=== PATIENT | female | born 1965 | race Caucasian/White ===

== ENCOUNTER → 2017-09-20 | Outpatient (CLI) | payer SELFPAY ==
--- NOTE | 2017-09-21 09:31 | ECHOF ---
Referral Reason:R07.9 Intermittent Chest Pain MEASUREMENTS -------- HEIGHT: 170.2 cm WEIGHT: 76.2 kg BP: 128/75 RVIDd: 2.8 cm (< 3.3) IVSd: 1.0 cm (0.6 - 1.1) LVIDd: 3.7 cm (3.9 - 5.3) LVPWd: 1.2 cm (0.6 - 1.1) IVSs: 1.4 cm LVIDs: 3.3 cm LVPWs: 1.4 cm LAESV Index (A-L): 11.20 ml/m Ao Diam: 2.3 cm (2.0 - 3.7) LA Diam: 3.3 cm (2.7 - 3.8) MV EXCURSION: 13.666 mm (> 18.000) MV EF SLOPE: 87 mm/s (70 - 150) EPSS: 0.6 cm MV E Kumar: 0.78 m/s MV DecT: 232 ms MV A Kumar: 0.78 m/s MV E/A Ratio: 1.01 RAP: 5.00 mmHg RVSP: 11.33 mmHg FINDINGS -------- Sinus rhythm. This was a technically adequate study. The left ventricular size is normal. There is borderline concentric left ventricular hypertrophy. Overall left ventricular systolic function is normal with, an EF between 55 - 60 %. The right ventricle is normal in size and function. Normal LA size by volume 22+/-6 ml/m2. The right atrium is normal in size. The aortic valve is trileaflet, and appears structurally normal. No aortic stenosis or regurgitation. The mitral valve leaflets are mildly thickened. There is trace mitral regurgitation. Trace tricuspid regurgitation present. Right ventricular systolic pressure is normal at < 35 mmHg. There is no evidence of pulmonary hypertension. The pulmonic valve was not well visualized. The aortic root size is normal. Normal inferior vena cava with normal inspiratory collapse consistent with estimated right atrial pre ssure of 5 mmHg. The pericardium is normal. Echo free space indicative of a pericardial fat pad. There is a trivia l pericardial effusion present. CONCLUSIONS -------- 1. Sinus rhythm. 2. This was a technically adequate study. 3. The left ventricular size is normal. 4. There is borderline concentric left ventricular hypertrophy. 5. Overall left ventricular systolic function is normal with, an EF between 55 - 60 %. 6. Normal LA size by volume 22+/-6 ml/m2. 7. The aortic valve is trileaflet, and appears structurally normal. No aortic stenosis or regurgitati on. 8. The mitral valve leaflets are mildly thickened. 9. There is trace mitral regurgitation. 10. Trace tricuspid regurgitation present. 11. Right ventricular systolic pressure is normal at < 35 mmHg. 12. There is no evidence of pulmonary hypertension. 13. The pulmonic valve was not well visualized. 14. The aortic root size is normal. 15. There is a trivial pericardial effusion present. RECEIVING INSPECTOR: Nelson Jones RDCS
== END | disposition home or self-care (01) ==
LOC: RADECHMAIN 14:55
PROVIDERS: ATTEND Family Medicine
DX: I51.7 Cardiomegaly (principal)
CPT/HCPCS: 93306

== ENCOUNTER 2017-09-27 10:37 | Observation (INO) | payer OTHER ==
[2017-09-27] MEDS ORDERED: NITROGLYCERIN OINT 1 INCH/GM PACKET TOPICAL STA (10:54)
--- NOTE | 2017-09-27 11:00 | ED ---
General Adult HPI - General Chief complaint: Chest Pain Stated complaint: Chest Pain Time Seen by Provider: 09/27/17 10:40 Source: patient, RN notes reviewed Mode of arrival: EMS Limitations: no limitations - History of Present Illness Initial comments: This is a 52-year-old female who presents emergency Department complaining that she started having chest pain yesterday she denies any radiation of the pain but she does states she is more short of breath than normal. Patient states she does have high cholesterol and continues to smoke. Patient also states she she has a strong family history. Patient states the pain does come and go and lasts about a half hour to an hour at a time and currently she is chest pain- free. Patient states she did take an aspirin prior to arrival. Patient denies any recent fever chills or cough. Patient denies any abdominal pain patient denies any nausea or vomiting or diarrhea today. Patient denies headache patient denies numbness weakness. Patient denies lightheadedness dizziness or near syncopal episode. Patient went to see her primary medical care doctor today and they directed her to the emergency department. - Related Data Home Medications Medication Instructions Recorded Confirmed Albuterol Inhaler [Ventolin Hfa 1 - 2 puff INHALATION RT-Q6H PRN 09/27/17 Inhaler] Albuterol Nebulized [Ventolin 2.5 mg INHALATION RT-BID 09/27/17 09/27/17 Nebulized] Ergocalciferol [Vitamin D2] 50,000 unit PO MOFR 09/27/17 09/27/17 OLANZapine [ZyPREXA] 5 mg PO DAILY 09/27/17 09/27/17 Simvastatin [Zocor] 10 mg PO DAILY 09/27/17 09/27/17 Allergies Allergy/AdvReac Type Severity Reaction Status Date / Time codeine AdvReac Nausea & Verified 09/27/17 11:42 Vomiting Review of Systems ROS Statement: Those systems with pertinent positive or pertinent negative responses have been documented in the HPI. ROS Other: All systems not noted in ROS Statement are negative. Past Medical History Past Medical History: Hyperlipidemia History of Any Multi-Drug Resistant Organisms: None Reported Past Psychological History: Depression Smoking Status: Current every day smoker Past Alcohol Use History: None Reported Past Drug Use History: None Reported General Exam - General Exam Comments Initial Comments: GENERAL: Patient is well-developed and well-nourished. Patient is nontoxic and well- hydrated and is in mild distress. ENT: Neck is soft and supple. No significant lymphadenopathy is noted. Oropharynx is clear. Moist mucous membranes. Neck has full range of motion without eliciting any pain. EYES: The sclera were anicteric and conjunctiva were pink and moist. Extraocular movements were intact and pupils were equal round and reactive to light. Eyelids were unremarkable. PULMONARY: Unlabored respirations. Good breath sounds bilaterally. No audible rales rhonchi or wheezing was noted. CARDIOVASCULAR: There is a regular rate and rhythm without any murmurs gallops or rubs. ABDOMEN: Soft and nontender with normal bowel sounds. No palpable organomegaly was noted. There is no palpable pulsatile mass. SKIN: Skin is clear with no lesions or rashes and otherwise unremarkable. NEUROLOGIC: Patient is alert and oriented x3. Cranial nerves II through XII are grossly intact. Motor and sensory are also intact. Normal speech, volume and content. Symmetrical smile. MUSCULOSKELETAL: Normal extremities with adequate strength and full range of motion. No lower extremity swelling or edema. No calf tenderness. LYMPHATICS: No significant lymphadenopathy is noted PSYCHIATRIC: Normal psychiatric evaluation. Normal interpersonal interactions appears functionally intact in deals appropriately with others. No signs of depression. No signs of anxiety. Limitations: no limitations Course Vital Signs 09/27/17 10:42 Temperature 99.2 F Pulse Rate 90 Respiratory 18 Rate Blood Pressure 127/70 O2 Sat by Pulse 99 Oximetry Medical Decision Making - Medical Decision Making EKG shows a normal sinus rhythm at 90 bpm [place] interval is 162 QRS is 72 QT interval 380 QTC is 464 patient's EKG shows no ST segment elevation or depression or T wave abnormalities are noted. Chest x-ray shows no acute abnormality Patient has significant risk factors and pain was consistent with unstable angina. I started the patient on heparin. I spoke with Dr. Pisano he agreed to admit the patient admitted the patient I consult cardiology. I continue the aspirin and Nitropaste and heparin on the floor. - Lab Data Result diagrams: 09/27/17 11:10 09/27/17 11:10 Lab Results 09/27/17 09/27/17 09/27/17 Range/Units 11:10 11:10 11:10 WBC 7.1 (3.8-10.6) k/uL RBC 4.12 (3.80-5.40) m/uL Hgb 13.3 (11.4-16.0) gm/dL Hct 41.0 (34.0-46.0) % MCV 99.5 (80.0-100.0) fL MCH 32.3 (25.0-35.0) pg MCHC 32.4 (31.0-37.0) g/dL RDW 12.8 (11.5-15.5) % Plt Count 260 (150-450) k/uL Neutrophils % 60 % Lymphocytes % 33 % Monocytes % 5 % Eosinophils % 1 % Basophils % 1 % Neutrophils # 4.2 (1.3-7.7) k/uL Lymphocytes # 2.3 (1.0-4.8) k/uL Monocytes # 0.3 (0-1.0) k/uL Eosinophils # 0.1 (0-0.7) k/uL Basophils # 0.0 (0-0.2) k/uL PT (9.0-12.0) sec INR (<1.2) APTT (22.0-30.0) sec Sodium 145 (137-145) mmol/L Potassium 4.1 (3.5-5.1) mmol/L Chloride 104 (98-107) mmol/L Carbon Dioxide 31 H (22-30) mmol/L Anion Gap 10 mmol/L BUN 21 H (7-17) mg/dL Creatinine 0.80 (0.52-1.04) mg/dL Est GFR (MDRD) Af Amer >60 (>60 ml/min/1.73 sqM) Est GFR (MDRD) Non-Af >60 (>60 ml/min/1.73 sqM) Glucose 80 (74-99) mg/dL Calcium 9.8 (8.4-10.2) mg/dL Magnesium 2.1 (1.6-2.3) mg/dL Total Bilirubin <0.1 L (0.2-1.3) mg/dL AST 24 (14-36) U/L ALT 18 (9-52) U/L Alkaline Phosphatase 68 (38-126) U/L Total Creatine Kinase 147 H (30-135) U/L CK-MB (CK-2) 1.4 (0.0-2.4) ng/mL CK-MB (CK-2) Rel Index 1.0 Troponin I <0.012 (0.000-0.034) ng/mL Total Protein 6.8 (6.3-8.2) g/dL Albumin 4.1 (3.5-5.0) g/dL 09/27/17 Range/Units 11:10 WBC (3.8-10.6) k/uL RBC (3.80-5.40) m/uL Hgb (11.4-16.0) gm/dL Hct (34.0-46.0) % MCV (80.0-100.0) fL MCH (25.0-35.0) pg MCHC (31.0-37.0) g/dL RDW (11.5-15.5) % Plt Count (150-450) k/uL Neutrophils % % Lymphocytes % % Monocytes % % Eosinophils % % Basophils % % Neutrophils # (1.3-7.7) k/uL Lymphocytes # (1.0-4.8) k/uL Monocytes # (0-1.0) k/uL Eosinophils # (0-0.7) k/uL Basophils # (0-0.2) k/uL PT 9.4 (9.0-12.0) sec INR 0.9 (<1.2) APTT 22.1 (22.0-30.0) sec Sodium (137-145) mmol/L Potassium (3.5-5.1) mmol/L Chloride (98-107) mmol/L Carbon Dioxide (22-30) mmol/L Anion Gap mmol/L BUN (7-17) mg/dL Creatinine (0.52-1.04) mg/dL Est GFR (MDRD) Af Amer (>60 ml/min/1.73 sqM) Est GFR (MDRD) Non-Af (>60 ml/min/1.73 sqM) Glucose (74-99) mg/dL Calcium (8.4-10.2) mg/dL Magnesium (1.6-2.3) mg/dL Total Bilirubin (0.2-1.3) mg/dL AST (14-36) U/L ALT (9-52) U/L Alkaline Phosphatase (38-126) U/L Total Creatine Kinase (30-135) U/L CK-MB (CK-2) (0.0-2.4) ng/mL CK-MB (CK-2) Rel Index Troponin I (0.000-0.034) ng/mL Total Protein (6.3-8.2) g/dL Albumin (3.5-5.0) g/dL Critical Care Time Critical Care Time: Yes Total Critical Care Time: 35 Disposition Clinical Impression: Unstable angina pectoris Disposition: ADMITTED IP TO THIS HOSP Referrals: Agustina Padron MD [Primary Care Provider] - 1-2 days Time of Disposition: 12:11
[2017-09-27 11:26] LABS: Basophils % (A) 1 %; Eosinophils # (A) 0.1 k/uL (0-0.7); Eosinophils % (A) 1 %; HGB 13.3 gm/dL (11.4-16.0); Lymphocytes # (A) 2.3 k/uL (1.0-4.8); Lymphocytes % (A) 33 %; MCH 32.3 pg (25.0-35.0); MCHC 32.4 g/dL (31.0-37.0); MCV 99.5 fL (80.0-100.0); Mean Platelet Volume 7.9; Monocytes # (A) 0.3 k/uL (0-1.0); Monocytes % (A) 5 %; Neutrophils # (A) 4.2 k/uL (1.3-7.7); Neutrophils % (A) 60 %; Platelet Count 260 k/uL (150-450); RBC 4.12 m/uL (3.80-5.40); RDW 12.8 % (11.5-15.5); WBC 7.1 k/uL (3.8-10.6)
[2017-09-27 11:33] LABS: ALT 18 U/L (9-52); AST 24 U/L (14-36); Albumin 4.1 g/dL (3.5-5.0); Alkaline Phosphatase 68 U/L (38-126); Anion Gap 10 mmol/L; Blood Urea Nitrogen 21 mg/dL (7-17); Calcium 9.8 mg/dL (8.4-10.2); Carbon Dioxide 31 mmol/L (22-30); Chloride 104 mmol/L (98-107); Glucose 80 mg/dL (74-99); Magnesium 2.1 mg/dL (1.6-2.3); Sodium 145 mmol/L (137-145); Total Bilirubin <0.1 mg/dL (0.2-1.3); Total Protein 6.8 g/dL (6.3-8.2)
[2017-09-27 11:34] LABS: Potassium 4.1 mmol/L (3.5-5.1)
[2017-09-27 11:41] LABS: Creatine Kinase 147 U/L (30-135)
--- NOTE | 2017-09-27 11:42 | XR ---
EXAMINATION TYPE: XR chest 2V DATE OF EXAM: 09/27/2017 COMPARISON: NONE INDICATION: Chest pain x2 days TECHNIQUE: Frontal and lateral views of the chest are obtained. FINDINGS: The heart size is normal. The pulmonary vasculature is normal. The lungs are clear. IMPRESSION: 1. No acute pulmonary process.
[2017-09-27 11:55] LABS: Creatine Kinase MB 1.4 ng/mL (0.0-2.4); Troponin I <0.012 ng/mL (0.000-0.034)
[2017-09-27 12:09] LABS: INR 0.9 (<1.2); Partial Thromboplastin Time 22.1 sec (22.0-30.0); Prothrombin Time 9.4 sec (9.0-12.0)
[2017-09-27] MEDS ORDERED: HEPARIN SODIUM,PORCINE 5,000 UNIT/ML 1 ML VIAL IV ONE (12:09)
[2017-09-27] MEDS ORDERED: NITROGLYCERIN SL TABS 0.4 MG TAB SUBLINGUAL PRN (12:11)
[2017-09-27] MEDS ORDERED: HEPARIN SOD,PORK IN 0.45% NACL 25,000 UNIT in 0.45% NACL 1 500ML.BAG IV SCH (12:15)
[2017-09-27] MEDS ORDERED: ALBUTEROL NEBULIZED 2.5 MG/3 ML INHALATION PRN (14:44)
[2017-09-27] MEDS ORDERED: TEMAZEPAM 15 MG CAP PO PRN (14:45)
[2017-09-27] MEDS ORDERED: ALPRAZolam 0.25 MG TAB PO PRN (14:45)
--- NOTE | 2017-09-27 15:27 | HP ---
HISTORY AND PHYSICAL DATE OF SERVICE: 09/27/2017 CHIEF COMPLAINT: Chest pain. HISTORY OF PRESENT ILLNESS: This 52-year-old woman with a past history of COPD, hypertension, hyperlipidemia , history of pneumonia, history bronchitis, history of depression, PTSD being followed by Dr. Agustina Padron in the outpatient setting was admitted with chest pain. The patient has had chest pains also the last night which was pressure type of pain which lasted for a few minutes. Pain also associated with shortness of breath and yesterday the patient had sweating. Two days ago the patient had sweating but last night, the patient not did not have sweating. Patient came to [facility] and was admitted for further evaluation and treatment. There is no history of fever, rigors. No history of headache, loss consciousness or seizures at this time. PAST MEDICAL HISTORY: History of COPD, hyperlipidemia, history of pneumonia, history of bronchitis, cancer surgery, history of depression and PTSD. MEDICATIONS: Prior to admission include: 1. Zyprexa 5 mg p.o. daily. 2. Vitamin D2 3000 daily. 3. Ventolin 2.5 b.i.d. 4. Ventolin 1-2 puffs q.6h p.r.n. inhaler. 5. Zocor 10 mg p.o. daily. ALLERGIES: CODEINE. FAMILY HISTORY: History of hypertension in the family. SOCIAL HISTORY: History of smoking. No history of alcohol intake. The patient apparently homeless at this time. REVIEW OF SYSTEMS: HEENT: No diminished vision. No diminished hearing. Cardiovascular as mentioned earlier. Respirations: As mentioned earlier. GI no nausea or vomiting. : No dysuria. Nervous system: No numbness, weakness. Allergy/Immunology: No asthma or hayfever. Musculoskeletal: As mentioned earlier. Allergy/immunology: No asthma or hay fever. Hematology/Oncology: No history of anemia. Endocrine: No history of diabetes, hypothyroidism. Constitutional: As mentioned earlier. Dermatology: Negative. Rheumatology: Negative. Psychiatry: As mentioned earlier. PHYSICAL EXAM: Patient is alert, oriented x3. Pulse is 77, blood pressure 135/72, respirations 16, temperature 98.7, pulse ox 97% on room air. HEENT: Conjunctivae normal. Neck : No jugular venous distention. Cardiovascular: S1, S2. Respiratory: Breath sounds diminished in the bases. A few rhonchi. No crackles. ABDOMEN: Soft, nontender. No mass palpable. Legs no edema. No swelling. Central nervous system: Higher functions as mentioned earlier. Moves all four extremities. No focal deficits. Lymphatics: No lymph nodes palpable in the neck, axillae or groin. Skin no ulcer, rash or bleeding. LABS: CBC within normal limits. INR 0.9, sodium 140, potassium 4.1. ASSESSMENT: 1. Chest pain possible unstable angina. 2. History of nicotine dependence. 3. History of chronic obstructive pulmonary disease. 4. Hyperlipidemia. 5. History pneumonia. 6. History of bronchitis. 7. History of cervical cancer surgeries. 8. History of depression. 9. PTSD. RECOMMENDATIONS AND DISCUSSION: In this 52-year-old woman who presented with multiple complex medical issues, at this time recommend to continue current medications, symptomatic treatment, management and smoking cessation. Unstable angina protocol. Antiplatelet agents. Cardiology consultation. Possible stress test. Closely follow. Guarded prognosis. Copy of dictation being forwarded to Dr. Agustina Padron. MMLIANA / TEOFILON: [id number] / MTDMorteza
[2017-09-27] MEDS: NITROGLYCERIN OINT 1 INCH/GM PACKET TOPICAL SCH (18:33)
[2017-09-27] MEDS: NICOTINE 14MG/24HR PATCH TRANSDERM SCH (18:33)
[2017-09-27 18:39] LABS: Appearance,Urine Clear (Clear); Bilirubin,Urine Negative (Negative); Blood,Urine Negative (Negative); Color,Urine Light Yellow; Glucose,Urine (UA) Negative (Negative); Ketones,Urine Negative (Negative); Leukocyte Esterase,Urine Negative (Negative); Nitrite,Urine Negative (Negative); PH, Urine 5.5 (5.0-8.0); Protein,Urine Negative (Negative); Specific Gravity,Urine 1.005 (1.001-1.035); Urobilinogen,Urine <2.0 mg/dL (<2.0)
[2017-09-27 19:27] LABS: Creatine Kinase 124 U/L (30-135)
[2017-09-27 19:41] LABS: Creatine Kinase MB 0.9 ng/mL (0.0-2.4); Troponin I <0.012 ng/mL (0.000-0.034)
[2017-09-27] MEDS: ALBUTEROL NEBULIZED 2.5 MG/3 ML INHALATION SCH (20:28)
[2017-09-27 23:26] LABS: Creatine Kinase 110 U/L (30-135)
[2017-09-27 23:39] LABS: Creatine Kinase MB 0.9 ng/mL (0.0-2.4); Troponin I <0.012 ng/mL (0.000-0.034)
[2017-09-28] MEDS: NITROGLYCERIN OINT 1 INCH/GM PACKET TOPICAL SCH ×2 (01:15→06:01)
[2017-09-28 03:20] LABS: HCT 38.3 % (34.0-46.0); HGB 11.9 gm/dL (11.4-16.0); MCH 31.7 pg (25.0-35.0); MCHC 31.2 g/dL (31.0-37.0); MCV 101.6 fL (80.0-100.0); Platelet Count 216 k/uL (150-450); RBC 3.77 m/uL (3.80-5.40); RDW 12.9 % (11.5-15.5); WBC 5.4 k/uL (3.8-10.6)
[2017-09-28 03:30] LABS: Anion Gap 7 mmol/L; Blood Urea Nitrogen 18 mg/dL (7-17); Calcium 9.2 mg/dL (8.4-10.2); Carbon Dioxide 28 mmol/L (22-30); Chloride 107 mmol/L (98-107); Cholesterol 161 mg/dL (<200); Glucose 94 mg/dL (74-99); HDL Cholesterol 58 mg/dL (40-60); LDL Cholesterol,Calculated 87 mg/dL (0-99); Potassium 4.2 mmol/L (3.5-5.1); Sodium 142 mmol/L (137-145); Triglycerides 79 mg/dL (<150)
[2017-09-28 05:15] LABS: Band Neutrophils % 2 %; Eosinophils # (M) 0.05 k/uL (0-0.7); Monocytes # (M) 0.22 k/uL (0-1.0); Neutrophils % (M) 30 %; Nucleated Red Blood Cells 0 /100 WBC (0-0); Total Cells Counted 100
[2017-09-28 05:20] LABS: Anisocytosis (M) Present
[2017-09-28 05:23] LABS: Polychromasia Present
[2017-09-28] MEDS ORDERED: ACETAMINOPHEN TAB 325 MG TAB PO PRN (07:15)
[2017-09-28] MEDS ORDERED: PANTOPRAZOLE 40 MG TABLET PO SCH (07:30)
[2017-09-28 07:40] VITALS: BP 92/49; RESP 16; TEMP 98.2
[2017-09-28] MEDS: ALBUTEROL NEBULIZED 2.5 MG/3 ML INHALATION SCH (07:46)
[2017-09-28] MEDS ORDERED: ASPIRIN 325 MG TAB PO SCH (09:00)
[2017-09-28] MEDS ORDERED: OLANZapine 5 MG TAB PO SCH (09:00)
[2017-09-28] MEDS ORDERED: ATORVASTATIN 10 MG TAB PO SCH (09:00)
[2017-09-28] MEDS: NICOTINE 14MG/24HR PATCH TRANSDERM SCH (09:56)
[2017-09-28 11:46] VITALS: PULSE 80
--- NOTE | 2017-09-28 11:56 | P.CRDCN ---
History of Present Illness Consult date: 09/28/17 Consult reason: chest pain History of present illness: Mrs. Jones is a pleasant 52-year-old past medical history significant for COPD, depression and chronic tobacco abuse. She denies history of coronary artery disease and has never seen a court recording monitor for any reason. We have been asked to see her in consultation for complaints of chest pain. She states she has had 2 episodes over the past 2 days, 1 each day, where she was walking and she developed mid-sternal sharp chest pain associated with shortness of breath, palpitations, wheezing, dizziness and nausea. The pain does not radiate to her arms, back, neck or jaw. She sat down once the symptoms started and the discomfort went away eventually, not immediately. At the time of my exam she is chest pain free but complains of pain to the left mid back that she states is chronic. The pain in the back is reproducible with palpation. EKG on arrival reveals sinus mechanism with no acute ST or T-wave abnormalities. Chest xray is negative for an acute cardiopulmonary process. Laboratory data reviewed, hemoglobin 11.9, platelets 216, potassium 4.2, magnesium 2.1, cardiac enzymes negative 3, LDL 87, HDL 58 total cholesterol 161. Current cardiac medications include simvastatin 10 mg daily. She had an echocardiogram done last week as an outpatient per her PCP which revealed preserved LV function with EF 55-60%, trace MR and TR. She denies ever having had a stress test or cardiac catheterization. Review of Systems At the time of my exam: CONSTITUTIONAL: Denies fever. Denies chills. EYES: Denies blurred vision. Denies vision changes. Denies eye pain. EARS, NOSE, MOUTH & THROAT: Denies headache. Denies sore throat. Denies ear pain. CARDIOVASCULAR: Denies chest pain. Denies shortness of breath. Denies orthopnea. Denies PND. Denies palpitations. RESPIRATORY: Denies cough. GASTROINTESTINAL: Denies abdominal pain. Denies diarrhea. Denies constipation. Denies nausea. Denies vomiting. MUSCULOSKELETAL: Complains of chronic left mid back ache, reproducible. INTEGUMENTARY: Denies pruitis. Denies rash. NEUROLOGIC: Denies numbness. Denies tingling. Denies weakness. PSYCHIATRIC: Denies anxiety. Denies depression. ENDOCRINE: Denies fatigue. Denies weight change. Denies polydipsia. Denies polyurina. GENITOURINARY: Denies burning, hematuria or urgency with micturation. HEMATOLOGIC: Denies history of anemia. Denies bleeding. Past Medical History Past Medical History: Cancer, COPD, Hyperlipidemia, Pneumonia Additional Past Medical History / Comment(s): Bronchitis, cervical cancer with surgeries. History of Any Multi-Drug Resistant Organisms: None Reported Additional Past Surgical History / Comment(s): Cervix cancer pt had frozen then 2 resections of lesion then hysterectomy. Past Anesthesia/Blood Transfusion Reactions: No Reported Reaction Smoking Status: Current every day smoker - Past Family History Mother Family Medical History: Hypertension Additional Family Medical History / Comment(s): Mother is 79yrs old. Father Additional Family Medical History / Comment(s): Father is 84 yrs old and pt has not had much contact with him for years. Medications and Allergies Home Medications Medication Instructions Recorded Confirmed Type Albuterol Inhaler [Ventolin Hfa 1 - 2 puff INHALATION RT-Q6H PRN 09/27/17 History Inhaler] Albuterol Nebulized [Ventolin 2.5 mg INHALATION RT-BID 09/27/17 09/27/17 History Nebulized] Ergocalciferol [Vitamin D2] 50,000 unit PO MOFR 09/27/17 09/27/17 History OLANZapine [ZyPREXA] 5 mg PO DAILY 09/27/17 09/27/17 History Simvastatin [Zocor] 10 mg PO DAILY 09/27/17 09/27/17 History Allergies Allergy/AdvReac Type Severity Reaction Status Date / Time codeine AdvReac Nausea & Verified 09/27/17 11:42 Vomiting Physical Exam Vitals: Vital Signs Temp Pulse Pulse Pulse Resp BP BP 09/28/17 07:46 80 09/28/17 07:36 98.2 F 81 16 92/49 09/28/17 04:00 87 18 09/28/17 03:10 98 F 82 18 99/50 09/28/17 00:00 85 18 09/27/17 22:18 89 18 109/50 09/27/17 20:29 92 09/27/17 20:00 90 18 09/27/17 19:16 97.9 F 91 18 98/57 09/27/17 15:48 98.0 F 96 17 112/56 09/27/17 14:24 98.7 F 77 16 125/72 09/27/17 13:04 97.4 F L 79 18 105/56 09/27/17 10:42 99.2 F 90 18 127/70 Pulse Ox 09/28/17 07:46 09/28/17 07:36 94 L 09/28/17 04:00 09/28/17 03:10 93 L 09/28/17 00:00 09/27/17 22:18 91 L 09/27/17 20:29 94 L 09/27/17 20:00 09/27/17 19:16 94 L 09/27/17 15:48 95 09/27/17 14:24 96 09/27/17 13:04 98 09/27/17 10:42 99 Intake and Output 09/27/17 09/28/17 09/28/17 22:59 06:59 14:59 Intake Total 134.053 Balance 134.053 Intake: Intake, IV Titration 134.053 Amount Heparin Sod,Pork in 0.45% 134.053 NaCl 25,000 unit In 0.45 % NaCl 1 500ml.bag @ 12 UNITS/KG/HR 18.28 mls/hr IV .Q24H [facility] Rx#: [id number] Other: Voiding Method Toilet Toilet Weight 72.8 kg Blood pressure 92/49 heart rate 81 afebrile GENERAL: This is a 52-year-old female in no apparent distress at the time of my examination. HEENT: Head is atraumatic, normocephalic. Pupils are equal, round. Sclerae anicteric. Conjunctivae are clear. Mucous membranes of the mouth are moist. Neck is supple. There is no jugular venous distention. No carotid bruit is heard. LUNGS: Clear to auscultation no wheezes, rales or rhonchi. No chest wall tenderness is noted on palpation or with deep breathing. HEART: Regular rate and rhythm without murmurs, rubs or gallops. S1 and S2 heard. ABDOMEN: Soft, nontender. Bowel sounds are heard. No organomegaly noted. EXTREMITIES: No evidence of peripheral edema and no calf tenderness noted. VASCULAR: Radial and dorsalis pedis pulses palpated, no evidence of clubbing. NEUROLOGIC: Patient is awake, alert and oriented x3. Results 09/28/17 02:15 09/28/17 02:15 Cardiac Enzymes 09/27/17 09/27/17 09/27/17 Range/Units 11:10 11:10 18:43 AST 24 (14-36) U/L CK-MB (CK-2) 1.4 0.9 (0.0-2.4) ng/mL Troponin I <0.012 <0.012 (0.000-0.034) ng/mL 09/27/17 Range/Units 22:54 AST (14-36) U/L CK-MB (CK-2) 0.9 (0.0-2.4) ng/mL Troponin I <0.012 (0.000-0.034) ng/mL Coagulation 09/27/17 09/27/17 09/28/17 Range/Units 11:10 18:43 02:15 PT 9.4 (9.0-12.0) sec APTT 22.1 40.7 H 51.8 H (22.0-30.0) sec Lipids 09/28/17 Range/Units 02:15 Triglycerides 79 (<150) mg/dL Cholesterol 161 (<200) mg/dL HDL Cholesterol 58 (40-60) mg/dL CBC 09/27/17 09/28/17 Range/Units 11:10 02:15 WBC 7.1 5.4 (3.8-10.6) k/uL RBC 4.12 3.77 L (3.80-5.40) m/uL Hgb 13.3 11.9 (11.4-16.0) gm/dL Hct 41.0 38.3 (34.0-46.0) % Plt Count 260 216 (150-450) k/uL Comprehensive Metabolic Panel 09/27/17 09/28/17 Range/Units 11:10 02:15 Sodium 145 142 (137-145) mmol/L Potassium 4.1 4.2 (3.5-5.1) mmol/L Chloride 104 107 (98-107) mmol/L Carbon Dioxide 31 H 28 (22-30) mmol/L BUN 21 H 18 H (7-17) mg/dL Creatinine 0.80 0.90 (0.52-1.04) mg/dL Glucose 80 94 (74-99) mg/dL Calcium 9.8 9.2 (8.4-10.2) mg/dL AST 24 (14-36) U/L ALT 18 (9-52) U/L Alkaline Phosphatase 68 (38-126) U/L Total Protein 6.8 (6.3-8.2) g/dL Albumin 4.1 (3.5-5.0) g/dL Current Medications Generic Name Dose Route Start Last Admin Trade Name Freq PRN Reason Stop Dose Admin Acetaminophen 650 mg 09/28/17 07:15 09/28/17 07:31 Tylenol Tab PO 650 mg Q6HR PRN Administration Fever and/ or Mild Pain Albuterol Sulfate 2.5 mg 09/27/17 20:00 09/28/17 07:46 Ventolin Nebulized INHALATION 2.5 mg RT-BID HORTENCIA Administration Albuterol Sulfate 2.5 mg 09/27/17 14:44 Ventolin Nebulized INHALATION RT-Q6H PRN Shortness Of Breath Alprazolam 0.25 mg 09/27/17 14:45 Xanax PO TID PRN Anxiety Aspirin 325 mg 09/28/17 09:00 Aspirin PO DAILY [facility] Atorvastatin Calcium 10 mg 09/28/17 09:00 Lipitor PO DAILY [facility] Heparin Sodium/Sodium Chloride 500 mls @ 18.28 mls/hr 09/27/17 12:15 20:22 25,000 unit/ Sodium Chloride IV 14.76 units/kg/hr .Q24H HORTENCIA 22.5 mls/hr Protocol Titration 12 UNITS/KG/HR Nicotine 1 patch 09/27/17 14:45 09/27/17 18:33 Habitrol 14mg/24hr Patch TRANSDERM 1 patch DAILY [facility] Administration Nitroglycerin 1 inch 09/27/17 18:00 09/28/17 06:01 Nitro-Bid Oint TOPICAL Not Given Q6HR [facility] Nitroglycerin 0.4 mg 09/27/17 12:11 Nitrostat SUBLINGUAL Q5M PRN Chest Pain Olanzapine 5 mg 09/28/17 09:00 Zyprexa PO DAILY [facility] Pantoprazole Sodium 40 mg 09/28/17 07:30 Protonix PO AC-BRKFST [facility] Temazepam 15 mg 09/27/17 14:45 Restoril PO HS PRN Insomnia Intake and Output 09/27/17 09/28/1718 22:59 06:59 14:59 Intake Total 134.053 Balance 134.053 Intake: Intake, IV Titration 134.053 Amount Heparin Sod,Pork in 0.45% 134.053 NaCl 25,000 unit In 0.45 % NaCl 1 500ml.bag @ 12 UNITS/KG/HR 18.28 mls/hr IV .Q24H [facility] Rx#: [id number] Other: Voiding Method Toilet Toilet Weight 72.8 kg 09/28/17 02:15 09/28/17 02:15 Assessment and Plan Assessment: ASSESSMENT 1. Chest pain, atypical. EKG shows no signs daily ischemia. Enzymes are negative 3 2. Dyslipidemia 3. COPD 4. Chronic tobacco abuse PLAN Discontinue heparin infusion and nitroglycerin paste. Perform stress echocardiogram to assess for exercise-induced cardiac ischemia. Further recommendations will be based upon findings of above diagnostic testing. If this is negative she is stable from a cardiac perspective. Smoking cessation discussed and recommended. Thank you kindly for this consultation. Nurse Practitioner note has been reviewed, I agree with a documented findings and plan of care. Patient was seen and examined.
--- NOTE | 2017-09-28 14:25 | ECHOS ---
STRESS ECHOCARDIOGRAM INDICATIONS: Chest pain. MEDICATIONS: Cholesterol pill. BASELINE HEART RATE: 100 BASELINE BLOOD PRESSURE: 154/61 MAXIMUM HEART RATE: 162 MAXIMUM BLOOD PRESSURE: 136/69 85% MPHR: 143 100% MPHR: 168 METS: 5.8 MAXIMUM STAGE REACHED: I TOTAL EXERCISE TIME: 5:00 CLINICAL INFORMATION: Baseline rhythm is sinus mechanism, rate of 100, normal axis, intervals. No echocardiogram. Baseline blood pressure 154/61 mmHg. Patient exercised on Arnaldo protocol for 5 minute reaching peak heart rate of 162 beats per minute, which is equal to 96% maximum predicted heart rate. Peak blood pressure 136/69 mmHg. Test was terminated due to fatigue. There was no chest pain. Electrocardiographic monitoring revealed no evidence of diagnostic ischemic ST deviation. FINDINGS: Baseline echocardiogram revealed normal wall motion . At peak exercise, there was normal wall motion and augmentation with no hypokinesis or dyskinesis. CONCLUSION: 1. Average exercise tolerance with normal cardiac response to exercise. 2. Normal stress echocardiogram with no evidence of stress-induced ischemia. MMODL / IJN: [id number] / [facility]
--- NOTE | 2017-09-28 19:37 | DS ---
DISCHARGE SUMMARY DATE OF SERVICE: 09/28/2017 FINAL DIAGNOSES: 1. Chest pain possible musculoskeletal with negative stress echo. 2. History of nicotine dependence. 3. Chronic obstructive pulmonary disease. 4. Hyperlipidemia. 5. History of pneumonia. 6. History of bronchitis. 7. Cervical cancer surgeries. 8. History of depression. 9. History of PTSD. DISCHARGE DISPOSITION: The patient is being discharged in stable condition with guarded prognosis. HISTORY OF PRESENT ILLNESS: This 52-year-old woman with past medical history of multiple medical problems, being followed by Dr. Padron was admitted with chest pain. Myocardial infarction ruled out. Cardiology performed a stress echo, which is normal. The patient improved significantly. Patient being discharged in stable condition with guarded prognosis. FINAL EXAM: Vital signs are stable. Cardiovascular: S1, S2. Abdomen is soft. Nervous system: No focal deficits. DISCHARGE MEDICATIONS AND ADVICE: 1. Diet is cardiac diet. 2. Activity limited until followup. 3. Follow up with Dr. Watson as advised. 4. Follow up with Dr. Agustina Padron in 2-3 days. MEDICATIONS: 1. Ventolin 1-2 puffs q.6h p.r.n. 2. Nebulizer 2.5 b.i.d. 3. Vitamin D2 50,000 daily. 4. Habitrol 14 daily. 5. No smoking. 6. Zyprexa 5 mg. 7. Zocor 10 mg p.o. daily. Once again, the patient is being discharged in stable condition with guarded prognosis. MMODL / IJN: [id number] /
== END 2017-09-28 15:12 | disposition home or self-care (01) ==
LOC: EC 10:37 → 3OBS 12:11
PROVIDERS: ADMIT Hospitalist; ATTEND Hospitalist
DX: R07.89 Other chest pain (principal); J44.9 Chronic obstructive pulmonary disease, unspecified; E78.5 Hyperlipidemia, unspecified; F43.10 Post-traumatic stress disorder, unspecified; F32.9 Major depressive disorder, single episode, unspecified; F17.200 Nicotine dependence, unspecified, uncomplicated; Z59.0 Homelessness; Z79.899 Other long term (current) drug therapy; Z88.5 Allergy status to narcotic agent; Z87.01 Personal history of pneumonia (recurrent); Z82.49 Family history of ischemic heart disease and other diseases of the circulatory system; Z85.41 Personal history of malignant neoplasm of cervix uteri; Z87.09 Personal history of other diseases of the respiratory system; M54.9 Dorsalgia, unspecified
CPT/HCPCS: 99291 ×2; 96365 ×2; 96376 ×2; 96366 ×2; 36415; 94640 ×3; 94760; 93005; 93017; 93350; 80061; 80053; 80048; 82550; 82553; 83735; 84484; 85025 ×2; 85610; 85730 ×2; 81003; 71046; G0378 ×2; S4990 ×2; J1644 ×2

== ENCOUNTER 2018-04-06 08:14 | Emergency (ER) | payer OTHER ==
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
[2018-04-06 09:18] LABS: Amphetamine Screen,Urine Not Detected (NotDetected); Barbiturate Screen,Urine Not Detected (NotDetected); Benzodiazepines Screen,Urine Not Detected (NotDetected); Cocaine Screen,Urine Not Detected (NotDetected); Methadone Screen, Urine Not Detected (NotDetected); Opiate Screen,Urine Not Detected (NotDetected); Oxycodone Screen, Urine Not Detected (NotDetected); Phencyclidine Screen,Urine Not Detected (NotDetected); Tricyclic Antidepressant,Urine Not Detected (NotDetected); Urn Cannabinoid Scrn Not Detected (NotDetected)
[2018-04-06 11:19] LABS: Basophils % (A) 1 %; Eosinophils # (A) 0.1 k/uL (0-0.7); Eosinophils % (A) 2 %; HCT 41.8 % (34.0-46.0); HGB 13.9 gm/dL (11.4-16.0); Lymphocytes # (A) 2.2 k/uL (1.0-4.8); Lymphocytes % (A) 29 %; MCH 32.2 pg (25.0-35.0); MCHC 33.3 g/dL (31.0-37.0); MCV 96.6 fL (80.0-100.0); Mean Platelet Volume 7.5; Monocytes # (A) 0.4 k/uL (0-1.0); Monocytes % (A) 5 %; Neutrophils # (A) 4.9 k/uL (1.3-7.7); Neutrophils % (A) 63 %; Platelet Count 309 k/uL (150-450); RBC 4.32 m/uL (3.80-5.40); RDW 13.1 % (11.5-15.5); WBC 7.8 k/uL (3.8-10.6)
[2018-04-06 11:23] LABS: Appearance,Urine Cloudy (Clear); Bacteria,Urine Occasional /hpf; Bilirubin,Urine 1+ (Negative); Blood,Urine Trace (Negative); Color,Urine Yellow; Glucose,Urine (UA) Negative (Negative); Hyaline Casts,Urine 22 /lpf (0-2); Ketones,Urine 3+ (Negative); Leukocyte Esterase,Urine Negative (Negative); Mucus,Urine Many /hpf; Nitrite,Urine Negative (Negative); PH, Urine 5.5 (5.0-8.0); Protein,Urine 1+ (Negative); RBC,Urine 1 /hpf (0-5); Specific Gravity,Urine 1.025 (1.001-1.035); Squamous Epithelial Cell,Urine 15 /hpf (0-4); WBC,Urine 2 /hpf (0-5)
[2018-04-06 11:27] LABS: Albumin 4.3 g/dL (3.5-5.0); Calcium 9.7 mg/dL (8.4-10.2); Potassium 4.2 mmol/L (3.5-5.1); Total Bilirubin 0.5 mg/dL (0.2-1.3); Total Protein 7.4 g/dL (6.3-8.2)
[2018-04-06 14:40] VITALS: BP 132/72; PULSE 102; RESP 16; TEMP 97.7
== END 2018-04-06 15:20 ==
LOC: EC 08:14
DX: R45.851 Suicidal ideations (principal); F32.9 Major depressive disorder, single episode, unspecified; J44.9 Chronic obstructive pulmonary disease, unspecified; E78.5 Hyperlipidemia, unspecified; F17.200 Nicotine dependence, unspecified, uncomplicated; Z79.899 Other long term (current) drug therapy; Z88.5 Allergy status to narcotic agent; Z85.41 Personal history of malignant neoplasm of cervix uteri; Z90.710 Acquired absence of both cervix and uterus; Z98.890 Other specified postprocedural states
CPT/HCPCS: 36415; 80053; 80306; 81001; 81025; 82075; 85025; 99285

== ENCOUNTER → 2018-08-09 | Outpatient (CLI) | payer OTHER ==
--- NOTE | 2018-08-12 08:56 | MR ---
EXAMINATION TYPE: MR MRCP DATE OF EXAM: 08/09/2018 COMPARISON: Outside abdominal ultrasound dated 05/14/2018 demonstrating a dilated common bile duct. HISTORY: Unspecified abdominal pain. TECHNIQUE: MRCP was performed without contrast per department protocol. 3-D [id number] imaging w as utilized. FINDINGS: The common bile duct is duct dilated up to 1.1 cm. There is also intrahepatic biliary ducta l dilatation with the left main bile duct measuring 7 mm in the right measuring 6 mm. In the hepatic duct measures 1.2 cm. The main pancreatic duct is nondilated measuring 2.4 mm within the pancreatic b beverly. On coronal T2 nonfat image 15 there is abrupt cut off of the distal common bile duct at the ampu lla of Vater. No obstructing calculus is seen. There is transition from a dilated common bile duct on axial nonfat sat T2 image 15 to diminutive caliber on image 14 again at the ampulla of Vater. Althou gh there is no discrete measurable periampullary mass findings raise suspicion for a periampullary ma ss possibly on axial T2 nonfat sat image 13 and 12 lung ampulla of Vater. No discrete pancreatic mass is seen. There is a T2 hyperintense and T1 hypointense left renal sinus cyst measuring 2.5 cm. On the right th ere is a cortical renal cyst measuring 1.5 cm and a renal sinus cyst measuring 4 mm as well as a parker ical probable renal cyst measuring 4 mm. No hydronephrosis of either kidney. On out of phase imaging there is no significant dropout of signal of the hepatic parenchyma. No discr ete hepatic masses are seen. The gallbladder demonstrates no evidence of cholelithiasis. Heart is not enlarged in its visualized portion. Abdominal aorta is of normal caliber. Adrenal glands, spleen, an d pancreatic parenchyma are homogeneous. No gross evidence of adenopathy in the abdomen. IMPRESSION: Intrahepatic and extra hepatic biliary ductal dilatation with abrupt cut off of the dista l common bile duct at the ampulla of Vater suspicious for a periampullary mass versus less likely foc al short segment high-grade stricture. ERCP could be performed for further evaluation.
== END | disposition home or self-care (01) ==
LOC: RADMRIMAIN 08:51
DX: K83.8 Other specified diseases of biliary tract (principal); R10.9 Unspecified abdominal pain
CPT/HCPCS: 74181

== ENCOUNTER → 2018-11-08 | Outpatient (CLI) | payer OTHER ==
[~2018-11-08] MED LIST: REGADENOSON 0.4 MG/5 ML SYRINGE IV ONE
--- NOTE | 2018-11-08 12:12 | NM ---
EXAMINATION TYPE: NM stress lexiscan cardiolite DATE OF EXAM: 11/08/2018 COMPARISON: NONE HISTORY: Tachycardia TECHNIQUE: After the intravenous administration of 10.09 mCi Tc 99m Sestamibi - Cardiolite resting S PECT images acquired 45 minutes post injection. The patient received 0.4mg Lexiscan, 26.2 mCi Tc 99m Sestamibi - Stress images obtained [address] injection FINDINGS: Review of stress and rest SPECT images demonstrates decreased radio pharmaceutical uptake along the i nferior wall left ventricle on stress as compared to rest images extending toward the apex and also a long the anterior wall on stress imaging as compared to rest images Gated analysis shows normal wall motion with an estimated left ventricular ejection fraction of 60 %. IMPRESSION: Pharmacologically induced left ventricular myocardial ischemia Report relayed to the office of Dr. Costa at the time of interpretation of the exam.
--- NOTE | 2018-11-09 13:23 | EST ---
EXERCISE STRESS AGE: 53 SEX: Female. HT: 5'7" WT: 200 pounds. PROTOCOL: Lexiscan Cardiolite STAGE: DURATION OF EXERCISE: HEART RATE REST: 42 BLOOD PRESSURE REST: 108/69 MAXIMUM HEART RATE ACHIEVED: 90 MAXIMUM BLOOD PRESSURE: 131/81 85% MPHR: 142 100% MPHR: 167 METS: INDICATIONS: Tachycardia. CLINICAL INFORMATION: Nuclear study was performed. Peak heart rate of 80 was achieved. Maximum blood pressure of 122/80 mmHg was noted. Resting EKG shows normal sinus rhythm with normal DC interval and QRS duration and normal ST-T waves. No ST-segment depression suggestive of ischemia is noted. Results of the nuclear study will follow. MMODL / IJN: [id number] /
== END | disposition home or self-care (01) ==
LOC: RADNMMAIN 06:47
PROVIDERS: ATTEND Nuclear Medicine Nuclear Cardiology
DX: I25.9 Chronic ischemic heart disease, unspecified (principal); R07.9 Chest pain, unspecified
CPT/HCPCS: 93017; 78452; A9500; J2785

== ENCOUNTER 2019-05-05 04:30 | Observation (INO) | payer OTHER ==
[2019-05-05] MEDS ORDERED: IPRATROPIUM-ALBUTEROL 3 ML NEB INHALATION STA ×2 (04:44→05:02)
[2019-05-05] MEDS: SODIUM CHLORIDE 0.9% 500 ML 500 ML IV SCH ×2 (04:59→05:30)
--- NOTE | 2019-05-05 05:04 | ED ---
SOB HPI - General Chief Complaint: Shortness of Breath Stated Complaint: Diff Breathing Source: patient, EMS Mode of arrival: EMS Limitations: no limitations - History of Present Illness Initial Comments: Katiuska 53-year-old female with a history of stage III oxygen-dependent COPD who presents the emergency department today for evaluation of 4 days of progressively worsening wheezing shortness of breath is not responding to home breathing treatments. Patient states that for the past 4 days she's been feeling worse, she's had shortness of breath, minimally productive cough. She states she's been using her breathing treatments her on the clock with minimal improvement. Patient states that this morning she felt like she couldn't breathe so she contacted EMS, EMS arrived on scene to find the patient in tripod position with supplemental oxygen and oxygen saturation of only 82%. Patient was given a breathing treatment in route to the hospital with improvement in her respiratory effort though she still had persistent wheezing. Patient denies any fevers chills nausea or vomiting. - Related Data Home Medications Medication Instructions Recorded Confirmed Aspirin EC [Ecotrin Low Dose] 81 mg PO DAILY 04/06/18 04/06/18 Allergies Allergy/AdvReac Type Severity Reaction Status Date / Time codeine AdvReac Nausea & Verified 04/06/18 12:10 Vomiting Review of Systems ROS Statement: Those systems with pertinent positive or pertinent negative responses have been documented in the HPI. ROS Other: All systems not noted in ROS Statement are negative. Past Medical History Past Medical History: Cancer, COPD, Hyperlipidemia, Pneumonia Additional Past Medical History / Comment(s): Bronchitis, cervical cancer with surgeries. History of Any Multi-Drug Resistant Organisms: None Reported Additional Past Surgical History / Comment(s): Cervix cancer pt had frozen then 2 resections of lesion then hysterectomy. Past Anesthesia/Blood Transfusion Reactions: No Reported Reaction Past Psychological History: Anxiety, Depression, PTSD Smoking Status: Current every day smoker Past Alcohol Use History: None Reported Past Drug Use History: None Reported - Past Family History Mother Family Medical History: Hypertension Additional Family Medical History / Comment(s): Mother is 79yrs old. Father Additional Family Medical History / Comment(s): Father is 84 yrs old and pt has not had much contact with him for years. General Exam - General Exam Comments Initial Comments: Physical Exam GENERAL: Appears much older than stated age HENT: Normocephalic, Atraumatic. EYES: PERRL, EOMI PULMONARY: Wheezing in all lung cedeño CARDIOVASCULAR: Tachycardiac regular ABDOMEN: Soft and nontender with normal bowel sounds. SKIN: Skin is clear with no lesions or rashes and otherwise unremarkable. : Deferred NEUROLOGIC: Patient is alert and oriented x3. Moving all extremities spontaneously MUSCULOSKELETAL: Normal extremities with adequate strength and full range of motion. No lower extremity swelling or edema. No calf tenderness. PSYCHIATRIC: Normal psychiatric evaluation. Limitations: no limitations Course Vital Signs 05/05/19 05/05/19 05/05/19 04:34 04:42 04:54 Temperature 99.0 F Pulse Rate 117 H 112 H Respiratory 22 22 Rate Blood Pressure 103/77 O2 Sat by Pulse 97 Oximetry 05/05/19 05/05/19 05/05/19 05:02 05:03 05:13 Temperature Pulse Rate 112 H 112 H 125 H Respiratory Rate Blood Pressure O2 Sat by Pulse Oximetry Medical Decision Making - Medical Decision Making The patient was seen and evaluated, history is obtained from the patient and EMS 53-year-old female with advanced COPD presenting with COPD exacerbation Given the patient's tachycardia and hypoxia septic workup was initiated in case the patient is suffering from pneumonia Labs resulted with hypokalemia no other significant abnormalities Chest x-ray unremarkable no signs of pneumonia Patient mildly improved after repeat breathing treatments at this time and do feel the patient warrants admission to the hospital for evaluation by pulmonology, [id number] breathing treatments and steroids. Patient is agreeable with this. Care was discussed with admitting physician Dr. Eduardo who accepts admission - Lab Data Result diagrams: 05/05/19 05:00 05/05/19 05:00 Lab Results 05/05/19 05/05/19 05/05/19 Range/Units 05:00 05:00 05:00 WBC 7.7 (3.8-10.6) k/uL RBC 3.60 L (3.80-5.40) m/uL Hgb 10.4 L (11.4-16.0) gm/dL Hct 34.3 (34.0-46.0) % MCV 95.4 (80.0-100.0) fL MCH 28.8 (25.0-35.0) pg MCHC 30.2 L (31.0-37.0) g/dL RDW 13.2 (11.5-15.5) % Plt Count 236 (150-450) k/uL Neutrophils % 78 % Lymphocytes % 13 % Monocytes % 5 % Eosinophils % 2 % Basophils % 1 % Neutrophils # 6.0 (1.3-7.7) k/uL Lymphocytes # 1.0 (1.0-4.8) k/uL Monocytes # 0.4 (0-1.0) k/uL Eosinophils # 0.1 (0-0.7) k/uL Basophils # 0.1 (0-0.2) k/uL PT (9.0-12.0) sec INR (<1.2) APTT (22.0-30.0) sec Sodium 140 (137-145) mmol/L Potassium 3.3 L (3.5-5.1) mmol/L Chloride 101 (98-107) mmol/L Carbon Dioxide 32 H (22-30) mmol/L Anion Gap 7 mmol/L BUN 10 (7-17) mg/dL Creatinine 0.88 (0.52-1.04) mg/dL Est GFR (CKD-EPI)AfAm 87 (>60 ml/min/1.73 sqM) Est GFR (CKD-EPI)NonAf 76 (>60 ml/min/1.73 sqM) Glucose 121 H (74-99) mg/dL Plasma Lactic Acid Pedro 1.4 (0.7-2.0) mmol/L Calcium 9.1 (8.4-10.2) mg/dL Total Bilirubin 0.3 (0.2-1.3) mg/dL AST 25 (14-36) U/L ALT 26 (9-52) U/L Alkaline Phosphatase 102 (38-126) U/L Total Protein 6.8 (6.3-8.2) g/dL Albumin 3.9 (3.5-5.0) g/dL Urine Color Urine Appearance (Clear) Urine pH (5.0-8.0) Ur Specific [place] (1.001-1.035) Urine Protein (Negative) Urine Glucose (UA) (Negative) Urine Ketones (Negative) Urine Blood (Negative) Urine Nitrite (Negative) Urine Bilirubin (Negative) Urine Urobilinogen (<2.0) mg/dL Ur Leukocyte Esterase (Negative) Urine RBC (0-5) /hpf Urine WBC (0-5) /hpf Ur Squamous Epith Cells (0-4) /hpf Hyaline Casts (0-2) /lpf Urine Mucus (None) /hpf Influenza Type A RNA (Not Detectd) Influenza Type B (PCR) (Not Detectd) 05/05/19 05/05/19 05/05/19 Range/Units 05:00 05:12 05:12 WBC (3.8-10.6) k/uL RBC (3.80-5.40) m/uL Hgb (11.4-16.0) gm/dL Hct (34.0-46.0) % MCV (80.0-100.0) fL MCH (25.0-35.0) pg MCHC (31.0-37.0) g/dL RDW (11.5-15.5) % Plt Count (150-450) k/uL Neutrophils % % Lymphocytes % % Monocytes % % Eosinophils % % Basophils % % Neutrophils # (1.3-7.7) k/uL Lymphocytes # (1.0-4.8) k/uL Monocytes # (0-1.0) k/uL Eosinophils # (0-0.7) k/uL Basophils # (0-0.2) k/uL PT 9.7 (9.0-12.0) sec INR 0.9 (<1.2) APTT 22.8 (22.0-30.0) sec Sodium (137-145) mmol/L Potassium (3.5-5.1) mmol/L Chloride (98-107) mmol/L Carbon Dioxide (22-30) mmol/L Anion Gap mmol/L BUN (7-17) mg/dL Creatinine (0.52-1.04) mg/dL Est GFR (CKD-EPI)AfAm (>60 ml/min/1.73 sqM) Est GFR (CKD-EPI)NonAf (>60 ml/min/1.73 sqM) Glucose (74-99) mg/dL Plasma Lactic Acid Pedro (0.7-2.0) mmol/L Calcium (8.4-10.2) mg/dL Total Bilirubin (0.2-1.3) mg/dL AST (14-36) U/L ALT (9-52) U/L Alkaline Phosphatase (38-126) U/L Total Protein (6.3-8.2) g/dL Albumin (3.5-5.0) g/dL Urine Color Yellow Urine Appearance Clear (Clear) Urine pH 5.0 (5.0-8.0) Ur Specific [place] 1.018 (1.001-1.035) Urine Protein Trace H (Negative) Urine Glucose (UA) Negative (Negative) Urine Ketones Negative (Negative) Urine Blood Trace H (Negative) Urine Nitrite Negative (Negative) Urine Bilirubin Negative (Negative) Urine Urobilinogen <2.0 (<2.0) mg/dL Ur Leukocyte Esterase Trace H (Negative) Urine RBC 2 (0-5) /hpf Urine WBC 4 (0-5) /hpf Ur Squamous Epith Cells 3 (0-4) /hpf Hyaline Casts 35 H (0-2) /lpf Urine Mucus Few H (None) /hpf Influenza Type A RNA Not Detected (Not Detectd) Influenza Type B (PCR) Not Detected (Not Detectd) Disposition Clinical Impression: Acute exacerbation of chronic obstructive pulmonary disease, Hypoxia, Oxygen dependent Disposition: ADMITTED IP TO THIS HOSP Condition: Serious Referrals: [facility] [Primary Care Provider] - 1-2 days
[2019-05-05 05:12] LABS: Basophils # (A) 0.1 k/uL (0-0.2); Basophils % (A) 1 %; Eosinophils # (A) 0.1 k/uL (0-0.7); Eosinophils % (A) 2 %; HCT 34.3 % (34.0-46.0); HGB 10.4 gm/dL (11.4-16.0); Lymphocytes % (A) 13 %; MCH 28.8 pg (25.0-35.0); MCHC 30.2 g/dL (31.0-37.0); MCV 95.4 fL (80.0-100.0); Mean Platelet Volume 7.7; Monocytes # (A) 0.4 k/uL (0-1.0); Monocytes % (A) 5 %; Neutrophils % (A) 78 %; Platelet Count 236 k/uL (150-450); RDW 13.2 % (11.5-15.5); WBC 7.7 k/uL (3.8-10.6)
[2019-05-05 05:20] LABS: Albumin 3.9 g/dL (3.5-5.0); Calcium 9.1 mg/dL (8.4-10.2); INR 0.9 (<1.2); Partial Thromboplastin Time 22.8 sec (22.0-30.0); Potassium 3.3 mmol/L (3.5-5.1); Prothrombin Time 9.7 sec (9.0-12.0); Total Bilirubin 0.3 mg/dL (0.2-1.3); Total Protein 6.8 g/dL (6.3-8.2)
[2019-05-05 05:38] LABS: Appearance,Urine Clear (Clear); Bilirubin,Urine Negative (Negative); Blood,Urine Trace (Negative); Color,Urine Yellow; Glucose,Urine (UA) Negative (Negative); Hyaline Casts,Urine 35 /lpf (0-2); Ketones,Urine Negative (Negative); Leukocyte Esterase,Urine Trace (Negative); Mucus,Urine Few /hpf; Nitrite,Urine Negative (Negative); Protein,Urine Trace (Negative); RBC,Urine 2 /hpf (0-5); Specific Gravity,Urine 1.018 (1.001-1.035); Squamous Epithelial Cell,Urine 3 /hpf (0-4); Urobilinogen,Urine <2.0 mg/dL (<2.0)
--- NOTE | 2019-05-05 05:51 | XR ---
EXAM: XR Chest, 2 Views CLINICAL HISTORY: ITS.REASON XR Reason: Fever TECHNIQUE: Frontal and lateral views of the chest. COMPARISON: 09/27/2017 FINDINGS: Lungs: No consolidation or mass. Pleural space: No effusion. Heart: No cardiomegaly. Mediastinum: Unremarkable. Bones/joints: No acute findings. IMPRESSION: No acute cardiopulmonary process.
[2019-05-05] MEDS ORDERED: methylPREDNISolone SOD SUCCI 125 MG/2 ML VIAL IV STA (06:01)
[2019-05-05] MEDS ORDERED: SODIUM CHLORIDE 0.9% 1,000 ML IV ONE (06:36)
[2019-05-05] MEDS ORDERED: Potassium Replacement Protocol 1 EACH MISC MISCELLANE PRN (06:52)
[2019-05-05] MEDS: POTASSIUM CHLORIDE ER 20 MEQ TAB.ER PO SCH ×2 (07:06→09:13)
[2019-05-05] MEDS: IPRATROPIUM-ALBUTEROL 3 ML NEB INHALATION PRN ×2 (08:03→15:56)
[2019-05-05] MEDS: methylPREDNISolone SOD SUCCI 125 MG/2 ML VIAL IV SCH ×2 (11:58→17:51)
[2019-05-05] MEDS ORDERED: HYDROcodone/APAP 5-325MG 1 EACH TAB PO PRN (12:51)
[2019-05-05] MEDS: GABAPENTIN 300 MG CAP PO SCH ×2 (15:40→21:45)
[2019-05-05] MEDS ORDERED: NALOXONE 0.4 MG/ML 1 ML VIAL IV PRN (17:21)
--- NOTE | 2019-05-05 17:24 | P.HPIM ---
History of Present Illness H&P Date: 05/05/19 Chief Complaint: COPD exacerbation Patient is a 53-year-old female with PMH of COPD, PTSD and depression that presents to the ED for 4 days of shortness of breath and chest tightness. Symptoms have progressively been getting worse over the past 4 days, prompting patient to come to the ED. Patient also reports a cough that is wet in nature, unable to bring sputum up. She has tried to use nebulizer treatments at home without any relief. Patient denies any history of intubations. Of note, patient reports smoking 2 packs of cigarettes daily for the past 43 years. Patient reports a frontal headache that has been ongoing for the past 2 days, associated with coughing too much. She reports some lower extremity edema. She denies any nausea or vomiting, fever or chills, chest pain, palpitations, changes in urination or bowel habits. No changes in appetite or weight. She denies any dizziness, numbness/weakness/tingling of the extremities. In the ED, patient was noted to be tachycardic to 118. Vital signs were otherwise stable on 2 L nasal cannula. CBC showed hemoglobin of 10.4. CMP showed a potassium of 3.3, bicarbonate of 32, glucose 121. Urinalysis shows trace leukocyte esterase. Patient is admitted for COPD exacerbation and pulmonology is consulted. Review of Systems Pertinent positives and negatives as discussed in HPI, a complete review of systems was performed and all other systems are negative. Past Medical History Past Medical History: Cancer, COPD, Hyperlipidemia, Pneumonia Additional Past Medical History / Comment(s): COPD stage III, home oxygen at 2L/NC ATC, bronchitis, cervical cancer with surgeries. History of Any Multi-Drug Resistant Organisms: None Reported Past Surgical History: Orthopedic Surgery Additional Past Surgical History / Comment(s): Cervix cancer pt had frozen then 2 resections of lesion then hysterectomy, biltaral thumbs tendon surgery.. Past Anesthesia/Blood Transfusion Reactions: No Reported Reaction Smoking Status: Former smoker - Past Family History Mother Family Medical History: Hypertension Additional Family Medical History / Comment(s): Mother is 81 yrs old. Father Family Medical History: Cancer Additional Family Medical History / Comment(s): Father of lung cancer at the age of 83 yrs old Medications and Allergies Home Medications Medication Instructions Recorded Confirmed Type Aspirin EC [Ecotrin Low Dose] 81 mg PO DAILY 04/06/18 05/05/19 History Albuterol Inhaler [Ventolin Hfa 2 puff INHALATION RT-Q6H PRN 05/05/19 05/05/19 History Inhaler] Atorvastatin [Lipitor] 10 mg PO DAILY 05/05/19 05/05/19 History Calcium Carbonate/Vitamin D3 1 tab PO BID 05/05/19 05/05/19 History [Calcium 600-Vit D3 400 Caplet] Celecoxib [CeleBREX] 200 mg PO DAILY 05/05/19 05/05/19 History Cholecalciferol [Vitamin D3 (25 5,000 unit PO DAILY 05/05/19 05/05/19 History Mcg = 1000 Iu)] Desvenlafaxine Succinate [Pristiq] 100 mg PO DAILY 05/05/19 05/05/19 History Fluticasone/Salmeterol 1 puff INHALATION RT-BID 05/05/19 05/05/19 History [Fluticasone-Salmeterol 232-14] Furosemide [Lasix] 20 mg PO DAILY 05/05/19 05/05/19 History Gabapentin [Neurontin] 300 mg PO TID 05/05/19 05/05/19 History HYDROcodone/APAP 5-325MG [[place] 1 tab PO BID PRN 05/05/19 05/05/19 History 5-325] Ibuprofen [Motrin] 800 mg PO Q8H 05/05/19 05/05/19 History Isosorbide Mononitrate ER [Imdur] 30 mg PO DAILY 05/05/19 05/05/19 History Metoprolol Tartrate [Lopressor] 25 mg PO DAILY 05/05/19 05/05/19 History Multivitamin [Multivitamins Adult 1 tab PO DAILY 05/05/19 05/05/19 History Gummies] Nitroglycerin Sl Tabs [Nitrostat] 0.4 mg SUBLINGUAL Q5M PRN 05/05/19 05/05/19 History Potassium Chloride ER [K-Dur 10] 10 meq PO Q48H 05/05/19 05/05/19 History QUEtiapine FUMARATE [SEROquel] 300 mg PO HS 05/05/19 05/05/19 History Ranitidine HCl [Zantac] 150 mg PO BID 05/05/19 05/05/19 History Allergies Allergy/AdvReac Type Severity Reaction Status Date / Time codeine AdvReac Nausea & Verified 05/05/19 10:24 Vomiting Physical Exam Vitals: Vital Signs Temp Pulse Pulse Resp BP BP Pulse Ox 05/05/19 16:07 104 H 05/05/19 15:56 104 H 05/05/19 15:00 98.5 F 105 H 15 123/78 96 05/05/19 08:19 118 H 05/05/19 08:06 114 H 05/05/19 07:22 99.0 F 102 H 17 110/70 96 05/05/19 06:45 99 20 94/51 99 05/05/19 06:30 96 20 86/54 99 05/05/19 06:00 103 H 22 81/47 97 05/05/19 05:13 125 H 05/05/19 05:03 112 H 05/05/19 05:02 112 H 05/05/19 05:00 109 H 22 88/53 100 05/05/19 04:54 112 H 05/05/19 04:42 22 05/05/19 04:34 99.0 F 117 H 22 103/77 97 Intake and Output 05/05/19 05/05/19 05/05/19 06:59 14:59 22:59 Intake Total 800 Balance 800 Intake: Oral 800 Other: Weight 90.718 kg General: [non toxic], [on 2 L nasal cannula], [appears at stated age] Derm: [warm], [dry] Head: [atraumatic], [normocephalic], [symmetric] Eyes: [EOMI], [no lid lag], [anicteric sclera] Mouth: [no lip lesion], [mucus membranes moist] Cardiovascular: [S1S2 reg], [tachycardia], [positive posterior tibial pulse bilateral], Lungs: [And expiratory wheezing bilateral], [no rhonchi, no rales] , [no accessory muscle use] Abdominal: [soft], [ nontender to palpation], [no guarding], [no appreciable organomegaly] Ext: [no gross muscle atrophy], [no edema], [no contractures] Neuro: [ CN II-XI grossly intact], [no focal neuro deficits except for 4 out of 5 strength in left upper extremity] Psych: [Alert], [oriented], [appropriate affect] Results CBC & Chem 7: 05/05/19 05:00 05/05/19 05:00 Labs: Abnormal Lab Results - Last 24 Hours (Table) 05/05/19 05/05/19 05/05/19 Range/Units 05:00 05:00 05:12 RBC 3.60 L (3.80-5.40) m/uL Hgb 10.4 L (11.4-16.0) gm/dL MCHC 30.2 L (31.0-37.0) g/dL Potassium 3.3 L (3.5-5.1) mmol/L Carbon Dioxide 32 H (22-30) mmol/L Glucose 121 H (74-99) mg/dL Urine Protein Trace H (Negative) Urine Blood Trace H (Negative) Ur Leukocyte Esterase Trace H (Negative) Hyaline Casts 35 H (0-2) /lpf Urine Mucus Few H (None) /hpf Thrombosis Risk Factor Assmnt - Choose All That Apply Any of the Below Risk Factors Present?: Yes Each Factor Represents 1 point: Abnormal pulmonary function (COPD), Age 41-60 years, Obesity (BMI >25), Serious lung disease incl. pneumonia (< 1month) Other Risk Factors: No Other congenital or acquired thrombophilia - If yes, enter type in comment: No Thrombosis Risk Factor Assessment Total Risk Factor Score: 4 Thrombosis Risk Factor Assessment Level: Moderate Risk Assessment and Plan Assessment: Assessment and Plan Acute on chronic COPD exacerbation Hypokalemia Hypertension Anxiety, depression and PTSD Triggered probably from smoking. Chest x-ray is negative. Plans: DuoNeb scheduled and as needed for shortness of breath and wheezing. Start Solu-Medrol 60 mg IV every 6 hours. Start Mucinex. O2 per NC to maintain O2 saturation greater than 92%. Follow pulmonology consultation. Potassium 3.3. Plans: Replaced via protocol. BMP in the morning. BP 123/78. Plans: Restart Imdur and metoprolol. Monitor vitals, adjust medications as necessary. Stable. Plans: Continue Pristiq and Seroquel. DVT prophylaxis: [SCD boots] Discussed with: [Patient] Anticipated discharge: [1-2 days] Anticipated discharge place: [Home] A total of [45] minutes was spent on the care of this complex patient more than 50% of the time was spent in counseling and care coordination. Patient states that she would like to be no code. Her PCP is [facility]. Patient names Ms. Zamorano, her friend decision maker indicates that she can't make decisions for herself.
[2019-05-05] MEDS: BUDESONIDE 0.5 MG/2 ML NEBU INHALATION SCH (20:08)
[2019-05-05] MEDS: IPRATROPIUM-ALBUTEROL 3 ML NEB INHALATION SCH (20:08)
[2019-05-05] MEDS ORDERED: QUEtiapine 100 MG TAB PO SCH (21:00)
[2019-05-05] MEDS: guaiFENesin 600 MG TABLET.ER PO SCH (21:45)
[2019-05-05] MEDS: FAMOTIDINE 20 MG TAB PO SCH (21:45)
[2019-05-05] MEDS ORDERED: ACETAMINOPHEN TAB 325 MG TAB PO PRN (22:01)
[2019-05-06] MEDS: methylPREDNISolone SOD SUCCI 125 MG/2 ML VIAL IV SCH ×3 (00:21→12:33)
--- NOTE | 2019-05-06 00:44 | CONS ---
CONSULTATION Katiuska Jones is a 53-year-old female who presented to the ED at [facility] with increasing shortness of breath, cough about 2-3 days duration. She had no clear fever or chills. Woke at about 4 in the morning with severe shortness of breath associated with wheezing and cough. She was seen in the ER. Oxygen saturation was only 82%. She subsequently was admitted for further evaluation and management and a pulmonary consultation is placed. PAST MEDICAL HISTORY: 1. Positive for asthma, severe persistent. 2. COPD. 3. Cervical cancer status post surgery. 4. Bilateral thumb tendon surgery. FAMILY HISTORY: Positive for coronary artery disease in her mother and lung cancer in the father her are both . SOCIAL HISTORY: Patient is a former smoker. She does not drink alcohol excessively. MEDICATIONS: Prior to admission were Zantac, Seroquel, K-Dur, Nitrostat, multivitamin, adult [place], Lopressor, Imdur, Motrin, [place], Neurontin, Lasix, Advair, cholecalciferol, Celebrex, calcium carbonate, Lipitor, Ecotrin, and Ventolin HFA. REVIEW OF SYSTEMS: Was noncontributory other than what is described in the history of present illness and past medical history history. PHYSICAL EXAMINATION: Blood pressure is 120/78, respiratory rate of 15, pulse 105, temperature 98.5, O2 saturation on 2 L by nasal cannula is 96%. HEENT reveals pupils equal. No jugular venous distention. Chest with decreased breath sounds. Prolonged expiration with expiratory wheeze. CARDIAC: S1, S2. Abdomen is soft. There is a chest x-ray shows no acute processes. Labs reveal white count of 7.7, hemoglobin 10.4 with 0.1 1000 eosinophils. sodium 140, bicarb 32, BUN 10, creatinine 0.88. ASSESSMENT: 1. Severe persistent asthma with acute exacerbation. 2. Chronic obstructive pulmonary disease with exacerbation. 3. Acute respiratory failure due to hypoxemia. 4. Obesity. 5. History of depression. At this point in time, from a pulmonary standpoint, keep her on IV and aerosolized steroids. Keep her on GI and DVT prophylaxis. Add leukotriene receptor antagonist in the hope that we could decrease her systemic steroid dose quickly. Would add inhaled steroids to her regimen and continue bronchodilators. We will follow her closely during the hospital stay and appreciate the opportunity to participate in the care off and on, but she is already. MMLIANA / IJN: [id number] /
[2019-05-06] MEDS: IPRATROPIUM-ALBUTEROL 3 ML NEB INHALATION SCH ×4 (03:46→11:45)
[2019-05-06 07:06] LABS: African American GFR (CKD) >90 (>60 ml/min/1.73 sqM); Anion Gap 5 mmol/L; Blood Urea Nitrogen 13 mg/dL (7-17); Carbon Dioxide 28 mmol/L (22-30); Chloride 109 mmol/L (98-107); Glucose 158 mg/dL (74-99); Potassium 3.9 mmol/L (3.5-5.1); Sodium 142 mmol/L (137-145)
[2019-05-06] MEDS: BUDESONIDE 0.5 MG/2 ML NEBU INHALATION SCH (08:25)
[2019-05-06] MEDS ORDERED: DESVENLAFAXINE SUCCINATE 50 MG TAB.ER.24H PO SCH (09:00)
[2019-05-06] MEDS ORDERED: ISOSORBIDE MONONITRATE ER 30 MG TAB.ER.24H PO SCH (09:00)
[2019-05-06] MEDS ORDERED: ASPIRIN 81 MG PO SCH (09:00)
[2019-05-06] MEDS ORDERED: FUROSEMIDE 20 MG TAB PO SCH (09:00)
[2019-05-06] MEDS ORDERED: ATORVASTATIN 10 MG TAB PO SCH (09:00)
[2019-05-06] MEDS ORDERED: METOPROLOL TARTRATE 25 MG TAB PO SCH (09:00)
[2019-05-06] MEDS ORDERED: CHOLECALCIFEROL 1,000 UNIT TAB PO SCH (09:00)
[2019-05-06 09:17] VITALS: BP 121/62; RESP 15; TEMP 98
[2019-05-06] MEDS: FAMOTIDINE 20 MG TAB PO SCH (09:20)
[2019-05-06] MEDS: GABAPENTIN 300 MG CAP PO SCH (09:21)
[2019-05-06] MEDS: guaiFENesin 600 MG TABLET.ER PO SCH (09:21)
--- NOTE | 2019-05-06 10:46 | P.DS ---
Providers Date of admission: 05/05/19 06:04 Expected date of discharge: 05/06/19 Attending physician: Lucy Eduardo MD Consults: 05/05/19 06:01 Consult Physician Routine Consulting Provider: Rashid Grady Consult Reason/Comments: COPD exacerbation Do you want consulting provider notified?: Yes, Notify in am Primary care physician: [facility] Course: Patient is a 53-year-old female with PMH of COPD, PTSD and depression that presents to the ED for 4 days of shortness of breath and chest tightness. Symptoms have progressively been getting worse over the past 4 days, prompting patient to come to the ED. Patient also reports a cough that is wet in nature, unable to bring sputum up. She has tried to use nebulizer treatments at home without any relief. Patient denies any history of intubations. Of note, patient reports smoking 2 packs of cigarettes daily for the past 43 years. In the ED, patient was noted to be tachycardic to 118. Vital signs were otherwise stable on 2 L nasal cannula. CBC showed hemoglobin of 10.4. CMP showed a potassium of 3.3, bicarbonate of 32, glucose 121. Urinalysis shows trace leukocyte esterase. Patient is admitted for COPD exacerbation and pulmonology is consulted. Patient was placed on DuoNeb scheduled and as needed for shortness of breath and wheezing. She was started on Solu-Medrol IV and Mucinex. She was given O2 per NC to maintain O2 saturation greater than 92%. Patient was noted to have a low potassium of 3.3 which was replaced. Repeat potassium was within normal limits. Pulmonology was consulted and added Pulmicort. Patient was seen and examined this morning. No acute events overnight. Patient reports considerable improvement in her breathing since admission. States that she is 80% back to baseline. Is on 2 L home O2. She denies any chest pain or palpitations. No nausea or vomiting. No fever or chills. General: [non toxic], [on 2 L nasal cannula], [appears at stated age] Derm: [warm], [dry] Head: [atraumatic], [normocephalic], [symmetric] Eyes: [EOMI], [no lid lag], [anicteric sclera] Mouth: [no lip lesion], [mucus membranes moist] Cardiovascular: [S1S2 reg], [no murmur], [positive DP pulse bilateral], Lungs: [End expiratory wheezing bilateral, scattered, improved], [no rhonchi, no rales] , [no accessory muscle use] Abdominal: [soft], [ nontender to palpation], [no guarding], [no appreciable organomegaly] Ext: [no gross muscle atrophy], [no edema], [no contractures] Neuro: [ CN II-XI grossly intact], [no focal neuro deficits except for 4 out of 5 strength in left upper extremity] Psych: [Alert], [oriented], [appropriate affect] Assessment and Plan Acute on chronic respiratory failure on 2 L home O2 secondary to COPD e xacerbation Hypertension Anxiety, depression and PTSD Resolved: Hypokalemia Triggered probably from smoking. Chest x-ray is negative. Plans: DuoNeb scheduled and as needed for shortness of breath and wheezing. Start Solu-Medrol 60 mg IV every 6 hours. Start Mucinex. O2 per NC to maintain O2 saturation greater than 92%. Follow pulmonology consultation. BP 121/62. Plans: Restart Imdur and metoprolol. Monitor vitals, adjust medications as necessary. Stable. Plans: Continue Pristiq and Seroquel. [Patient has shown considerable improvement since admission. Will do a 6 minute walk test to assess for oxygen requirements. If patient is feeling good after her test, will discharge patient home on a prednisone taper to continue current COPD medications. Patient states that she has medications at home she does not need refills. She will need to follow-up with Dr. Grady within 1 week of discharge and her PCP within 1-3 days of discharge. Patient verbalized understanding of the plan.] Pertinent Studies: Chest x-ray Patient Condition at Discharge: Stable Plan - Discharge Summary Discharge Rx Participant: No New Discharge Prescriptions: New Ipratropium-Albuterol Nebulize [Duoneb 0.5 mg-3 mg/3 ml Soln] 3 ml INHALATION RT-Q4H ampul.neb Ipratropium-Albuterol Nebulize [Duoneb 0.5 mg-3 mg/3 ml Soln] 3 ml INHALATION RT-Q4H PRN ampul.neb PRN Reason: Shortness Of Breath Or Wheezing guaiFENesin [Mucinex] 600 mg PO Q12HR #14 tablet.er predniSONE 50 mg PO DAILY #4 tab Continue Aspirin EC [Ecotrin Low Dose] 81 mg PO DAILY Cholecalciferol [Vitamin D3 (25 Mcg = 1000 Iu)] 5,000 unit PO DAILY Ranitidine HCl [Zantac] 150 mg PO BID QUEtiapine FUMARATE [SEROquel] 300 mg PO HS Potassium Chloride ER [K-Dur 10] 10 meq PO Q48H Nitroglycerin Sl Tabs [Nitrostat] 0.4 mg SUBLINGUAL Q5M PRN PRN Reason: Chest Pain Multivitamin [Multivitamins Adult Gummies] 1 tab PO DAILY Metoprolol Tartrate [Lopressor] 25 mg PO DAILY Isosorbide Mononitrate ER [Imdur] 30 mg PO DAILY Ibuprofen [Motrin] 800 mg PO Q8H HYDROcodone/APAP 5-325MG [[place] 5-325] 1 tab PO BID PRN PRN Reason: Pain Gabapentin [Neurontin] 300 mg PO TID Furosemide [Lasix] 20 mg PO DAILY Fluticasone/Salmeterol [Fluticasone-Salmeterol 232-14] 1 puff INHALATION RT- BID Desvenlafaxine Succinate [Pristiq] 100 mg PO DAILY Celecoxib [CeleBREX] 200 mg PO DAILY Calcium Carbonate/Vitamin D3 [Calcium 600-Vit D3 400 Caplet] 1 tab PO BID Atorvastatin [Lipitor] 10 mg PO DAILY Albuterol Inhaler [Ventolin Hfa Inhaler] 2 puff INHALATION RT-Q6H PRN PRN Reason: Shortness Of Breath Discharge Medication List Aspirin EC [Ecotrin Low Dose] 81 mg PO DAILY 04/06/18 [History] Albuterol Inhaler [Ventolin Hfa Inhaler] 2 puff INHALATION RT-Q6H PRN 05/05/19 [History] Atorvastatin [Lipitor] 10 mg PO DAILY 05/05/19 [History] Calcium Carbonate/Vitamin D3 [Calcium 600-Vit D3 400 Caplet] 1 tab PO BID 05/05/19 [History] Celecoxib [CeleBREX] 200 mg PO DAILY 05/05/19 [History] Cholecalciferol [Vitamin D3 (25 Mcg = 1000 Iu)] 5,000 unit PO DAILY 05/05/19 [History] Desvenlafaxine Succinate [Pristiq] 100 mg PO DAILY 05/05/19 [History] Fluticasone/Salmeterol [Fluticasone-Salmeterol 232-14] 1 puff INHALATION RT-BID 05/05/19 [History] Furosemide [Lasix] 20 mg PO DAILY 05/05/19 [History] Gabapentin [Neurontin] 300 mg PO TID 05/05/19 [History] HYDROcodone/APAP 5-325MG [[place] 5-325] 1 tab PO BID PRN 05/05/19 [History] Ibuprofen [Motrin] 800 mg PO Q8H 05/05/19 [History] Isosorbide Mononitrate ER [Imdur] 30 mg PO DAILY 05/05/19 [History] Metoprolol Tartrate [Lopressor] 25 mg PO DAILY 05/05/19 [History] Multivitamin [Multivitamins Adult Gummies] 1 tab PO DAILY 05/05/19 [History] Nitroglycerin Sl Tabs [Nitrostat] 0.4 mg SUBLINGUAL Q5M PRN 05/05/19 [History] Potassium Chloride ER [K-Dur 10] 10 meq PO Q48H 05/05/19 [History] QUEtiapine FUMARATE [SEROquel] 300 mg PO HS 05/05/19 [History] Ranitidine HCl [Zantac] 150 mg PO BID 05/05/19 [History] Ipratropium-Albuterol Nebulize [Duoneb 0.5 mg-3 mg/3 ml Soln] 3 ml INHALATION RT-Q4H ampul.neb 05/06/19 [Rx] Ipratropium-Albuterol Nebulize [Duoneb 0.5 mg-3 mg/3 ml Soln] 3 ml INHALATION RT-Q4H PRN ampul.neb 05/06/19 [Rx] guaiFENesin [Mucinex] 600 mg PO Q12HR #14 tablet.er 05/06/19 [Rx] predniSONE 50 mg PO DAILY #4 tab 05/06/19 [Rx] Follow up Appointment(s)/Referral(s): [facility] [Primary Care Provider] - 1-2 days Rashid Grady MD [STAFF PHYSICIAN] - 1 Week Activity/Diet/Wound Care/Special Instructions: Diet: Low-salt Follow-up PCP within 1-3 days of discharge. Follow-up with pulmonology within 1 week of discharge. Take all medications as advised. Discharge Disposition: HOME SELF-CARE
[2019-05-06 14:08] VITALS: PULSE 108
[2019-05-06 14:12] VITALS: BMI 31.3
--- NOTE | 2019-05-06 15:30 | PN ---
PROGRESS NOTE DATE OF SERVICE: 05/06/2019 Patient is a 53-year-old female who is seen ambulating in the room, is planning to be discharged home early this afternoon. Patient is awake, alert, feeling less short of breath, is hemodynamically stable, afebrile, in no acute distress. PHYSICAL EXAM: VITAL SIGNS: Temp is 98.0, heart rate 88, respiratory rate is 15, blood pressure 121/62, O2 saturation at 98% on 2 L O2 via nasal cannula. HEENT. Head is normocephalic, atraumatic. Neck is supple. Trachea is midline. Lungs with decreased breath sounds with prolonged expiratory phase. No clear rales or wheezes. HEART: S1, S2 heard. Not tachycardic. ABDOMEN: Soft. Bowel sounds are heard. EXTREMITIES: With 1+ edema bilaterally. NEUROLOGIC: Patient is awake and alert. LABS: Sodium is 142, potassium is 3.9, chloride is 109, CO2 is 28, anion gap is 5, BUN is 13, creatinine 0.61, glucose is 158, calcium is 9. IMAGING: No new imaging to review. IMPRESSION: 1. Severe persistent asthma with acute exacerbation. 2. Chronic obstructive pulmonary disease with exacerbation. 3. Acute respiratory failure due to hypoxemia. 4. Obesity. 5. History of depression. PLAN: Continue current medications which have been reviewed. Continue bronchodilators and aerosolized steroids. Continue Singulair. Agree with prednisone with tapering dose. Patient is to follow up in the Pulmonary Clinic later on this week or early next week. MMKIERANL / TEOFILON: [id number] /
== END 2019-05-06 14:19 | disposition home or self-care (01) ==
LOC: EC 04:30 → 4SSUR 06:04 → INTOOBSV 06:04 → UNDODISIN 05-06 14:19
PROVIDERS: ADMIT Internal Medicine; ATTEND Internal Medicine
DX: J44.1 Chronic obstructive pulmonary disease with (acute) exacerbation (principal); J96.21 Acute and chronic respiratory failure with hypoxia; J45.51 Severe persistent asthma with (acute) exacerbation; E66.9 Obesity, unspecified; Z68.31 Body mass index [BMI] 31.0-31.9, adult; E78.5 Hyperlipidemia, unspecified; E87.6 Hypokalemia; F17.210 Nicotine dependence, cigarettes, uncomplicated; F32.9 Major depressive disorder, single episode, unspecified; F43.10 Post-traumatic stress disorder, unspecified; I10 Essential (primary) hypertension; F41.9 Anxiety disorder, unspecified; R60.0 Localized edema; Z85.41 Personal history of malignant neoplasm of cervix uteri; Z90.710 Acquired absence of both cervix and uterus; Z99.81 Dependence on supplemental oxygen; Z87.01 Personal history of pneumonia (recurrent); Z88.5 Allergy status to narcotic agent; Z79.1 Long term (current) use of non-steroidal anti-inflammatories (NSAID); Z79.82 Long term (current) use of aspirin; Z79.891 Long term (current) use of opiate analgesic; Z79.899 Other long term (current) drug therapy; Z80.1 Family history of malignant neoplasm of trachea, bronchus and lung; Z82.49 Family history of ischemic heart disease and other diseases of the circulatory system
CPT/HCPCS: 96376 ×2; 96361; 96374; 99285; 36415; 94640 ×4; 94760; 93005; 80053; 80048; 83605; 85025; 85610; 85730; 81001; 87040; 87502; 71046; G0378 ×2; J2930 ×2

== ENCOUNTER 2019-07-21 04:41 | Observation (INO) | payer OTHER ==
--- NOTE | 2019-07-21 04:53 | ED ---
SOB HPI - General Stated Complaint: JOAAN Time Seen by Provider: 07/21/19 04:44 - History of Present Illness Complaint: shortness of breath, cough -: days(s) Consistency: constant Improves With: nothing Worsens With: nothing Known History Of: COPD Treatments Prior to Arrival: bronchodilator - Related Data Home Medications Medication Instructions Recorded Confirmed Aspirin EC [Ecotrin Low Dose] 81 mg PO DAILY 04/06/18 07/21/19 Albuterol Inhaler [Ventolin Hfa 2 puff INHALATION RT-Q6H PRN 05/05/19 07/21/19 Inhaler] Atorvastatin [Lipitor] 10 mg PO DAILY 05/05/19 07/21/19 Calcium Carbonate/Vitamin D3 1 tab PO BID 05/05/19 07/21/19 [Calcium 600-Vit D3 400 Caplet] Gabapentin [Neurontin] 300 mg PO TID 05/05/19 07/21/19 Isosorbide Mononitrate ER [Imdur] 30 mg PO DAILY 05/05/19 07/21/19 Metoprolol Tartrate [Lopressor] 25 mg PO DAILY 05/05/19 07/21/19 Multivitamin [Multivitamins Adult 1 tab PO DAILY 05/05/19 07/21/19 Gummies] Nitroglycerin Sl Tabs [Nitrostat] 0.4 mg SUBLINGUAL Q5M PRN 05/05/19 07/21/19 Potassium Chloride ER [K-Dur 10] 10 meq PO Q48H 05/05/19 07/21/19 QUEtiapine FUMARATE [SEROquel] 300 mg PO HS 05/05/19 07/21/19 Albuterol Nebulized [Ventolin 2.5 mg INHALATION RT-Q6H PRN 07/21/19 07/21/19 Nebulized] Beclomethasone Dip 80 Mcg/Puff 2 puff INHALATION RT-BID 07/21/19 07/21/19 [Qvar 80 mcg] Montelukast Sodium [Singulair] 10 mg PO HS 07/21/19 07/21/19 Pantoprazole Sodium [Protonix] 40 mg PO DAILY 07/21/19 07/21/19 Previous Rx's Medication Instructions Recorded Azithromycin [Zithromax Tri-Jai] 500 mg PO DAILY 5 Days #5 tab 07/23/19 guaiFENesin [Mucinex] 600 mg PO Q12HR tablet.er 07/23/19 predniSONE 0 mg PO DIRECTED #40 tab 07/23/19 Allergies Allergy/AdvReac Type Severity Reaction Status Date / Time codeine AdvReac Nausea & Verified 07/21/19 07:24 Vomiting Review of Systems ROS Statement: Those systems with pertinent positive or pertinent negative responses have been documented in the HPI. ROS Other: All systems not noted in ROS Statement are negative. Constitutional: Reports: weakness. Denies: fever, chills Respiratory: Reports: cough, dyspnea, wheezes. Denies: hemoptysis Cardiovascular: Denies: chest pain, palpitations, orthopnea, edema, syncope Gastrointestinal: Denies: abdominal pain, vomiting, diarrhea Genitourinary: Denies: dysuria, hematuria Musculoskeletal: Reports: myalgia. Denies: back pain Skin: Denies: rash Neurological: Denies: headache, weakness, numbness Past Medical History Past Medical History: Cancer, COPD, Hyperlipidemia, Pneumonia Additional Past Medical History / Comment(s): COPD stage III, home oxygen at 2L/NC ATC, bronchitis, cervical cancer with surgeries. History of Any Multi-Drug Resistant Organisms: None Reported Past Surgical History: Orthopedic Surgery Additional Past Surgical History / Comment(s): Cervix cancer pt had frozen then 2 resections of lesion then hysterectomy, biltaral thumbs tendon surgery.. Past Anesthesia/Blood Transfusion Reactions: No Reported Reaction Smoking Status: Former smoker - Past Family History Mother Family Medical History: Hypertension Additional Family Medical History / Comment(s): Mother is 81 yrs old. Father Family Medical History: Cancer Additional Family Medical History / Comment(s): Father of lung cancer at the age of 83 yrs old Brother(s) Additional Family Medical History / Comment(s): Patient has 4 brothers and 2 brothers were murdered otherwise she does not know medical history. Patient has 11 sisters and does not know medical history. Patient has 4 daughters and 1 son with no major medical problems. General Exam General appearance: alert, in no apparent distress Head exam: Present: atraumatic, normocephalic Eye exam: Present: normal appearance. Absent: scleral icterus, conjunctival injection ENT exam: Present: normal oropharynx Respiratory exam: Present: respiratory distress, wheezes, rhonchi. Absent: rales, accessory muscle use, decreased breath sounds, prolonged expiratory Cardiovascular Exam: Present: normal rhythm, tachycardia, systolic murmur. Absent: diastolic murmur, rubs, gallop GI/Abdominal exam: Present: soft. Absent: distended, tenderness, guarding, rebound, rigid Extremities exam: Present: normal inspection, normal capillary refill. Absent: pedal edema, calf tenderness Back exam: Present: normal inspection. Absent: CVA tenderness (R), CVA tenderness (L) Neurological exam: Present: alert Skin exam: Present: warm, dry, intact, normal color. Absent: rash Course Vital Signs 07/21/19 07/21/19 07/21/19 04:58 05:03 05:18 Temperature 102.5 F H 102.4 F H 102.1 F H Pulse Rate 155 H 140 H 135 H Respiratory 24 26 H 22 Rate Blood Pressure 108/79 98/65 117/96 O2 Sat by Pulse 97 96 95 Oximetry 07/21/19 07/21/19 07/21/19 05:27 05:37 06:00 Temperature 101.5 F H Pulse Rate 130 H 130 H 130 H Respiratory 30 H Rate Blood Pressure 92/67 O2 Sat by Pulse 95 Oximetry 07/21/19 07/21/19 07/21/19 06:45 08:11 08:20 Temperature 100.3 F H Pulse Rate 122 H 122 H 120 H Respiratory 24 Rate Blood Pressure 109/67 O2 Sat by Pulse 97 Oximetry Medical Decision Making - Lab Data Result diagrams: 07/23/19 09:08 07/23/19 09:08 Lab Results 07/21/19 07/21/19 07/21/19 Range/Units 04:50 04:50 04:50 WBC 24.3 H (3.8-10.6) k/uL RBC 3.83 (3.80-5.40) m/uL Hgb 12.6 (11.4-16.0) gm/dL Hct 37.4 (34.0-46.0) % MCV 97.6 (80.0-100.0) fL MCH 32.8 (25.0-35.0) pg MCHC 33.6 (31.0-37.0) g/dL RDW 14.1 (11.5-15.5) % Plt Count 369 (150-450) k/uL Neutrophils % 78 % Lymphocytes % 17 % Monocytes % 4 % Eosinophils % 1 % Basophils % 0 % Neutrophils # 18.9 H (1.3-7.7) k/uL Lymphocytes # 4.1 (1.0-4.8) k/uL Monocytes # 1.0 (0-1.0) k/uL Eosinophils # 0.1 (0-0.7) k/uL Basophils # 0.1 (0-0.2) k/uL PT 10.2 (9.0-12.0) sec INR 0.9 (<1.2) APTT 23.3 (22.0-30.0) sec D-Dimer (<0.60) mg/L FEU Sodium 135 L (137-145) mmol/L Potassium 4.8 (3.5-5.1) mmol/L Chloride 101 (98-107) mmol/L Carbon Dioxide 23 (22-30) mmol/L Anion Gap 11 mmol/L BUN 17 (7-17) mg/dL Creatinine 1.21 H (0.52-1.04) mg/dL Est GFR (CKD-EPI)AfAm 59 (>60 ml/min/1.73 sqM) Est GFR (CKD-EPI)NonAf 51 (>60 ml/min/1.73 sqM) Glucose 117 H (74-99) mg/dL Plasma Lactic Acid Pedro (0.7-2.0) mmol/L Calcium 9.6 (8.4-10.2) mg/dL Total Bilirubin 0.7 (0.2-1.3) mg/dL AST 94 H (14-36) U/L ALT 66 H (9-52) U/L Alkaline Phosphatase 133 H (38-126) U/L Troponin I (0.000-0.034) ng/mL NT-Pro-B Natriuret Pep pg/mL Total Protein 7.3 (6.3-8.2) g/dL Albumin 4.3 (3.5-5.0) g/dL Influenza Type A RNA (Not Detectd) Influenza Type B (PCR) (Not Detectd) 07/21/19 07/21/19 07/21/19 Range/Units 04:50 04:50 04:50 WBC (3.8-10.6) k/uL RBC (3.80-5.40) m/uL Hgb (11.4-16.0) gm/dL Hct (34.0-46.0) % MCV (80.0-100.0) fL MCH (25.0-35.0) pg MCHC (31.0-37.0) g/dL RDW (11.5-15.5) % Plt Count (150-450) k/uL Neutrophils % % Lymphocytes % % Monocytes % % Eosinophils % % Basophils % % Neutrophils # (1.3-7.7) k/uL Lymphocytes # (1.0-4.8) k/uL Monocytes # (0-1.0) k/uL Eosinophils # (0-0.7) k/uL Basophils # (0-0.2) k/uL PT (9.0-12.0) sec INR (<1.2) APTT (22.0-30.0) sec D-Dimer (<0.60) mg/L FEU Sodium (137-145) mmol/L Potassium (3.5-5.1) mmol/L Chloride (98-107) mmol/L Carbon Dioxide (22-30) mmol/L Anion Gap mmol/L BUN (7-17) mg/dL Creatinine (0.52-1.04) mg/dL Est GFR (CKD-EPI)AfAm (>60 ml/min/1.73 sqM) Est GFR (CKD-EPI)NonAf (>60 ml/min/1.73 sqM) Glucose (74-99) mg/dL Plasma Lactic Acid Pedro (0.7-2.0) mmol/L Calcium (8.4-10.2) mg/dL Total Bilirubin (0.2-1.3) mg/dL AST (14-36) U/L ALT (9-52) U/L Alkaline Phosphatase (38-126) U/L Troponin I <0.012 (0.000-0.034) ng/mL NT-Pro-B Natriuret Pep 147 pg/mL Total Protein (6.3-8.2) g/dL Albumin (3.5-5.0) g/dL Influenza Type A RNA Not Detected (Not Detectd) Influenza Type B (PCR) Not Detected (Not Detectd) 07/21/19 07/21/19 Range/Units 04:50 04:50 WBC (3.8-10.6) k/uL RBC (3.80-5.40) m/uL Hgb (11.4-16.0) gm/dL Hct (34.0-46.0) % MCV (80.0-100.0) fL MCH (25.0-35.0) pg MCHC (31.0-37.0) g/dL RDW (11.5-15.5) % Plt Count (150-450) k/uL Neutrophils % % Lymphocytes % % Monocytes % % Eosinophils % % Basophils % % Neutrophils # (1.3-7.7) k/uL Lymphocytes # (1.0-4.8) k/uL Monocytes # (0-1.0) k/uL Eosinophils # (0-0.7) k/uL Basophils # (0-0.2) k/uL PT (9.0-12.0) sec INR (<1.2) APTT (22.0-30.0) sec D-Dimer 0.64 H (<0.60) mg/L FEU Sodium (137-145) mmol/L Potassium (3.5-5.1) mmol/L Chloride (98-107) mmol/L Carbon Dioxide (22-30) mmol/L Anion Gap mmol/L BUN (7-17) mg/dL Creatinine (0.52-1.04) mg/dL Est GFR (CKD-EPI)AfAm (>60 ml/min/1.73 sqM) Est GFR (CKD-EPI)NonAf (>60 ml/min/1.73 sqM) Glucose (74-99) mg/dL Plasma Lactic Acid Pedro 1.9 (0.7-2.0) mmol/L Calcium (8.4-10.2) mg/dL Total Bilirubin (0.2-1.3) mg/dL AST (14-36) U/L ALT (9-52) U/L Alkaline Phosphatase (38-126) U/L Troponin I (0.000-0.034) ng/mL NT-Pro-B Natriuret Pep pg/mL Total Protein (6.3-8.2) g/dL Albumin (3.5-5.0) g/dL Influenza Type A RNA (Not Detectd) Influenza Type B (PCR) (Not Detectd) - EKG Data -: EKG Interpreted by Me EKG shows normal: sinus rhythm, axis (Normal), intervals (Normal), QRS complexes (Normal), ST-T waves (Normal) Rate: tachycardia (Rate 134 bpm) Interpretation: other (Old septal infarct.) Disposition Clinical Impression: Acute exacerbation of chronic obstructive pulmonary disease, Pneumonia Disposition: ADMITTED IP TO THIS HOSP Condition: Good
[2019-07-21 05:03] LABS: Basophils # (A) 0.1 k/uL (0-0.2); Basophils % (A) 0 %; Eosinophils # (A) 0.1 k/uL (0-0.7); Eosinophils % (A) 1 %; HCT 37.4 % (34.0-46.0); HGB 12.6 gm/dL (11.4-16.0); Lymphocytes # (A) 4.1 k/uL (1.0-4.8); Lymphocytes % (A) 17 %; MCH 32.8 pg (25.0-35.0); MCHC 33.6 g/dL (31.0-37.0); MCV 97.6 fL (80.0-100.0); Mean Platelet Volume 6.1; Monocytes % (A) 4 %; Neutrophils # (A) 18.9 k/uL (1.3-7.7); Neutrophils % (A) 78 %; Platelet Count 369 k/uL (150-450); RBC 3.83 m/uL (3.80-5.40); RDW 14.1 % (11.5-15.5); WBC 24.3 k/uL (3.8-10.6)
--- NOTE | 2019-07-21 05:10 | XR ---
EXAMINATION TYPE: XR chest 1V portable DATE OF EXAM: 07/21/2019 COMPARISON: 05/05/2019 HISTORY: Short of breath TECHNIQUE: Single frontal view of the chest is obtained. FINDINGS: Heart and mediastinum are normal. Lungs are clear. Diaphragm is normal. Bony thorax appear s intact. There are chest leads. IMPRESSION: No active cardiopulmonary disease. Normal heart. No change.
[2019-07-21 05:12] LABS: INR 0.9 (<1.2); Partial Thromboplastin Time 23.3 sec (22.0-30.0); Prothrombin Time 10.2 sec (9.0-12.0)
[2019-07-21] MEDS ORDERED: ACETAMINOPHEN TAB 325 MG TAB PO STA (05:12)
[2019-07-21] MEDS ORDERED: ALBUTEROL NEBULIZED 2.5 MG/3 ML INHALATION STA (05:12)
[2019-07-21 05:23] LABS: Albumin 4.3 g/dL (3.5-5.0); Calcium 9.6 mg/dL (8.4-10.2); Potassium 4.8 mmol/L (3.5-5.1); Total Bilirubin 0.7 mg/dL (0.2-1.3); Total Protein 7.3 g/dL (6.3-8.2)
[2019-07-21] MEDS ORDERED: predniSONE 20 MG TAB PO STA (06:12)
[2019-07-21] MEDS ORDERED: IPRATROPIUM-ALBUTEROL 3 ML NEB INHALATION STA (06:12)
[2019-07-21] MEDS ORDERED: ALBUTEROL NEBULIZED 2.5 MG/3 ML INHALATION PRN (06:17)
[2019-07-21] MEDS ORDERED: HYDROcodone/APAP 5-325MG 1 EACH TAB PO PRN (06:19)
[2019-07-21] MEDS ORDERED: NITROGLYCERIN SL TABS 0.4 MG TAB SUBLINGUAL PRN (06:19)
[2019-07-21] MEDS ORDERED: SYMBICORT 160-4.5 MCG INHALER INHALATION SCH (08:00)
[2019-07-21] MEDS ORDERED: predniSONE 20 MG TAB PO SCH (09:00)
--- NOTE | 2019-07-21 09:07 | CT ---
EXAMINATION TYPE: CT chest angio for PE DATE OF EXAM: 07/21/2019 COMPARISON: CT chest March 03, 2015 HISTORY: COPD Exacerbation CT DLP: 375.2 mGycm. Automated Exposure Control for Dose Reduction was Utilized. CONTRAST: CTA scan of the thorax is performed without and with IV Contrast, patient injected with 100 ml mL of Isovue 370, pulmonary embolism protocol. MIP Images are created on CT scanner and reviewed. FINDINGS: LUNGS: There is background mild to moderate underlying emphysematous change. Mild/moderate scattered parenchymal fibrosis in the bilateral lower lungs extending to the periphery is identified. Some more focal areas of nodular consolidation in the lingula axial image 115 and in the anterior right lower lobe axial image 112 are present. No pleural effusion or pneumothorax. MEDIASTINUM: There is markedly suboptimal study with more dense contrast in aorta and left heart sys tem. There is no large saddle pulmonary embolism, smaller lobar, segmental and subsegmental PE canno t be excluded. There are no greater than 1 cm hilar or mediastinal lymph nodes. Small to tiny pericar dial effusion is larger versus prior. 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 Normal variant. Coronary artery calcification is redemonstrated. Hear t size normal. OTHER: No additional significant abnormality is seen. IMPRESSION: 1. Markedly suboptimal essentially nondiagnostic for pulmonary embolism. 2. Chronic emphysematous and basilar fibrotic changes with areas of acute infiltrate suspected in the bilateral lower lungs. Correlate clinically.
[2019-07-21] MEDS: IBUPROFEN 800 MG TAB PO SCH ×2 (11:06→13:52)
[2019-07-21] MEDS: CHOLECALCIFEROL 1,000 UNIT TAB PO SCH (11:06)
[2019-07-21] MEDS: FUROSEMIDE 20 MG TAB PO SCH (11:07)
[2019-07-21] MEDS: MULTIVITAMINS, THERA 1 EACH TAB PO SCH (11:07)
[2019-07-21] MEDS: GABAPENTIN 300 MG CAP PO SCH ×3 (11:07→22:24)
[2019-07-21] MEDS: CALCIUM CARB-VIT D 500MG-200UN 1 EACH TAB PO SCH ×2 (11:07→20:09)
[2019-07-21] MEDS: FAMOTIDINE 20 MG TAB PO SCH ×2 (11:07→20:09)
[2019-07-21] MEDS: ATORVASTATIN 10 MG TAB PO SCH (11:07)
[2019-07-21] MEDS: ISOSORBIDE MONONITRATE ER 30 MG TAB.ER.24H PO SCH (11:08)
[2019-07-21] MEDS: METOPROLOL TARTRATE 25 MG TAB PO SCH (11:08)
[2019-07-21] MEDS: ASPIRIN 81 MG PO SCH (11:08)
[2019-07-21] MEDS: guaiFENesin 600 MG TABLET.ER PO SCH ×2 (11:08→20:09)
[2019-07-21] MEDS: DESVENLAFAXINE SUCCINATE 50 MG TAB.ER.24H PO SCH (11:09)
[2019-07-21] MEDS: IPRATROPIUM-ALBUTEROL 3 ML NEB INHALATION SCH ×4 (11:52→19:22)
[2019-07-21 12:05] LABS: Glucose,Whole Blood 165 mg/dL (75-99)
--- NOTE | 2019-07-21 12:39 | US ---
EXAMINATION TYPE: US venous doppler duplex LE BI DATE OF EXAM: 07/21/2019 12:15 PM COMPARISON: NONE CLINICAL HISTORY: JOANA, CTA not conclusive. COPD, leg cramping bilaterally, no h/o dvt SIDE PERFORMED: Bilateral TECHNIQUE: The lower extremity deep venous system is examined utilizing real time linear array sonog jorge with graded compression, doppler sonography and color-flow sonography. VESSELS IMAGED: External Iliac Vein (EIV) Common Femoral Vein Deep Femoral Vein Greater Saphenous Vein * Femoral Vein Popliteal Vein Small Saphenous Vein * Proximal Calf Veins (* superficial vessels) Right Leg: Appears negative for DVT Left Leg: Appears negative for DVT IMPRESSION: 1. No diagnostic evidence of DVT as visualized
--- NOTE | 2019-07-21 13:24 | NM ---
EXAMINATION TYPE: NM pul vent and perfuse DATE OF EXAM: 07/21/2019 COMPARISON: CTA chest July 21, 2019. HISTORY: Difficulty in breathing and elevated d-dimer TECHNIQUE: Utilizing inhalation of 66.8 mCi Tc 99m DTPA aerosol and intravenous injection of 5.1 mCi of Tc 99m MAA, ventilation and perfusion images are acquired post injection in multiple projections. FINDINGS: There are scattered small to moderate-sized matching defects bilaterally including moderate to large sized matching defects in the bilateral lower lungs. There is no evidence of mismatched defects. IMPRESSION: Intermediate or indeterminate probability for pulmonary embolism.
--- NOTE | 2019-07-21 13:40 | P.HPIM ---
History of Present Illness H&P Date: 07/21/19 Chief Complaint: Difficulty breathing This is a 54-year-old female patient at the [facility]'s clinic with past medical history of COPD, hyperlipidemia, chronic hypoxic respiratory failure on home O2 at 2 L nasal cannula, cervical cancer status post surgical intervention and hysterectomy, recurrent depression, history of tobacco use. Patient gives history of having shortness of breath with cough and tightness with wheezing that been going on for about 2 days. She also had chest pain in the middle of her chest to her back with deep inspiration. Patient came into [facility] emergency center for evaluation. She was found to have a temperature of 102.5, tachycardia 1 55 bpm, blood pressure 108/79, leukocytosis of 24.3. She also had a blood sugar 117, creatinine 1.61. AST 94, ALT 66, alkaline phosphatase 133, troponin negative, lactic acid 1.9. EKG was a sinus rhythm. Chest x-ray showed no acute cardiopulmonary disease. CT angiogram of the chest revealed markedly suboptimal nondiagnostic for pulmonary embolism. Chronic emphysematous and basilar fibrotic changes with areas of acute infiltrate suspected in the bilateral lower lungs. Patient was [facility] floor with consult in place for Dr. DONNIE Grady. Subsequently, patient underwent VQ scan which was intermediate or indeterminate probability for pulmonary embolism. Ultrasound bilateral lower extremities negative for DVT. Review of Systems Constitutional: Reports chills, Reports fatigue, Reports fever, Reports weakness Eyes: denies blurred vision, denies pain Ears, nose, mouth and throat: Denies dysphagia, Denies headache, Denies nasal congestion, Denies nasal discharge, Denies sore throat, Denies vertigo Cardiovascular: Reports chest pain, Reports dyspnea on exertion, Reports shortness of breath, Denies edema, Denies leg edema, Denies lightheadedness, Denies palpitations, Denies syncope Respiratory: Reports cough, Reports cough with sputum, Reports dyspnea, Reports home oxygen, Reports respiratory infections, Reports wheezing, Denies excessive sputum, Denies hemoptysis Gastrointestinal: Reports loss of appetite, Denies abdominal pain, Denies diarrhea, Denies nausea, Denies vomiting Genitourinary: Denies dysuria, Denies hematuria, Denies urgency, Denies urinary frequency Musculoskeletal: Denies frequent falls, Denies gait dysfunction, Denies muscle weakness, Denies myalgias Integumentary: Denies pruritus, Denies rash, Denies wounds Neurological: Denies change in mentation, Denies change in speech, Denies numbness, Denies seizures, Denies weakness Psychiatric: Denies anxiety, Denies depression Endocrine: Denies fatigue, Denies weight change Past Medical History Past Medical History: Cancer, COPD, Hyperlipidemia, Pneumonia Additional Past Medical History / Comment(s): Chronic hypoxic respiratory failure with home oxygen at 2L/NC ATC, bronchitis, cervical cancer with surgeries, elevated blood sugar with steroid use. History of Any Multi-Drug Resistant Organisms: None Reported Past Surgical History: Hysterectomy, Orthopedic Surgery Additional Past Surgical History / Comment(s): Cervix cancer pt had frozen then 2 resections of lesion then hysterectomy, biltaral thumbs tendon surgery, recent colonoscopy with polyps removed at [facility].. Past Anesthesia/Blood Transfusion Reactions: No Reported Reaction Smoking Status: Former smoker Additional Past Alcohol Use History / Comment(s): Patient was smoker of 2 and half packs per day for 43 years and quit 1 year ago. She denies any marijuana, illicit drug use or alcohol use. The patient has nebulizer and home O2. She does not have CPAP. - Past Family History Mother Family Medical History: Coronary Artery Disease (CAD), Hypertension Additional Family Medical History / Comment(s): Mother is 81 yrs old. Father Family Medical History: Cancer Additional Family Medical History / Comment(s): Father of lung cancer at the age of 83 yrs old Brother(s) Additional Family Medical History / Comment(s): Patient has 4 brothers and 2 brothers were murdered otherwise she does not know medical history. Patient has 11 sisters and does not know medical history. Patient has 4 daughters and 1 son with no major medical problems. Medications and Allergies Home Medications Medication Instructions Recorded Confirmed Type Aspirin EC [Ecotrin Low Dose] 81 mg PO DAILY 04/06/18 07/21/19 History Albuterol Inhaler [Ventolin Hfa 2 puff INHALATION RT-Q6H PRN 05/05/19 07/21/19 History Inhaler] Atorvastatin [Lipitor] 10 mg PO DAILY 05/05/19 07/21/19 History Calcium Carbonate/Vitamin D3 1 tab PO BID 05/05/19 07/21/19 History [Calcium 600-Vit D3 400 Caplet] Gabapentin [Neurontin] 300 mg PO TID 05/05/19 07/21/19 History Isosorbide Mononitrate ER [Imdur] 30 mg PO DAILY 05/05/19 07/21/19 History Metoprolol Tartrate [Lopressor] 25 mg PO DAILY 05/05/19 07/21/19 History Multivitamin [Multivitamins Adult 1 tab PO DAILY 05/05/19 07/21/19 History Gummies] Nitroglycerin Sl Tabs [Nitrostat] 0.4 mg SUBLINGUAL Q5M PRN 05/05/19 07/21/19 History Potassium Chloride ER [K-Dur 10] 10 meq PO Q48H 05/05/19 07/21/19 History QUEtiapine FUMARATE [SEROquel] 300 mg PO HS 05/05/19 07/21/19 History Albuterol Nebulized [Ventolin 2.5 mg INHALATION RT-Q6H PRN 07/21/19 07/21/19 History Nebulized] Beclomethasone Dip 80 Mcg/Puff 2 puff INHALATION RT-BID 07/21/19 07/21/19 History [Qvar 80 mcg] Montelukast Sodium [Singulair] 10 mg PO HS 07/21/19 07/21/19 History Pantoprazole Sodium [Protonix] 40 mg PO DAILY 07/21/19 07/21/19 History Allergies Allergy/AdvReac Type Severity Reaction Status Date / Time codeine AdvReac Nausea & Verified 07/21/19 07:24 Vomiting Physical Exam Vitals: Vital Signs Temp Pulse Resp BP Pulse Ox 07/21/19 08:20 120 H 07/21/19 08:11 122 H 07/21/19 06:45 100.3 F H 122 H 24 109/67 97 07/21/19 06:00 101.5 F H 130 H 30 H 92/67 95 07/21/19 05:37 130 H 07/21/19 05:27 130 H 07/21/19 05:18 102.1 F H 135 H 22 117/96 95 07/21/19 05:03 102.4 F H 140 H 26 H 98/65 96 07/21/19 04:58 102.5 F H 155 H 24 108/79 97 Intake and Output 07/20/19 07/21/19 07/21/19 22:59 06:59 14:59 Other: Weight 136.078 kg 136.078 kg Gen: This is a morbidly obese 54-year-old female. Patient is resting with oxygen in place. Mild accessory muscle usage. Dyspnea with sentences.] HEENT: Head is atraumatic, normocephalic. Pupils equal, round. Sclerae is anicteric. NECK: Supple. No JVD. No lymphadenopathy. No thyromegaly. LUNGS: Bilateral scattered wheezes and rhonchi with mild accessory muscle usage and intercostal retractions. HEART: Regular rate and rhythm. no murmur. ABDOMEN: Soft. Bowel sounds are present. No masses. No tenderness. EXTREMITIES: No pedal edema. No calf tenderness. Dorsalis pedis +2 bilaterally. NEUROLOGICAL: Patient is awake, alert and oriented x3. Cranial nerves 2 through 12 are grossly intact. Results CBC & Chem 7: 07/21/19 04:50 07/21/19 04:50 Labs: Abnormal Lab Results - Last 24 Hours (Table) 07/21/19 07/21/19 07/21/19 Range/Units 04:50 04:50 04:50 WBC 24.3 H (3.8-10.6) k/uL Neutrophils # 18.9 H (1.3-7.7) k/uL D-Dimer 0.64 H (<0.60) mg/L FEU Sodium 135 L (137-145) mmol/L Creatinine 1.21 H (0.52-1.04) mg/dL Glucose 117 H (74-99) mg/dL AST 94 H (14-36) U/L ALT 66 H (9-52) U/L Alkaline Phosphatase 133 H (38-126) U/L Thrombosis Risk Factor Assmnt - DVT/VTE Prophylaxis DVT/VTE Prophylaxis: Pharmacologic Prophylaxis ordered - Choose All That Apply Any of the Below Risk Factors Present?: Yes Each Factor Represents 1 point: Abnormal pulmonary function (COPD), Age 41-60 years, Obesity (BMI >25) Other Risk Factors: Yes Each Risk Factor Represents 2 Points: Malignancy Other congenital or acquired thrombophilia - If yes, enter type in comment: No Thrombosis Risk Factor Assessment Total Risk Factor Score: 5 Thrombosis Risk Factor Assessment Level: High Risk Assessment and Plan Plan: 1. Acute on chronic hypoxic respiratory failure secondary to COPD exacerbation and bilateral pneumonia. Continue DuoNeb treatments every 4 hours and Ventolin 4 times daily as needed, Pulmicort 1 mg twice daily, Solu-Medrol 60 mg IV every 6 hours, Mucinex, Rocephin and azithromycin, consult with pulmonary medicine. 2. Sepsis with lactic acidosis secondary to COPD exacerbation and pneumonia. Continue as in #1. 3. Chest pain secondary to costochondritis. 4. Elevated liver function tests most likely secondary to hypoxia, monitor. 5. Hyperlipidemia. Continue atorvastatin 10 mg daily. 6. Gastroesophageal reflux disease. Continue Pepcid 20 mg twice daily. 7. Recurrent depression. Continue Seroquel 300 mg at bedtime. 8. Coronary artery disease. Continue Imdur 30 mg daily, aspirin 81 mg daily, Lipitor. 9. DVT prophylaxis. Heparin subcu. 10. History of tobacco use and dependence, quit 1 year ago. Patient will be admitted to the hospital for a minimum of 2 night stay. Discharge plan: Most likely return home. Impression and plan of care have been directed as dictated by the signing arden Alicea nurse practitioner acting as scribe for signing physician.
[2019-07-21] MEDS: SODIUM CHLORIDE 0.9% 1,000 ML IV SCH (13:42)
[2019-07-21] MEDS: methylPREDNISolone SOD SUCCI 125 MG/2 ML VIAL IV SCH ×3 (13:43→23:52)
[2019-07-21] MEDS: INSULIN ASPART (NovoLOG) 100 UNIT/ML VIAL SQ SCH ×3 (13:44→20:11)
[2019-07-21] MEDS: AZITHROMYCIN 500 MG in SODIUM CHLORIDE 0.9% 250 ML IVPB SCH (15:16)
[2019-07-21 16:53] LABS: Glucose,Whole Blood 185 mg/dL (75-99)
[2019-07-21] MEDS: BUDESONIDE 1 MG/2 ML NEBU INHALATION SCH (19:22)
[2019-07-21 19:56] LABS: Glucose,Whole Blood 204 mg/dL (75-99)
[2019-07-21] MEDS: HEPARIN SODIUM,PORCINE 5,000 UNIT/ML 1 ML VIAL SQ SCH (20:10)
[2019-07-21] MEDS: QUEtiapine 100 MG TAB PO SCH (22:24)
--- NOTE | 2019-07-21 22:47 | CONS ---
CONSULTATION Katiuska Jones is a 54-year-old female who presented to the ED with increasing shortness of breath of about 2 days' duration. She had been on steroids as an outpatient and was on tapering doses when she started to worsen. She had fever, chills and was found to have a fever up to 102 degrees Fahrenheit. She was subsequently admitted for further evaluation and management. PAST MEDICAL HISTORY: Past medical history is positive for severe persistent asthma, COPD, cervical cancer, status post surgery, bilateral arm tendon surgery. FAMILY HISTORY: Positive for coronary artery disease in her mother, lung cancer in her father, who are both . SOCIAL HISTORY: Patient is a former smoker. She does not drink alcohol excessively. MEDICATIONS: Her medications prior to admission were: 1. Pantoprazole. 2. Singulair. 3. Qvar. 4. Albuterol. 5. Seroquel. 6. K-Dur. 7. Nitrostat. 8. Multivitamin. 9. Lopressor. 10.Imdur. 11.Neurontin. 12.Calcium carbonate. 13.Lipitor. 14.Ecotrin. 15.Albuterol inhaler. REVIEW OF SYSTEMS: Noncontributory. PHYSICAL EXAMINATION: The patient was lying in bed. Her initial vitals revealed a temperature of 102.5 degrees Fahrenheit, pulse rate of 155, respiratory rate of 26, blood pressure 108/79. Oxygen saturation on 8 L by aerosol mask was 97%. HEENT reveals pupils that are equal. There is redundant tissue in the posterior pharynx. Chest reveals decreased breath sounds with prolonged exhalation, bilateral expiratory wheezing. Cardiovascular system reveals an S1, S2. Abdomen is soft. There is 1+ pedal edema. IMAGING: Chest x-ray and CT scan of the chest were reviewed. CT scan shows some lower zone fibrotic changes; no clear infiltrate; no large pulmonary emboli. V/Q scan was indeterminate. LABS: White count of 24.3, hemoglobin of 12.6, 18,900 neutrophils. Sodium 135, potassium 4.8, chloride 101, bicarb 23. IMPRESSION AT THIS TIME: 1. Severe asthma with acute exacerbation. 2. Secondary bacterial infection. 3. Possible early sepsis. 4. Obesity. At this point in time from a pulmonary standpoint, keep her on IV and aerosolized steroids, bronchodilators. Check cultures on her. Continue her on Rocephin and azithromycin. We will follow her closely and appreciate the opportunity to participate in her care. MMODL / IJN: [id number] /
[2019-07-22] MEDS: IPRATROPIUM-ALBUTEROL 3 ML NEB INHALATION SCH ×6 (00:07→20:35)
[2019-07-22] MEDS: IBUPROFEN 800 MG TAB PO SCH ×4 (01:37→22:18)
[2019-07-22] MEDS: methylPREDNISolone SOD SUCCI 125 MG/2 ML VIAL IV SCH ×2 (05:48→12:45)
[2019-07-22 06:53] LABS: Glucose,Whole Blood 157 mg/dL (75-99)
[2019-07-22] MEDS: BUDESONIDE 1 MG/2 ML NEBU INHALATION SCH ×2 (07:17→20:35)
[2019-07-22] MEDS: SODIUM CHLORIDE 0.9% 1,000 ML IV SCH (07:38)
[2019-07-22] MEDS: CALCIUM CARB-VIT D 500MG-200UN 1 EACH TAB PO SCH ×2 (07:41→22:15)
[2019-07-22] MEDS: guaiFENesin 600 MG TABLET.ER PO SCH ×2 (07:42→22:15)
[2019-07-22] MEDS: ATORVASTATIN 10 MG TAB PO SCH (07:42)
[2019-07-22] MEDS: FAMOTIDINE 20 MG TAB PO SCH ×2 (07:42→22:15)
[2019-07-22] MEDS: CHOLECALCIFEROL 1,000 UNIT TAB PO SCH (07:42)
[2019-07-22] MEDS: FUROSEMIDE 20 MG TAB PO SCH (07:42)
[2019-07-22] MEDS: ISOSORBIDE MONONITRATE ER 30 MG TAB.ER.24H PO SCH (07:42)
[2019-07-22] MEDS: DESVENLAFAXINE SUCCINATE 50 MG TAB.ER.24H PO SCH (07:42)
[2019-07-22] MEDS: GABAPENTIN 300 MG CAP PO SCH ×3 (07:42→22:16)
[2019-07-22] MEDS: ASPIRIN 81 MG PO SCH (07:43)
[2019-07-22] MEDS: MULTIVITAMINS, THERA 1 EACH TAB PO SCH (07:43)
[2019-07-22] MEDS: METOPROLOL TARTRATE 25 MG TAB PO SCH (07:43)
[2019-07-22] MEDS: HEPARIN SODIUM,PORCINE 5,000 UNIT/ML 1 ML VIAL SQ SCH ×2 (07:43→22:15)
[2019-07-22] MEDS: INSULIN ASPART (NovoLOG) 100 UNIT/ML VIAL SQ SCH ×4 (07:54→22:16)
[2019-07-22] MEDS: AZITHROMYCIN 500 MG in SODIUM CHLORIDE 0.9% 250 ML IVPB SCH (08:24)
[2019-07-22 11:21] LABS: Glucose,Whole Blood 129 mg/dL (75-99)
--- NOTE | 2019-07-22 12:51 | P.PN ---
Subjective Progress Note Date: 07/22/19 This is a 54-year-old female patient at the [facility] with past medical history of COPD, hyperlipidemia, chronic hypoxic respiratory failure on home O2 at 2 L nasal cannula, cervical cancer status post surgical intervention and hysterectomy, recurrent depression, history of tobacco use. Patient gives history of having shortness of breath with cough and tightness with wheezing that been going on for about 2 days. She also had chest pain in the middle of her chest to her back with deep inspiration. Patient came into [facility] emergency center for evaluation. She was found to have a temperature of 102.5, tachycardia 1 55 bpm, blood pressure 108/79, leukocytosis of 24.3. She also had a blood sugar 117, creatinine 1.61. AST 94, ALT 66, alkaline phosphatase 133, troponin negative, lactic acid 1.9. EKG was a sinus rhythm. Chest x-ray showed no acute cardiopulmonary disease. CT angiogram of the chest revealed markedly suboptimal nondiagnostic for pulmonary embolism. Chronic emphysematous and basilar fibrotic changes with areas of acute infiltrate suspected in the bilateral lower lungs. Patient was admitted to [facility] floor with consult in place for Dr. DONNIE Grady. Subsequently, patient underwent VQ scan which was intermediate or indeterminate probability for pulmonary embolism. Ultrasound bilateral lower extremities negative for DVT. 07/22: Patient's breathing status is much improved from yesterday. She states that she is feeling much improved from yesterday. She has been afebrile for the past 24 hours, heart rate 95, blood pressure 114/75, pulse ox 99% on 2 L nasal cannula. Patient is seen and followed by Dr. DONNIE Grady. She is currently on Solu-Medrol 60 every 6 hours which we will decrease to 40 mg every 8 hours. Blood sugars are running between 129 and 204. Blood cultures no growth after 24 hours. Anticipate discharge home tomorrow she continues to improve. Review of Systems Constitutional: Denies chills, Reports fatigue, Reports fever, denies weakness Eyes: denies blurred vision, denies pain Ears, nose, mouth and throat: Denies dysphagia, Denies headache, Denies nasal congestion, Denies nasal discharge, Denies sore throat, Denies vertigo Cardiovascular: Denies chest pain, Reports dyspnea on exertion, denies shortness of breath, Denies edema, Denies leg edema, Denies lightheadedness, Denies palpitations, Denies syncope Respiratory: Reports cough, Reports cough with sputum, denies dyspnea, Reports home oxygen, denies wheezing, Denies excessive sputum, Denies hemoptysis Gastrointestinal: Reports loss of appetite, Denies abdominal pain, Denies di arrhea, Denies nausea, Denies vomiting Genitourinary: Denies dysuria, Denies hematuria, Denies urgency, Denies urinary frequency Musculoskeletal: Denies frequent falls, Denies gait dysfunction, Denies muscle weakness, Denies myalgias Integumentary: Denies pruritus, Denies rash, Denies wounds Neurological: Denies change in mentation, Denies change in speech, Denies numbness, Denies seizures, Denies weakness Psychiatric: Denies anxiety, Denies depression Endocrine: Denies fatigue, Denies weight change Objective - Vital Signs Vital signs: Vital Signs Temp 97.5 F L 07/22/19 05:00 Pulse 95 07/22/19 07:37 Resp 18 07/22/19 05:00 BP 114/75 07/22/19 05:00 Pulse Ox 99 07/22/19 05:00 Intake & Output 07/21/19 07/22/19 07/22/19 18:59 06:59 18:59 Intake Total 230 60 Balance 230 60 Weight 136.078 kg Intake: Intake, IV Titration 230 60 Amount Sodium Chloride 0.9% 1, 180 60 000 ml @ 20 mls/hr IV . Q24H [facility] Rx#:[id number] cefTRIAXone 1 gm In 50 Sodium Chloride 0.9% 50 ml @ 100 mls/hr IVPB Q24HR [facility] Rx#:[id number] Other: Voiding Method Toilet Toilet # Voids 2 1 - Exam Gen: This is a morbidly obese 54-year-old female. Patient is resting with oxygen in place. No respiratory distress noted.] HEENT: Head is atraumatic, normocephalic. Pupils equal, round. Sclerae is anicteric. NECK: Supple. No JVD. No lymphadenopathy. No thyromegaly. LUNGS: Clear to auscultation. No intercostal retractions. No accessory muscle usage. HEART: Regular rate and rhythm. no murmur. ABDOMEN: Soft. Bowel sounds are present. No masses. No tenderness. EXTREMITIES: No pedal edema. No calf tenderness. Dorsalis pedis +2 bilateral ly. NEUROLOGICAL: Patient is awake, alert and oriented x3. Cranial nerves 2 through 12 are grossly intact. - Labs CBC & Chem 7: 07/21/19 04:50 07/21/19 04:50 Labs: Abnormal Lab Results - Last 24 Hours (Table) 07/21/19 07/21/19 07/21/19 Range/Units 12:04 16:51 19:55 POC Glucose (mg/dL) 165 H 185 H 204 H (75-99) mg/dL 07/22/19 Range/Units 06:48 POC Glucose (mg/dL) 157 H (75-99) mg/dL Microbiology - Last 24 Hours (Table) 07/21/19 04:50 Blood Culture - Preliminary Blood No Growth after 24 hours Assessment and Plan Plan: 1. Acute on chronic hypoxic respiratory failure secondary to COPD exacerbation and bilateral pneumonia. Continue DuoNeb treatments every 4 hours and Ventolin 4 times daily as needed, Pulmicort 1 mg twice daily, Solu-Medrol decreased to 40 mg every 8 hours, Mucinex, Rocephin and azithromycin, consult with pulmonary medicine. 2. Sepsis with lactic acidosis secondary to COPD exacerbation and pneumonia. Continue as in #1. 3. Chest pain secondary to costochondritis. 4. Elevated liver function tests most likely secondary to hypoxia, monitor. 5. Hyperlipidemia. Continue atorvastatin 10 mg daily. 6. Gastroesophageal reflux disease. Continue Pepcid 20 mg twice daily. 7. Recurrent depression. Continue Seroquel 300 mg at bedtime. 8. Coronary artery disease. Continue Imdur 30 mg daily, aspirin 81 mg daily, Lipitor. 9. DVT prophylaxis. Heparin subcu. 10. History of tobacco use and dependence, quit 1 year ago. Discharge plan: Home on Sunday Impression and plan of care have been directed as dictated by the signing physician. Suni Alicea nurse practitioner acting as scribe for signing physician.
--- NOTE | 2019-07-22 14:14 | PN ---
PROGRESS NOTE The patient was seen again on 07/22/2019. She is doing significantly better and has less shortness of breath. PHYSICAL EXAMINATION: Vitals are stable. She is afebrile. Chest reveals prolonged exhalation but no clear breath sounds. Cardiovascular system reveals an S1, S2. Abdomen is soft. There is no pedal edema. IMPRESSION: 1. Severe asthma with acute exacerbation. 2. Chronic obstructive pulmonary disease. 3. Acute respiratory failure due to hypoxia. 4. Secondary bacterial infection. Continue antibiotics, IV steroids, bronchodilators, increase her activity level. I agree with discharge planning for tomorrow if she is otherwise stable and continues to improve. MMODL / IJN: [id number] /
[2019-07-22] MEDS: methylPREDNISolone SOD SUCCI 40 MG/ML 1 ML VIAL IV SCH ×2 (16:25→23:57)
[2019-07-22 17:00] LABS: Glucose,Whole Blood 155 mg/dL (75-99)
[2019-07-22 20:05] LABS: Glucose,Whole Blood 197 mg/dL (75-99)
[2019-07-22] MEDS: QUEtiapine 100 MG TAB PO SCH (22:16)
[2019-07-23] MEDS: IPRATROPIUM-ALBUTEROL 3 ML NEB INHALATION SCH ×4 (00:16→12:04)
[2019-07-23 05:37] VITALS: BP 122/73; RESP 18; TEMP 97.5
[2019-07-23] MEDS: IBUPROFEN 800 MG TAB PO SCH (05:54)
[2019-07-23 06:59] LABS: Glucose,Whole Blood 167 mg/dL (75-99)
[2019-07-23] MEDS: SODIUM CHLORIDE 0.9% 1,000 ML IV SCH (08:11)
[2019-07-23] MEDS: BUDESONIDE 1 MG/2 ML NEBU INHALATION SCH (08:36)
[2019-07-23 08:40] VITALS: PULSE 88
[2019-07-23 09:56] LABS: HCT 34.1 % (34.0-46.0); MCH 32.1 pg (25.0-35.0); MCHC 32.2 g/dL (31.0-37.0); Platelet Count 319 k/uL (150-450); RBC 3.41 m/uL (3.80-5.40); RDW 13.9 % (11.5-15.5); WBC 16.6 k/uL (3.8-10.6)
[2019-07-23 10:09] LABS: Albumin 3.8 g/dL (3.5-5.0); Calcium 9.4 mg/dL (8.4-10.2); Potassium 4.7 mmol/L (3.5-5.1); Total Bilirubin 0.4 mg/dL (0.2-1.3); Total Protein 6.8 g/dL (6.3-8.2)
[2019-07-23] MEDS: AZITHROMYCIN 500 MG in SODIUM CHLORIDE 0.9% 250 ML IVPB SCH (10:11)
[2019-07-23] MEDS: ISOSORBIDE MONONITRATE ER 30 MG TAB.ER.24H PO SCH (10:12)
[2019-07-23] MEDS: MULTIVITAMINS, THERA 1 EACH TAB PO SCH (10:12)
[2019-07-23] MEDS: ATORVASTATIN 10 MG TAB PO SCH (10:12)
[2019-07-23] MEDS: FUROSEMIDE 20 MG TAB PO SCH (10:12)
[2019-07-23] MEDS: FAMOTIDINE 20 MG TAB PO SCH (10:12)
[2019-07-23] MEDS: METOPROLOL TARTRATE 25 MG TAB PO SCH (10:12)
[2019-07-23] MEDS: ASPIRIN 81 MG PO SCH (10:13)
[2019-07-23] MEDS: methylPREDNISolone SOD SUCCI 40 MG/ML 1 ML VIAL IV SCH (10:13)
[2019-07-23] MEDS: INSULIN ASPART (NovoLOG) 100 UNIT/ML VIAL SQ SCH ×2 (10:13→12:18)
[2019-07-23] MEDS: GABAPENTIN 300 MG CAP PO SCH (10:14)
[2019-07-23] MEDS: HEPARIN SODIUM,PORCINE 5,000 UNIT/ML 1 ML VIAL SQ SCH (10:14)
[2019-07-23] MEDS: CHOLECALCIFEROL 1,000 UNIT TAB PO SCH (10:14)
[2019-07-23] MEDS: guaiFENesin 600 MG TABLET.ER PO SCH (10:14)
[2019-07-23] MEDS: CALCIUM CARB-VIT D 500MG-200UN 1 EACH TAB PO SCH (10:16)
[2019-07-23] MEDS: DESVENLAFAXINE SUCCINATE 50 MG TAB.ER.24H PO SCH (10:18)
[2019-07-23 11:25] LABS: Glucose,Whole Blood 102 mg/dL (75-99)
--- NOTE | 2019-07-23 14:03 | PN ---
PROGRESS NOTE The patient was seen on July 23, 2019. She is less short of breath and is almost back to baseline. On physical examination her pulse rate is 88, temperature 97.5, blood pressure 122/73, respiratory rate of 18, O2 saturation on 2 L by nasal cannula is 99%. HEENT: Unremarkable. CHEST: Reveals prolonged exhalation. No wheeze. CARDIOVASCULAR SYSTEM: Reveals S1, S2. ABDOMEN: Soft. There is no edema. Blood cultures showing a coag-negative staph, which may be contaminant. IMPRESSION: 1. Severe asthma with acute exacerbation. 2. Chronic obstructive pulmonary disease. 3. Secondary bacterial infection. I agree with discharge planning on antibiotics, steroids and bronchodilators. We would be happy to see her in the next 48 hours as an outpatient. She was counseled regarding her condition. MMKIERANL / TEOFILON: [id number] /
--- NOTE | 2019-07-23 14:15 | P.DS ---
Providers Date of admission: 07/21/19 06:19 Expected date of discharge: 07/23/19 Attending physician: Luis Barney Consults: 07/21/19 06:17 Consult Physician Routine Consulting Provider: Rashid Grady Consult Reason/Comments: COPD Exacerbation Do you want consulting provider notified?: Yes Primary care physician: [facility] Course: This is a 54-year-old female patient at the [facility] with past medical history of COPD, hyperlipidemia, chronic hypoxic respiratory failure on home O2 at 2 L nasal cannula, cervical cancer status post surgical intervention and hysterectomy, recurrent depression, history of tobacco use. Patient gives history of having shortness of breath with cough and tightness with wheezing that been going on for about 2 days. She also had chest pain in the middle of her chest to her back with deep inspiration. Patient came into [facility] emergency center for evaluation. She was found to have a temperature of 102.5, tachycardia 1 55 bpm, blood pressure 108/79, leukocytosis of 24.3. She also had a blood sugar 117, creatinine 1.61. AST 94, ALT 66, alkaline phosphatase 133, troponin negative, lactic acid 1.9. EKG was a sinus rhythm. Chest x-ray showed no acute cardiopulmonary disease. CT angiogram of the chest revealed markedly suboptimal nondiagnostic for pulmonary embolism. Chronic emphysematous and basilar fibrotic changes with areas of acute infiltrate suspected in the bilateral lower lungs. Patient was admitted to the [facility] floor with consult in place for Dr. DONNIE Grady. Subsequently, patient underwent VQ scan which was intermediate or indeterminate probability for pulmonary embolism. Ultrasound bilateral lower extremities negative for DVT. 07/22: Patient's breathing status is much improved from yesterday. She states that she is feeling much improved from yesterday. She has been afebrile for the past 24 hours, heart rate 95, blood pressure 114/75, pulse ox 99% on 2 L nasal cannula. Patient is seen and followed by Dr. DONNIE Grady. She is currently on Solu-Medrol 60 every 6 hours which we will decrease to 40 mg every 8 hours. Blood sugars are running between 129 and 204. Blood cultures no growth after 24 hours. Anticipate discharge home tomorrow she continues to improve. 07/23: Patient remains afebrile, heart rate 88, blood pressure 122/73, pulse ox 99% on 2 L nasal cannula. Breathing status is improved and near baseline. Repeat lab work reveals white count of 16.6, hemoglobin 11, BUN 22 and creatinine 0.88, blood sugars running between 102 08/20/1966. Patient will be discharged home today in stable condition. Discharge diagnoses: 1. Acute on chronic hypoxic respiratory failure secondary to COPD exacerbation and bilateral pneumonia. 2. Sepsis with lactic acidosis secondary to COPD exacerbation and pneumonia. 3. Chest pain secondary to costochondritis. 4. Elevated liver function tests most likely secondary to hypoxia, monitor. 5. Hyperlipidemia. 6. Gastroesophageal reflux disease. 7. Recurrent depression. 8. Coronary artery disease. 9. History of tobacco use and dependence, quit 1 year ago. Discharge plan: Home Impression and plan of care have been directed as dictated by the signing physician. Suni Alicea nurse practitioner acting as scribe for signing physician. Patient Condition at Discharge: Good Plan - Discharge Summary Discharge Rx Participant: No New Discharge Prescriptions: New guaiFENesin [Mucinex] 600 mg PO Q12HR tablet.er predniSONE 0 mg PO DIRECTED #40 tab Azithromycin [Zithromax Tri-Jai] 500 mg PO DAILY 5 Days #5 tab Continue Aspirin EC [Ecotrin Low Dose] 81 mg PO DAILY QUEtiapine FUMARATE [SEROquel] 300 mg PO HS Potassium Chloride ER [K-Dur 10] 10 meq PO Q48H Nitroglycerin Sl Tabs [Nitrostat] 0.4 mg SUBLINGUAL Q5M PRN PRN Reason: Chest Pain Multivitamin [Multivitamins Adult Gummies] 1 tab PO DAILY Metoprolol Tartrate [Lopressor] 25 mg PO DAILY Isosorbide Mononitrate ER [Imdur] 30 mg PO DAILY Gabapentin [Neurontin] 300 mg PO TID Calcium Carbonate/Vitamin D3 [Calcium 600-Vit D3 400 Caplet] 1 tab PO BID Atorvastatin [Lipitor] 10 mg PO DAILY Albuterol Inhaler [Ventolin Hfa Inhaler] 2 puff INHALATION RT-Q6H PRN PRN Reason: Shortness Of Breath Montelukast Sodium [Singulair] 10 mg PO HS Beclomethasone Dip 80 Mcg/Puff [Qvar 80 mcg] 2 puff INHALATION RT-BID Albuterol Nebulized [Ventolin Nebulized] 2.5 mg INHALATION RT-Q6H PRN PRN Reason: Shortness Of Breath Pantoprazole Sodium [Protonix] 40 mg PO DAILY Discharge Medication List Aspirin EC [Ecotrin Low Dose] 81 mg PO DAILY 04/06/18 [History] Albuterol Inhaler [Ventolin Hfa Inhaler] 2 puff INHALATION RT-Q6H PRN 05/05/19 [History] Atorvastatin [Lipitor] 10 mg PO DAILY 05/05/19 [History] Calcium Carbonate/Vitamin D3 [Calcium 600-Vit D3 400 Caplet] 1 tab PO BID 05/05/19 [History] Gabapentin [Neurontin] 300 mg PO TID 05/05/19 [History] Isosorbide Mononitrate ER [Imdur] 30 mg PO DAILY 05/05/19 [History] Metoprolol Tartrate [Lopressor] 25 mg PO DAILY 05/05/19 [History] Multivitamin [Multivitamins Adult Gummies] 1 tab PO DAILY 05/05/19 [History] Nitroglycerin Sl Tabs [Nitrostat] 0.4 mg SUBLINGUAL Q5M PRN 05/05/19 [History] Potassium Chloride ER [K-Dur 10] 10 meq PO Q48H 05/05/19 [History] QUEtiapine FUMARATE [SEROquel] 300 mg PO HS 05/05/19 [History] Albuterol Nebulized [Ventolin Nebulized] 2.5 mg INHALATION RT-Q6H PRN 07/21/19 [History] Beclomethasone Dip 80 Mcg/Puff [Qvar 80 mcg] 2 puff INHALATION RT-BID 07/21/19 [History] Montelukast Sodium [Singulair] 10 mg PO HS 07/21/19 [History] Pantoprazole Sodium [Protonix] 40 mg PO DAILY 07/21/19 [History] Azithromycin [Zithromax Tri-Jai] 500 mg PO DAILY 5 Days #5 tab 07/23/19 [Rx] guaiFENesin [Mucinex] 600 mg PO Q12HR tablet.er 07/23/19 [Rx] predniSONE 0 mg PO DIRECTED #40 tab 07/23/19 [Rx] Follow up Appointment(s)/Referral(s): [facility] - 07/31/19 4:30 pm (patient will have to call and schedule appt) Rashid Grady MD [STAFF PHYSICIAN] - 07/29/19 3:00 pm ([address] office) Patient Instructions/Handouts: Prednisone (By mouth), Azithromycin (By mouth), COPD (Chronic Obstructive Pulmonary Disease) (DC) Activity/Diet/Wound Care/Special Instructions: Oxygen at 2 liters [place] Activity as tolerated.
[2019-07-24] MEDS ORDERED: AZITHROMYCIN 500 MG TAB PO SCH (09:00)
== END 2019-07-23 15:05 | disposition home or self-care (01) ==
LOC: EC 04:41 → 3NMEDONC 06:19 → INTOOBSV 06:19 → UNDODISIN 07-23 15:05
PROVIDERS: ADMIT Internal Medicine Geriatric Medicine; ATTEND Internal Medicine Geriatric Medicine
DX: A41.9 Sepsis, unspecified organism (principal); J18.9 Pneumonia, unspecified organism; J96.21 Acute and chronic respiratory failure with hypoxia; E87.2 Acidosis; D33.9 Benign neoplasm of central nervous system, unspecified; J44.0 Chronic obstructive pulmonary disease with (acute) lower respiratory infection; J44.1 Chronic obstructive pulmonary disease with (acute) exacerbation; J45.51 Severe persistent asthma with (acute) exacerbation; E78.5 Hyperlipidemia, unspecified; I25.10 Atherosclerotic heart disease of native coronary artery without angina pectoris; K21.9 Gastro-esophageal reflux disease without esophagitis; M94.0 Chondrocostal junction syndrome [Tietze]; Z79.1 Long term (current) use of non-steroidal anti-inflammatories (NSAID); Z79.82 Long term (current) use of aspirin; Z79.899 Other long term (current) drug therapy; Z80.1 Family history of malignant neoplasm of trachea, bronchus and lung; Z82.49 Family history of ischemic heart disease and other diseases of the circulatory system; Z85.41 Personal history of malignant neoplasm of cervix uteri; Z90.710 Acquired absence of both cervix and uterus; Z87.891 Personal history of nicotine dependence; Z99.81 Dependence on supplemental oxygen; F33.9 Major depressive disorder, recurrent, unspecified
CPT/HCPCS: 96376 ×3; 96365; 96366 ×3; 96367; 96372 ×3; 96375; 99285; 36415; 94640 ×6; 93005; 85379; 83880; 80053 ×2; 83605; 84484; 85025; 85027; 85610; 85730; 87040; 87077; 87186; 87502; 71045; 93970; 71275; 78582; G0378 ×3; A9540; A9567; J1644 ×3; J2920 ×2; J2930 ×2; J0456 ×3; J0696 ×3; J7512; Q9967

== ENCOUNTER 2020-05-06 09:48 | Observation (INO) | payer OTHER ==
[2020-05-06] MEDS ORDERED: SODIUM CHLORIDE 0.9% 500 ML 500 ML IV ONE (09:56)
[2020-05-06] MEDS ORDERED: HYDROmorphone 0.5 MG/0.5 ML SYRINGE IVP STA (10:14)
[2020-05-06] MEDS ORDERED: ONDANSETRON 4 MG/2 ML VIAL IVP STA (10:15)
[2020-05-06] MEDS: SODIUM CHLORIDE 0.9% 1,000 ML IV SCH ×2 (10:19→16:00)
[2020-05-06 10:27] LABS: Basophils # (A) 0.1 k/uL (0-0.2); Basophils % (A) 0 %; Eosinophils # (A) 0.2 k/uL (0-0.7); Eosinophils % (A) 1 %; HCT 40.7 % (34.0-46.0); HGB 13.2 gm/dL (11.4-16.0); Lymphocytes # (A) 2.8 k/uL (1.0-4.8); Lymphocytes % (A) 21 %; MCHC 32.4 g/dL (31.0-37.0); MCV 95.7 fL (80.0-100.0); Mean Platelet Volume 7.6; Monocytes # (A) 0.6 k/uL (0-1.0); Monocytes % (A) 5 %; Neutrophils # (A) 9.3 k/uL (1.3-7.7); Neutrophils % (A) 71 %; Platelet Count 313 k/uL (150-450); RBC 4.26 m/uL (3.80-5.40); RDW 12.7 % (11.5-15.5)
[2020-05-06 10:34] LABS: Albumin 4.4 g/dL (3.5-5.0); Calcium 9.7 mg/dL (8.4-10.2); Potassium 4.2 mmol/L (3.5-5.1); Total Bilirubin 0.5 mg/dL (0.2-1.3); Total Protein 7.5 g/dL (6.3-8.2)
[2020-05-06 10:45] LABS: Amorphous Sediment,Urine Occasional /hpf; Appearance,Urine Cloudy (Clear); Bacteria,Urine Rare /hpf; Bilirubin,Urine Negative (Negative); Blood,Urine Negative (Negative); Color,Urine Yellow; Glucose,Urine (UA) Negative (Negative); Hyaline Casts,Urine 11 /lpf (0-2); Ketones,Urine Negative (Negative); Leukocyte Esterase,Urine Large (Negative); Mucus,Urine Few /hpf; Nitrite,Urine Negative (Negative); Protein,Urine Trace (Negative); RBC,Urine 2 /hpf (0-5); Specific Gravity,Urine 1.024 (1.001-1.035); Squamous Epithelial Cell,Urine 21 /hpf (0-4); WBC,Urine 6 /hpf (0-5)
[2020-05-06] MEDS ORDERED: PIPERACILLIN-TAZOBACTAM 3.375 GM in SODIUM CHLORIDE 0.9% 100 ML IVPB STA (11:04)
--- NOTE | 2020-05-06 11:05 | ED ---
Abdominal Pain HPI - General Chief Complaint: Abdominal Pain Stated Complaint: abd pain Time Seen by Provider: 05/06/20 09:52 Source: patient Mode of arrival: ambulatory Limitations: no limitations - History of Present Illness Initial Comments: 54-year-old female COPD hx currently nonsmoker x 3 years, on home oxygen 2L, CAD, HTN presenting today for chief complaint of abdominal pain. Patient states that she has lower abdominal pain she states she also has pain near her belly button. Patient states it began at 6 AM she states she drank her coffee and felt nauseated. Denies any vomiting denies fevers denies constipation but states she has had chronic diarrhea. She denies any chest pain shortness of breath denies pelvic pain discharge or vaginal bleeding. Patient denies dysuria urgency frequency or hematuria patient denies radiation to the back upon arrival patient appears nontoxic she does appear uncomfortable remaining review of systems negative] Did not eat today, 1 cup of coffee. - Related Data Home Medications Medication Instructions Recorded Confirmed Aspirin EC [Ecotrin Low Dose] 81 mg PO DAILY 04/06/18 07/21/19 Albuterol Inhaler (Mhu) [Ventolin 2 puff INHALATION RT-Q6H PRN 05/05/19 07/21/19 Hfa Inhaler (Mhu)] Atorvastatin [Lipitor] 10 mg PO DAILY 05/05/19 07/21/19 Calcium Carbonate/Vitamin D3 1 tab PO BID 05/05/19 07/21/19 [Calcium 600-Vit D3 400 Caplet] Gabapentin [Neurontin] 300 mg PO TID 05/05/19 07/21/19 Isosorbide Mononitrate ER [Imdur] 30 mg PO DAILY 05/05/19 07/21/19 Metoprolol Tartrate [Lopressor] 25 mg PO DAILY 05/05/19 07/21/19 Multivitamin [Multivitamins Adult 1 tab PO DAILY 05/05/19 07/21/19 Gummies] Nitroglycerin Sl Tabs [Nitrostat] 0.4 mg SUBLINGUAL Q5M PRN 05/05/19 07/21/19 Potassium Chloride ER [K-Dur 10] 10 meq PO Q48H 05/05/19 07/21/19 QUEtiapine FUMARATE [SEROquel] 300 mg PO HS 05/05/19 07/21/19 Albuterol Nebulized [Ventolin 2.5 mg INHALATION RT-Q6H PRN 07/21/19 07/21/19 Nebulized] Beclomethasone Dip 80 Mcg/Puff 2 puff INHALATION RT-BID 07/21/19 07/21/19 [Qvar 80 mcg] Montelukast Sodium [Singulair] 10 mg PO HS 07/21/19 07/21/19 Pantoprazole Sodium [Protonix] 40 mg PO DAILY 07/21/19 07/21/19 Previous Rx's Medication Instructions Recorded Azithromycin [Zithromax Tri-Jai] 500 mg PO DAILY 5 Days #5 tab 07/23/19 guaiFENesin [Mucinex] 600 mg PO Q12HR tablet.er 07/23/19 predniSONE 0 mg PO DIRECTED #40 tab 07/23/19 Allergies Allergy/AdvReac Type Severity Reaction Status Date / Time codeine AdvReac Nausea & Verified 05/06/20 09:49 Vomiting Review of Systems ROS Statement: Those systems with pertinent positive or pertinent negative responses have been documented in the HPI. ROS Other: All systems not noted in ROS Statement are negative. Past Medical History Past Medical History: Cancer, COPD, Hyperlipidemia, Pneumonia Additional Past Medical History / Comment(s): COPD stage III, home oxygen at 2L/NC ATC, bronchitis, cervical cancer with surgeries. History of Any Multi-Drug Resistant Organisms: None Reported Past Surgical History: Orthopedic Surgery Additional Past Surgical History / Comment(s): Cervix cancer pt had frozen then 2 resections of lesion then hysterectomy, biltaral thumbs tendon surgery.. Past Anesthesia/Blood Transfusion Reactions: No Reported Reaction Past Psychological History: Anxiety, Depression, PTSD Smoking Status: Former smoker Past Alcohol Use History: None Reported Past Drug Use History: None Reported - Past Family History Mother Family Medical History: Hypertension Additional Family Medical History / Comment(s): Mother is 81 yrs old. Father Family Medical History: Cancer Additional Family Medical History / Comment(s): Father of lung cancer at the age of 83 yrs old Brother(s) Additional Family Medical History / Comment(s): Patient has 4 brothers and 2 brothers were murdered otherwise she does not know medical history. Patient has 11 sisters and does not know medical history. Patient has 4 daughters and 1 son with no major medical problems. General Exam - General Exam Comments Initial Comments: General: The patient is awake and alert, in no distress Eye: +3 mm pupils are equal, round and reactive to light, extra-ocular movements are intact. No nystagmus. There is normal conjunctiva bilaterally. No signs of icterus. Ears, nose, mouth and throat: There are moist mucous membranes and no oral lesions. Neck: The neck is supple, there is no tenderness or JVD. Cardiovascular: There is a regular rate and rhythm. No murmur, rub or gallop is appreciated. Respiratory: Lungs are clear to auscultation, respirations are non-labored, breath sounds are equal. No wheezes, stridor, rales, or rhonchi. Gastrointestinal: Soft, non-distended, periumbilical and RLQ tenderness to palpation of the abdomen without masses or organomegaly noted. There is no rebound or guarding present. Musculoskeletal: Normal ROM, no tenderness. Strength 5/5. Sensation intact. Radial pulses equal bilaterally 2+. Neurological: A&O x 3. CN II-XII intact grossly, There are no obvious motor or sensory deficits. Coordination appears grossly intact. Speech is normal. Skin: Skin is warm and dry and no rashes or lesions are noted. Psychiatric: Cooperative, appropriate mood & affect, normal judgment. Limitations: no limitations Course Vital Signs 05/06/20 05/06/20 09:49 10:24 Temperature 97.8 F 98.1 F Pulse Rate 107 H 80 Respiratory 18 18 Rate Blood Pressure 137/82 144/97 O2 Sat by Pulse 99 97 Oximetry Medical Decision Making - Medical Decision Making Acute appendicitis. Blood cultures pending. Zosyn initiated. Surgery consulted. Patient agreeable to admission and care plan. Dr. Reyes spoke with Dr. Reyes and is agreeable to care plan. - Lab Data Result diagrams: 05/06/20 09:58 05/06/20 09:58 Lab Results 05/06/20 05/06/20 05/06/20 Range/Units 09:58 09:58 09:58 WBC 13.0 H (3.8-10.6) k/uL RBC 4.26 (3.80-5.40) m/uL Hgb 13.2 (11.4-16.0) gm/dL Hct 40.7 (34.0-46.0) % MCV 95.7 (80.0-100.0) fL MCH 31.0 (25.0-35.0) pg MCHC 32.4 (31.0-37.0) g/dL RDW 12.7 (11.5-15.5) % Plt Count 313 (150-450) k/uL Neutrophils % 71 % Lymphocytes % 21 % Monocytes % 5 % Eosinophils % 1 % Basophils % 0 % Neutrophils # 9.3 H (1.3-7.7) k/uL Lymphocytes # 2.8 (1.0-4.8) k/uL Monocytes # 0.6 (0-1.0) k/uL Eosinophils # 0.2 (0-0.7) k/uL Basophils # 0.1 (0-0.2) k/uL Sodium 141 (137-145) mmol/L Potassium 4.2 (3.5-5.1) mmol/L Chloride 107 (98-107) mmol/L Carbon Dioxide 25 (22-30) mmol/L Anion Gap 9 mmol/L BUN 7 (7-17) mg/dL Creatinine 0.96 (0.52-1.04) mg/dL Est GFR (CKD-EPI)AfAm 78 (>60 ml/min/1.73 sqM) Est GFR (CKD-EPI)NonAf 67 (>60 ml/min/1.73 sqM) Glucose 134 H (74-99) mg/dL Calcium 9.7 (8.4-10.2) mg/dL Total Bilirubin 0.5 (0.2-1.3) mg/dL AST 26 (14-36) U/L ALT 22 (4-34) U/L Alkaline Phosphatase 136 H (38-126) U/L Total Protein 7.5 (6.3-8.2) g/dL Albumin 4.4 (3.5-5.0) g/dL Amylase 33 (30-110) U/L Lipase 82 (23-300) U/L Urine Color Yellow Urine Appearance Cloudy H (Clear) Urine pH 5.0 (5.0-8.0) Ur Specific [place] 1.024 (1.001-1.035) Urine Protein Trace H (Negative) Urine Glucose (UA) Negative (Negative) Urine Ketones Negative (Negative) Urine Blood Negative (Negative) Urine Nitrite Negative (Negative) Urine Bilirubin Negative (Negative) Urine Urobilinogen 2.0 (<2.0) mg/dL Ur Leukocyte Esterase Large H (Negative) Urine RBC 2 (0-5) /hpf Urine WBC 6 H (0-5) /hpf Ur Squamous Epith Cells 21 H (0-4) /hpf Amorphous Sediment Occasional H (None) /hpf Urine Bacteria Rare H (None) /hpf Hyaline Casts 11 H (0-2) /lpf Urine Mucus Few H (None) /hpf Disposition Clinical Impression: Appendicitis, Abdominal pain Disposition: ADMITTED IP TO THIS [facility] Condition: Stable Is patient prescribed a controlled substance at d/c from ED?: No Referrals: [facility] [Primary Care Provider] - 1-2 days Time of Disposition: 11:05 Decision to Admit Reason: Admit from EC Decision Date: 05/06/20 Decision Time: 11:05
[2020-05-06] MEDS ORDERED: NALOXONE 0.4 MG/ML 1 ML VIAL IV PRN (11:06)
--- NOTE | 2020-05-06 11:09 | CT ---
EXAMINATION TYPE: CT abdomen pelvis w con DATE OF EXAM: 05/06/2020 COMPARISON: Pain HISTORY: Low pelvic pain with diarrhea for 2-[address] DLP: 1413.3 mGycm Automated exposure control for dose reduction was used. CONTRAST: CT scan of the abdomen pelvis is performed with IV Contrast, patient injected with 100 mL of Isovue 3 00. FINDINGS- LUNG BASES-subsegmental changes at the lung bases most typical of atelectasis trace of pericardial fl uid.. LIVER/GB- No gross abnormality is appreciated. PANCREAS- No gross abnormality is seen. SPLEEN- No gross abnormality is seen. ADRENALS- No gross abnormality is seen. KIDNEYS/BLADDER-multiple hypodensities within the kidneys some of which are too small to characterize . Larger 1's are compatible simple cyst. No overt hydronephrosis.. BOWEL-there is mild dilation of the appendix measuring 9 mm. There is periappendiceal inflammatory ch tasha compatible with acute appendicitis. No abscess. No diagnostic evidence of free air. LYMPH NODES- No greater than 1cm abdominal or pelvic lymph nodes areappreciated. OSSEOUS STRUCTURES-hypertrophic and degenerative change of the spine. OTHER- aorta of normal caliber. Atherosclerotic changes are seen. Significant stenosis involving the common iliac arteries suspected. Small fat-containing periumbilical hernia IMPRESSION- 1. Acute appendicitis
[2020-05-06 12:23] LABS: INR 0.9 (<1.2); Partial Thromboplastin Time 22.2 sec (22.0-30.0); Prothrombin Time 9.5 sec (9.0-12.0)
[2020-05-06] MEDS ORDERED: IV FLUID CONTINUATION 1,000 ML IV ONE (12:46)
[2020-05-06] MEDS ORDERED: ONDANSETRON 4 MG/2 ML VIAL ONE (12:57)
--- NOTE | 2020-05-06 12:57 | P.GSHP ---
History of Present Illness H&P Date: 05/06/20 Chief Complaint: Acute appendicitis 54-year-old female presents to the ER complaining of pain that began in the upper mid abdomen but has radiated down to the right lower quadrant. This initially began last night. Much more severe this morning. Pain is 10 out of 10. She is nauseated without vomiting. No fevers. White blood cell count is elevated. Patient's CAT scan shows acute appendicitis. - Review of Systems Comment: The patient denies any acute changes in vision or hearing, no dysphagia or odynophagia, no chest pain or shortness of breath, no dysuria or hematuria, no headache, no runny nose, no rectal bleeding or melena, no unexplained weight loss Past Medical History Past Medical History: Coronary Artery Disease (CAD), Cancer, COPD, GERD/Reflux, Hyperlipidemia, Pneumonia, Renal Disease Additional Past Medical History / Comment(s): PT states recently urine is dark and smells fowl, pt states recently L eye vision change-not as focused, COPD stage III, home oxygen at 2L/NC ATC, pneumonia with sepsis, bronchitis, cervical cancer with surgeries, renal cysts, vitamin D deficiency, chronic low back pain, frequent migraines, hyperglycemia with steroid use.. History of Any Multi-Drug Resistant Organisms: None Reported Past Surgical History: Heart Catheterization, Hysterectomy, Orthopedic Surgery Additional Past Surgical History / Comment(s): Cervix cancer pt had frozen then 2 resections of lesion then hysterectomy, biltaral thumbs tendon surgery.. Past Anesthesia/Blood Transfusion Reactions: No Reported Reaction Smoking Status: Former smoker - Past Family History Mother Family Medical History: Hypertension Additional Family Medical History / Comment(s): Mother is 83 yrs old. Father Family Medical History: Cancer Additional Family Medical History / Comment(s): Father of lung cancer at the age of 83 yrs old Brother(s) Additional Family Medical History / Comment(s): Patient has 4 brothers and 2 brothers were murdered otherwise she does not know medical history. Patient has 11 sisters and does not know medical history. Patient has 4 daughters and 1 son with no major medical problems. Medications and Allergies Home Medications Medication Instructions Recorded Confirmed Type Atorvastatin [Lipitor] 10 mg PO DAILY 05/05/19 07/21/19 History Isosorbide Mononitrate ER [Imdur] 30 mg PO DAILY 05/05/19 07/21/19 History Metoprolol Tartrate [Lopressor] 25 mg PO DAILY 05/05/19 07/21/19 History Nitroglycerin Sl Tabs [Nitrostat] 0.4 mg SUBLINGUAL Q5M PRN 05/05/19 07/21/19 History Potassium Chloride ER [K-Dur 10] 10 meq PO Q48H 05/05/19 07/21/19 History QUEtiapine FUMARATE [SEROquel] 300 mg PO HS 05/05/19 07/21/19 History Montelukast Sodium [Singulair] 10 mg PO HS 07/21/19 07/21/19 History Albuterol Inhaler [Ventolin Hfa 2 puff INHALATION RT-Q4H PRN 05/06/20 05/06/20 History Inhaler] Butalb/APAP/Caff 50-325-40Mg 1 tab PO Q8H PRN 05/06/20 05/06/20 History [Fioricet 50-325-40] FLUoxetine HCL [PROzac] 20 mg PO DAILY 05/06/20 05/06/20 History Gabapentin 600 mg PO TID 05/06/20 05/06/20 History HYDROcodone/APAP 7.5-325MG [Ariton 1 tab PO BID PRN 05/06/20 05/06/20 History 7.5-325] Topiramate [Topamax] 50 mg PO BID 05/06/20 05/06/20 History hydrOXYzine pamoate [Vistaril] 25 mg PO BID 05/06/20 05/06/20 History tiZANidine [Zanaflex] 4 mg PO BID PRN 05/06/20 05/06/20 History Allergies Allergy/AdvReac Type Severity Reaction Status Date / Time codeine AdvReac Nausea & Verified 05/06/20 09:49 Vomiting Surgical - Exam Vital Signs Temp Pulse Resp BP Pulse Ox 97.8 F 107 H 18 137/82 99 05/06/20 09:49 05/06/20 09:49 05/06/20 09:49 05/06/20 09:49 05/06/20 09:49 Physical exam: General: Well-developed, well-nourished HEENT: Normocephalic, sclerae nonicteric Abdomen: Right lower quadrant tenderness, nondistended Extremities: No edema Neuro: Alert and oriented Results - Labs 05/06/20 09:58 05/06/20 09:58 Abnormal Lab Results - Last 24 Hours (Table) 05/06/20 05/06/20 05/06/20 Range/Units 09:58 09:58 09:58 WBC 13.0 H (3.8-10.6) k/uL Neutrophils # 9.3 H (1.3-7.7) k/uL Glucose 134 H (74-99) mg/dL Alkaline Phosphatase 136 H (38-126) U/L Urine Appearance Cloudy H (Clear) Urine Protein Trace H (Negative) Ur Leukocyte Esterase Large H (Negative) Urine WBC 6 H (0-5) /hpf Ur Squamous Epith Cells 21 H (0-4) /hpf Amorphous Sediment Occasional H (None) /hpf Urine Bacteria Rare H (None) /hpf Hyaline Casts 11 H (0-2) /lpf Urine Mucus Few H (None) /hpf Diabetes panel 05/06/20 Range/Units 09:58 Sodium 141 (137-145) mmol/L Potassium 4.2 (3.5-5.1) mmol/L Chloride 107 (98-107) mmol/L Carbon Dioxide 25 (22-30) mmol/L BUN 7 (7-17) mg/dL Creatinine 0.96 (0.52-1.04) mg/dL Glucose 134 H (74-99) mg/dL Calcium 9.7 (8.4-10.2) mg/dL AST 26 (14-36) U/L ALT 22 (4-34) U/L Alkaline Phosphatase 136 H (38-126) U/L Total Protein 7.5 (6.3-8.2) g/dL Albumin 4.4 (3.5-5.0) g/dL Calcium panel 05/06/20 Range/Units 09:58 Calcium 9.7 (8.4-10.2) mg/dL Albumin 4.4 (3.5-5.0) g/dL Pituitary panel 05/06/20 Range/Units 09:58 Sodium 141 (137-145) mmol/L Potassium 4.2 (3.5-5.1) mmol/L Chloride 107 (98-107) mmol/L Carbon Dioxide 25 (22-30) mmol/L BUN 7 (7-17) mg/dL Creatinine 0.96 (0.52-1.04) mg/dL Glucose 134 H (74-99) mg/dL Calcium 9.7 (8.4-10.2) mg/dL Adrenal panel 05/06/20 Range/Units 09:58 Sodium 141 (137-145) mmol/L Potassium 4.2 (3.5-5.1) mmol/L Chloride 107 (98-107) mmol/L Carbon Dioxide 25 (22-30) mmol/L BUN 7 (7-17) mg/dL Creatinine 0.96 (0.52-1.04) mg/dL Glucose 134 H (74-99) mg/dL Calcium 9.7 (8.4-10.2) mg/dL Total Bilirubin 0.5 (0.2-1.3) mg/dL AST 26 (14-36) U/L ALT 22 (4-34) U/L Alkaline Phosphatase 136 H (38-126) U/L Total Protein 7.5 (6.3-8.2) g/dL Albumin 4.4 (3.5-5.0) g/dL Assessment and Plan (1) Appendicitis Narrative/Plan: 54 yo female with acute appendicitis. Patient unfortunately with fairly severe underlying pulmonary disease. Clinical scenario reviewed. We'll proceed with laparoscopic, possible open appendectomy at this time. Risks of bleeding, infection, abscess, leak, bladder bowel and ureteral injury, respiratory failure, pneumonia, hernia, conversion to an open procedure were reviewed. She understands and wishes to proceed. Current Visit: Yes Status: Acute Code(s): K37 - UNSPECIFIED APPENDICITIS SNOMED Code(s): 47612347
[2020-05-06] MEDS ORDERED: DEXAMETHASONE SOD PHOSPHATE 10 MG/ML 1 ML VIAL IV ONE (13:05)
[2020-05-06] MEDS ORDERED: ONDANSETRON 4 MG/2 ML VIAL IVP ONE (13:05)
[2020-05-06] MEDS ORDERED: HEPARIN SODIUM,PORCINE 5,000 UNIT/ML 1 ML VIAL SQ ONE (13:07)
[2020-05-06] MEDS ORDERED: PROPOFOL 10 MG/ML 20 ML VIAL IV ONE (13:34)
[2020-05-06] MEDS ORDERED: SUCCINYLCHOLINE CHLORIDE 100 MG/5 ML SYR IV ONE (13:34)
[2020-05-06] MEDS ORDERED: ROCURONIUM BROMIDE 10 MG/ML 5 ML VIAL IV ONE (13:34)
[2020-05-06] MEDS ORDERED: fentaNYL (PF) 50 MCG/ML 2 ML AMP ONE (13:34)
[2020-05-06] MEDS ORDERED: GLYCOPYRROLATE 0.2 MG/ML 2 ML VIAL ONE (13:34)
[2020-05-06] MEDS ORDERED: KETOROLAC 15 MG/ML 1 ML VIAL ONE (13:34)
[2020-05-06] MEDS ORDERED: NEOSTIGMINE 1 MG/ML 10 ML VIAL ONE (13:34)
[2020-05-06] MEDS ORDERED: MIDAZOLAM 2 MG/2 ML VIAL ONE (13:34)
[2020-05-06] MEDS ORDERED: LIDOCAINE 1% INJ 10MG/ML (20 ML MDV) ONE (13:34)
[2020-05-06] MEDS ORDERED: BUPIVACAINE (PF) 0.25% 30 ML VIAL SQ ONE (13:37)
[2020-05-06] MEDS ORDERED: traMADol 50 MG TAB PO PRN (14:29)
[2020-05-06] MEDS ORDERED: ONDANSETRON 4 MG/2 ML VIAL IVP PRN (14:29)
[2020-05-06] MEDS ORDERED: ACETAMINOPHEN IV (For NPO) 1,000 MG in EMPTY BAG 1 BAG IVPB ONE (14:29)
[2020-05-06] MEDS ORDERED: HYDROmorphone 1 MG/ML 1 ML SYRINGE IVP PRN (14:29)
[2020-05-06] MEDS ORDERED: HYDROmorphone 0.5 MG/0.5 ML SYRINGE IVP ONE (14:57)
[2020-05-06] MEDS: HEPARIN SODIUM,PORCINE 5,000 UNIT/ML 1 ML VIAL SQ SCH (16:48)
[2020-05-06] MEDS: KETOROLAC 15 MG/ML 1 ML VIAL IVP SCH (18:26)
[2020-05-06] MEDS ORDERED: tiZANidine 4 MG TAB PO PRN (20:53)
[2020-05-06] MEDS ORDERED: MONTELUKAST 10 MG TAB PO SCH (21:00)
[2020-05-06] MEDS ORDERED: QUEtiapine 100 MG TAB PO SCH (21:00)
[2020-05-06] MEDS: FAMOTIDINE 20 MG TAB PO SCH (21:33)
[2020-05-06] MEDS: hydrOXYzine pamoate 25 MG CAP PO SCH (21:34)
[2020-05-06] MEDS: DOCUSATE 100 MG CAP PO SCH (21:36)
[2020-05-06] MEDS: GABAPENTIN 300 MG CAP PO SCH (21:36)
[2020-05-06] MEDS: TOPIRAMATE 25 MG TAB PO SCH (21:36)
[2020-05-06] MEDS: ALBUTEROL NEBULIZED 2.5 MG/3 ML INHALATION PRN (22:12)
[2020-05-07] MEDS: KETOROLAC 15 MG/ML 1 ML VIAL IVP SCH ×3 (00:25→12:30)
[2020-05-07] MEDS: HEPARIN SODIUM,PORCINE 5,000 UNIT/ML 1 ML VIAL SQ SCH ×2 (00:25→09:37)
[2020-05-07] MEDS: SODIUM CHLORIDE 0.9% 1,000 ML IV SCH ×2 (00:34→12:32)
[2020-05-07] MEDS: ALBUTEROL NEBULIZED 2.5 MG/3 ML INHALATION PRN ×2 (07:34→15:10)
[2020-05-07] MEDS ORDERED: ISOSORBIDE MONONITRATE ER 30 MG TAB.ER.24H PO SCH (09:00)
[2020-05-07] MEDS ORDERED: ATORVASTATIN 10 MG TAB PO SCH (09:00)
[2020-05-07] MEDS ORDERED: FLUoxetine HCL 20 MG CAP PO SCH (09:00)
[2020-05-07] MEDS ORDERED: METOPROLOL TARTRATE 25 MG TAB PO SCH (09:00)
[2020-05-07] MEDS ORDERED: POTASSIUM CHLORIDE ER 10 MEQ TAB.ER.PRT PO SCH (09:00)
[2020-05-07] MEDS: TOPIRAMATE 25 MG TAB PO SCH (09:37)
[2020-05-07] MEDS: hydrOXYzine pamoate 25 MG CAP PO SCH (09:37)
[2020-05-07] MEDS: DOCUSATE 100 MG CAP PO SCH (09:37)
[2020-05-07] MEDS: GABAPENTIN 300 MG CAP PO SCH (09:38)
[2020-05-07] MEDS: FAMOTIDINE 20 MG TAB PO SCH (09:38)
[2020-05-07 10:35] VITALS: TEMP 98.1
--- NOTE | 2020-05-07 11:21 | P.CONS ---
History of Present Illness - Reason for Consult Consult date: 05/07/20 Medical management Requesting physician: Rodo Reyes - History of Present Illness HISTORY OF PRESENT ILLNESS This is a 54-year-old female patient at the [facility] with past medical history of COPD, hyperlipidemia, chronic hypoxic respiratory failure on home O2 at 2 L nasal cannula, cervical cancer status post surgical intervention and hysterectomy, recurrent depression, history of tobacco use. Patient states that she had sudden onset of abdominal pain that started 1 day ago. It started under her right ribs into the middle to the umbilical area and gradually moved to the right lower quadrant. She stated that the pain was a 10 out of 10. She was also nauseated without vomiting. No fever or chills. Patient came into [facility] emergency center for evaluation. She was afebrile, heart rate 107, blood pressure 137/82, pulse ox 99% on 2 L nasal cannula. WBC 13, hemoglobin 13.2. Electrolytes normal, creatinine 0.96. Blood sugar 134. Alkaline phosphatase 136 otherwise liver function tests normal. Urinalysis cloudy, protein trace, leukoesterase large, squamous cells 21. Lipase 82. CAT scan of the abdomen and pelvis revealed acute appendicitis. Patient was taken to the OR by Dr. Vickers status post laparoscopic appendectomy and is now seen today on the pediatric unit. Patient denies any new complaints. No fever or chills. No lightheadedness or dizziness. No chest pain. Patient is tolerating a regular diet. REVIEW OF SYSTEMS Constitutional: No fever, no chills, no night sweats. No weight change. No weakness, fatigue or lethargy. No daytime sleepiness. EENT: No headache. No blurred vision or double vision, no loss of vision. No loss of Hearing, no ringing in the ears, no dizziness. No nasal drainage or congestion. No epistaxis. No sore throat. Lungs: No shortness of breath, cough, no sputum production. No wheezing. Cardiovascular: No chest pain, no lower extremity edema. No palpitations. No paroxysmal nocturnal dyspnea. No orthopnea. No lightheadedness or dizziness. No syncopal episodes. Abdominal: Reports abdominal discomfort. No nausea, vomiting. No diarrhea. No constipation. No bloody or tarry stools.. No loss of appetite. Genitourinary: No dysuria, increased frequency, urgency. No urinary retention. Musculoskeletal: No myalgias. No muscle weakness, no gait dysfunction, no frequent falls. No back pain. No neck pain. Integumentary: No wounds, no lesions. No rash or pruritus. No unusual bruising. No change in hair or nails. Neurologic: No aphasia. No facial droop. No change in mentation. No head injury. No headache. No paralysis. No paresthesia. Psychiatric: No depression. No anxiety. No mood swings. Endocrine: No abnormal blood sugars. No weight change. No excessive sweating or thirst. No cold intolerance. SOCIAL HISTORY Patient was smoker of 2 and half packs per day for 43 years and quit 3 years ago. She denies any marijuana, illicit drug use or alcohol use. The patient has nebulizer and home O2. She does not have CPAP. Patient lives alone. She is currently on disability. FAMILY HISTORY Mother is alive at age 83 with history of hypertension. Father from lung cancer at age 83. Patient has 4 brothers and 2 brothers were murdered otherwise she does not know their medical history. Patient's total of 11 sisters and does not know their medical history. She has 4 daughters and 1 son with no major medical problems.. PHYSICAL EXAMINATION Gen: This is a 54-year-old female. Patient is resting in bed appears to be comfortable and in no acute distress. HEENT: Head is atraumatic, normocephalic. Pupils equal, round. Sclerae is anicteric. NECK: Supple. No JVD. No lymphadenopathy. No thyromegaly. LUNGS: Clear to auscultation. No wheezes or rhonchi. No intercostal retractions. HEART: Regular rate and rhythm. No murmur. ABDOMEN: Soft. Bowel sounds are present. No masses. Mild generalized abdominal discomfort. Puncture sites showed no sign of infection. EXTREMITIES: No pedal edema. No calf tenderness. NEUROLOGICAL: Patient is awake, alert and oriented x3. Cranial nerves 2 through 12 are grossly intact. ASSESSMENT AND PLAN 1. Acute appendicitis status post laparoscopic appendectomy. Patient has had no postop complications. Continue current pain management. She is tolerating regular diet. 2. COPD without exacerbation. Continue albuterol as needed. 3. History of tobacco use and dependence, quit 3 years ago. 4. Gastroesophageal reflux disease. Continue Pepcid 20 mg twice daily. 5. Hyperlipidemia. Continue atorvastatin 10 mg daily. 6. Coronary artery disease. Continue Imdur 30 mg daily, Lipitor. 7. Recurrent depression. Continue Seroquel 300 mg at bedtime, Prozac 20 mg daily, gabapentin 600 mg 3 times daily, Topamax 50 mg twice daily. 8. Hypertension. Continue Lopressor 25 mg daily 9. DVT prophylaxis. Heparin subcu. 10. Chronic pain. Continue gabapentin, Zanaflex. Discharge plan: Home. Impression and plan of care have been directed as dictated by the signing physician. Suni Alicea nurse practitioner acting as scribe for signing physician. Past Medical History Past Medical History: Coronary Artery Disease (CAD), Cancer, COPD, GERD/Reflux, Hyperlipidemia, Pneumonia, Renal Disease Additional Past Medical History / Comment(s): PT states recently urine is dark and smells fowl, pt states recently L eye vision change-not as focused, COPD stage III, home oxygen at 2L/NC ATC, pneumonia with sepsis, bronchitis, cervical cancer with surgeries, renal cysts, vitamin D deficiency, chronic low back pain, frequent migraines, hyperglycemia with steroid use.. History of Any Multi-Drug Resistant Organisms: None Reported Past Surgical History: Heart Catheterization, Hysterectomy, Orthopedic Surgery Additional Past Surgical History / Comment(s): Cervix cancer pt had frozen then 2 resections of lesion then hysterectomy, biltaral thumbs tendon surgery.. Past Anesthesia/Blood Transfusion Reactions: No Reported Reaction Smoking Status: Former smoker - Past Family History Mother Family Medical History: Hypertension Additional Family Medical History / Comment(s): Mother is 83 yrs old. Father Family Medical History: Cancer Additional Family Medical History / Comment(s): Father of lung cancer at t he age of 83 yrs old Brother(s) Additional Family Medical History / Comment(s): Patient has 4 brothers and 2 brothers were murdered otherwise she does not know medical history. Patient has 11 sisters and does not know medical history. Patient has 4 daughters and 1 son with no major medical problems. Medications and Allergies Home Medications Medication Instructions Recorded Confirmed Type Atorvastatin [Lipitor] 10 mg PO DAILY 05/05/19 05/06/20 History Isosorbide Mononitrate ER [Imdur] 30 mg PO DAILY 05/05/19 05/06/20 History Metoprolol Tartrate [Lopressor] 25 mg PO DAILY 05/05/19 05/06/20 History Nitroglycerin Sl Tabs [Nitrostat] 0.4 mg SUBLINGUAL Q5M PRN 05/05/19 05/06/20 History Potassium Chloride ER [K-Dur 10] 10 meq PO Q48H 05/05/19 05/06/20 History QUEtiapine FUMARATE [SEROquel] 300 mg PO HS 05/05/19 05/06/20 History Montelukast Sodium [Singulair] 10 mg PO HS 07/21/19 05/06/20 History Albuterol Inhaler [Ventolin Hfa 2 puff INHALATION RT-Q4H PRN 05/06/20 05/06/20 History Inhaler] Butalb/APAP/Caff 50-325-40Mg 1 tab PO Q8H PRN 05/06/20 05/06/20 History [Fioricet 50-325-40] FLUoxetine HCL [PROzac] 20 mg PO DAILY 05/06/20 05/06/20 History Gabapentin 600 mg PO TID 05/06/20 05/06/20 History HYDROcodone/APAP 7.5-325MG [[place] 1 tab PO BID PRN 05/06/20 05/06/20 History 7.5-325] Topiramate [Topamax] 50 mg PO BID 05/06/20 05/06/20 History hydrOXYzine pamoate [Vistaril] 25 mg PO BID 05/06/20 05/06/20 History tiZANidine [Zanaflex] 4 mg PO BID PRN 05/06/20 05/06/20 History Allergies Allergy/AdvReac Type Severity Reaction Status Date / Time codeine AdvReac Nausea & Verified 05/06/20 09:49 Vomiting Physical Exam Vitals: Vital Signs Temp Pulse Pulse Pulse Pulse Resp BP 05/07/20 04:00 98.5 F 80 18 05/07/20 00:30 98.0 F 87 05/06/20 22:22 84 05/06/20 22:13 84 05/06/20 20:30 97.4 F L 89 05/06/20 18:22 84 05/06/20 17:45 70 05/06/20 17:00 74 05/06/20 16:30 75 16 05/06/20 16:15 67 16 05/06/20 16:00 67 14 05/06/20 15:45 98.2 F 66 16 05/06/20 15:15 68 16 05/06/20 15:03 70 16 05/06/20 14:45 70 16 05/06/20 14:30 82 16 05/06/20 14:27 99.1 F 95 16 05/06/20 12:50 98.3 F 87 16 05/06/20 12:19 97.2 F L 91 16 05/06/20 12:15 97.3 F L 91 16 05/06/20 11:37 70 18 139/88 05/06/20 10:24 98.1 F 80 18 144/97 05/06/20 09:49 97.8 F 107 H 18 137/82 BP Pulse Ox 05/07/20 04:00 106/74 98 05/07/20 00:30 108/73 96 05/06/20 22:22 05/06/20 22:13 05/06/20 20:30 101/66 94 L 05/06/20 18:22 110/60 95 05/06/20 17:45 107/70 94 L 05/06/20 17:00 105/71 94 L 05/06/20 16:30 111/76 95 05/06/20 16:15 106/72 95 05/06/20 16:00 112/77 94 L 05/06/20 15:45 106/69 90 L 05/06/20 15:15 115/55 94 L 05/06/20 15:03 115/56 95 05/06/20 14:45 133/63 96 05/06/20 14:30 128/62 100 05/06/20 14:27 139/65 90 L 05/06/20 12:50 143/68 99 05/06/20 12:19 129/62 99 05/06/20 12:15 129/62 99 05/06/20 11:37 100 05/06/20 10:24 97 05/06/20 09:49 99 Intake and Output 05/06/20 05/07/20 05/07/20 22:59 06:59 14:59 Intake Total 530 Output Total 150 Balance 380 Intake: IV 50 Oral 480 Output: Urine 150 Results CBC & Chem 7: 05/06/20 09:58 05/06/20 09:58 Labs: Abnormal Lab Results - Last 24 Hours (Table) 05/06/20 05/06/20 05/06/20 Range/Units 09:58 09:58 09:58 WBC 13.0 H (3.8-10.6) k/uL Neutrophils # 9.3 H (1.3-7.7) k/uL Glucose 134 H (74-99) mg/dL Alkaline Phosphatase 136 H (38-126) U/L Urine Appearance Cloudy H (Clear) Urine Protein Trace H (Negative) Ur Leukocyte Esterase Large H (Negative) Urine WBC 6 H (0-5) /hpf Ur Squamous Epith Cells 21 H (0-4) /hpf Amorphous Sediment Occasional H (None) /hpf Urine Bacteria Rare H (None) /hpf Hyaline Casts 11 H (0-2) /lpf Urine Mucus Few H (None) /hpf
[2020-05-07 12:45] VITALS: RESP 18
--- NOTE | 2020-05-07 15:41 | P.DS ---
<Xochitl Montilla - Last Filed: 05/07/20 15:37> Providers Expected date of discharge: 05/07/20 Hospital Course: Discharge diagnosis 1. Acute appendicitis status post laparoscopic appendectomy Hospital course This is a 54-year-old female that presented to the ER complaining of pain that began in the upper mid abdomen but has radiated down to the right lower quadrant. Patient's CAT scan shows acute appendicitis. White count was elevated at 13. Patient underwent laparoscopic appendectomy for acute appendicitis with Dr. Reyes. Patient tolerated surgery well. She tolerated been spelled diet. She is passing gas. She has been up and ambulating. She is afebrile. She is stable for discharge home. Physician Ent Surgeon note has been reviewed by physician. Signing provider agrees with the documented findings, assessment, and plan of care. Patient Condition at Discharge: Stable Plan - Discharge Summary Discharge Rx Participant: No New Discharge Prescriptions: New Docusate [Colace] 100 mg PO BID #30 cap Continue QUEtiapine FUMARATE [SEROquel] 300 mg PO HS Potassium Chloride ER [K-Dur 10] 10 meq PO Q48H Nitroglycerin Sl Tabs [Nitrostat] 0.4 mg SUBLINGUAL Q5M PRN PRN Reason: Chest Pain Metoprolol Tartrate [Lopressor] 25 mg PO DAILY Isosorbide Mononitrate ER [Imdur] 30 mg PO DAILY Atorvastatin [Lipitor] 10 mg PO DAILY Montelukast Sodium [Singulair] 10 mg PO HS hydrOXYzine pamoate [Vistaril] 25 mg PO BID Albuterol Inhaler [Ventolin Hfa Inhaler] 2 puff INHALATION RT-Q4H PRN PRN Reason: Shortness Of Breath Topiramate [Topamax] 50 mg PO BID HYDROcodone/APAP 7.5-325MG [[place] 7.5-325] 1 tab PO BID PRN PRN Reason: Pain tiZANidine [Zanaflex] 4 mg PO BID PRN PRN Reason: Muscle Spasm Gabapentin 600 mg PO TID Butalb/APAP/Caff 50-325-40Mg [Fioricet 50-325-40] 1 tab PO Q8H PRN PRN Reason: Migraine Headache FLUoxetine HCL [PROzac] 20 mg PO DAILY Discharge Medication List Atorvastatin [Lipitor] 10 mg PO DAILY 05/05/19 [History] Isosorbide Mononitrate ER [Imdur] 30 mg PO DAILY 05/05/19 [History] Metoprolol Tartrate [Lopressor] 25 mg PO DAILY 05/05/19 [History] Nitroglycerin Sl Tabs [Nitrostat] 0.4 mg SUBLINGUAL Q5M PRN 05/05/19 [History] Potassium Chloride ER [K-Dur 10] 10 meq PO Q48H 05/05/19 [History] QUEtiapine FUMARATE [SEROquel] 300 mg PO HS 05/05/19 [History] Montelukast Sodium [Singulair] 10 mg PO HS 07/21/19 [History] Albuterol Inhaler [Ventolin Hfa Inhaler] 2 puff INHALATION RT-Q4H PRN 05/06/20 [History] Butalb/APAP/Caff 50-325-40Mg [Fioricet 50-325-40] 1 tab PO Q8H PRN 05/06/20 [History] FLUoxetine HCL [PROzac] 20 mg PO DAILY 05/06/20 [History] Gabapentin 600 mg PO TID 05/06/20 [History] HYDROcodone/APAP 7.5-325MG [[place] 7.5-325] 1 tab PO BID PRN 05/06/20 [History] Topiramate [Topamax] 50 mg PO BID 05/06/20 [History] hydrOXYzine pamoate [Vistaril] 25 mg PO BID 05/06/20 [History] tiZANidine [Zanaflex] 4 mg PO BID PRN 05/06/20 [History] Docusate [Colace] 100 mg PO BID #30 cap 05/07/20 [Rx] Follow up Appointment(s)/Referral(s): Rodo Reyes MD [Medical Doctor] - 1 Week [facility] [Primary Care Provider] - 1-2 days Patient Instructions/Handouts: Laparoscopic Appendectomy (DC) Activity/Diet/Wound Care/Special Instructions: ATTN DISCHARGE NURSEPT HAS HER HOME MEDS LOCKED UP IN PHARMACYSLIP TO RETRIEVE IS IN HER CHART If patient needs refills of [place] she is to get prescription from her pain medicine physician No driving while taking [place] No lifting over 10 pounds You may shower. No soaking or tub baths for 2 weeks Very light activity until you are reevaluated at your follow up appointment with your surgeon Diet regular Discharge Disposition: HOME SELF-CARE <Rodo Reyes - Last Filed: 05/07/20 15:43> Providers Date of admission: 05/06/20 11:34 Attending physician: Rodo Reyes Consults: 05/07/20 08:18 Consult Physician Routine Consulting Provider: Luis Barney Consult Reason/Comments: medical management Do you want consulting provider notified?: Yes Primary care physician: [facility] - Discharge Diagnosis(es) (1) Appendicitis Current Visit: Yes Status: Acute Hospital Course: As above. Patient doing well. May discharge today.
--- NOTE | 2020-05-07 15:42 | P.OP ---
Date of Procedure: 05/06/20 Procedure(s) Performed: PREOPERATIVE DIAGNOSIS: Acute appendicitis POSTOPERATIVE DIAGNOSIS: Same PROCEDURE: Laparoscopic appendectomy SURGEON: Eric EBL: 5 mL ANESTHESIA: General COMPLICATIONS: None OPERATIVE PROCEDURE: The patient was brought and placed on the operating table in the supine position. The patient was placed under general anesthesia. The abdomen was prepped and draped in the usual sterile fashion. A small vertical infraumbilical incision was made. The fascia was retracted anteriorly with Zoila forceps. The Veress needle was advanced into the peritoneal cavity. The saline drop test was normal. Insufflation took place to 15 mmHg. A 5 mm trocar was then placed. An additional 5 mm suprapubic trocar was placed under direct visualization as well as a 12 mm left lower quadrant trocar under direct visualization. The appendix was inspected. It was acutely inflamed. The mesoappendix was dissected. The base of the appendix was divided using a linear 45 mm intestinal stapler. The mesentery itself was divided using the LigaSure device. The area was then irrigated. No further purulence or bleeding was seen. The appendix was brought out of the peritoneal cavity through the left lower quadrant trocar site using an Endo Catch bag. The fascia at the 12 mm site was closed using a [id number] 0 Vicryl stitch. The skin at all 3 sites was closed using 4-0 Monocryl sutures. Skin glue was then applied. DISPOSITION: Stable to recovery room
[2020-05-07 15:48] VITALS: BP 96/66; PULSE 96
== END 2020-05-07 16:59 | disposition home or self-care (01) ==
LOC: EC 09:48 → 6PED 11:34
PROVIDERS: ADMIT Surgery; ATTEND Surgery
DX: K35.80 Unspecified acute appendicitis (principal); J44.9 Chronic obstructive pulmonary disease, unspecified; Z87.891 Personal history of nicotine dependence; J96.11 Chronic respiratory failure with hypoxia; Z99.81 Dependence on supplemental oxygen; E55.9 Vitamin D deficiency, unspecified; G89.29 Other chronic pain; M54.5 Low back pain; G43.909 Migraine, unspecified, not intractable, without status migrainosus; R73.9 Hyperglycemia, unspecified; I25.10 Atherosclerotic heart disease of native coronary artery without angina pectoris; I10 Essential (primary) hypertension; Z87.09 Personal history of other diseases of the respiratory system; Z85.41 Personal history of malignant neoplasm of cervix uteri; Z90.710 Acquired absence of both cervix and uterus; Z98.890 Other specified postprocedural states; F41.9 Anxiety disorder, unspecified; F32.9 Major depressive disorder, single episode, unspecified; F43.10 Post-traumatic stress disorder, unspecified; Z82.49 Family history of ischemic heart disease and other diseases of the circulatory system; Z80.1 Family history of malignant neoplasm of trachea, bronchus and lung; K21.9 Gastro-esophageal reflux disease without esophagitis; E78.5 Hyperlipidemia, unspecified; Z87.01 Personal history of pneumonia (recurrent); N28.9 Disorder of kidney and ureter, unspecified; Z86.19 Personal history of other infectious and parasitic diseases; Z79.82 Long term (current) use of aspirin; Z79.51 Long term (current) use of inhaled steroids; Z79.52 Long term (current) use of systemic steroids; Z79.899 Other long term (current) drug therapy; Z88.5 Allergy status to narcotic agent
CPT/HCPCS: 96361; 96374; 96375; 99285; 36415; 94640 ×3; 86900; 86901; 88304; 80053; 82150; 83690; 85025; 85610; 85730; 86850; 81001; 87040; 74177; 44970; G0378 ×2; J2543; J2250; J1644 ×2; J1100; J2710; J2405; J2001; J3010; J1885 ×2; J0330; J2704; J1170; Q9967

== ENCOUNTER → 2020-05-27 | Outpatient (CLI) | payer OTHER ==
--- NOTE | 2020-05-27 11:08 | FL ---
EXAMINATION TYPE: FL barium swallow DATE OF EXAM: 05/27/2020 CLINICAL HISTORY: History of COPD presents with increasing dysphagia causing some vomiting TECHNIQUE: A double contrast esophagram is performed utilizing air and barium. A total of 20 second s of fluoroscopic time was utilized during procedure. 62 spot images saved to PACS station. COMPARISON: CT chest July 21, 2019 FINDINGS: The esophagus shows satisfactory motility and emptying into the stomach. No evidence of fi xed hiatal hernia or stricture noted. Some dysmotility present when patient drinking in prone positio n. No significant gastroesophageal reflux was seen during real time performance of this study. IMPRESSION: No obvious mass or stricture to account for patient's symptoms.
== END | disposition home or self-care (01) ==
LOC: RADUSWWP 09:25
PROVIDERS: ATTEND Surgery
DX: R07.9 Chest pain, unspecified (principal)
CPT/HCPCS: 74220

== ENCOUNTER 2020-06-17 09:33 | Observation (INO) | payer OTHER ==
[2020-06-17] MEDS ORDERED: NITROGLYCERIN SL TABS 0.4 MG TAB SUBLINGUAL STA ×3 (10:01)
[2020-06-17] MEDS ORDERED: ASPIRIN 81 MG PO STA (10:01)
--- NOTE | 2020-06-17 10:04 | ED ---
General Adult HPI - General Chief complaint: Chest Pain Stated complaint: chest pain Time Seen by Provider: 06/17/20 09:37 Source: patient, EMS, RN notes reviewed Mode of arrival: EMS Limitations: no limitations - History of Present Illness Initial comments: Patient is a pleasant 54-year-old female presenting to the emergency Department with complaints of chest discomfort. Symptoms have been waxing and waning for the past couple of weeks. Occasional palpitations and monitors her heart rate as high as 140. Discomfort currently 7/10. Discomfort is sternal region. Patient does have some right arm discomfort as well. Patient has exertional dyspnea and fatigue. Occasional nausea. Occasional sweating. No history of similar symptoms previously. No leg pain or leg swelling. - Related Data Home Medications Medication Instructions Recorded Confirmed Atorvastatin [Lipitor] 10 mg PO DAILY 05/05/19 06/17/20 Isosorbide Mononitrate ER [Imdur] 30 mg PO DAILY 05/05/19 06/17/20 Metoprolol Tartrate [Lopressor] 25 mg PO DAILY 05/05/19 06/17/20 Nitroglycerin Sl Tabs [Nitrostat] 0.4 mg SUBLINGUAL Q5M PRN 05/05/19 06/17/20 Potassium Chloride ER [K-Dur 10] 10 meq PO Q48H 05/05/19 06/17/20 QUEtiapine FUMARATE [SEROquel] 300 mg PO HS 05/05/19 06/17/20 Montelukast Sodium [Singulair] 10 mg PO HS 07/21/19 06/17/20 Albuterol Inhaler [Ventolin Hfa 2 puff INHALATION RT-Q4H PRN 05/06/20 06/17/20 Inhaler] Butalb/APAP/Caff 50-325-40Mg 1 tab PO Q8H PRN 05/06/20 06/17/20 [Fioricet 50-325-40] FLUoxetine HCL [PROzac] 20 mg PO DAILY 05/06/20 06/17/20 Gabapentin 600 mg PO TID 05/06/20 06/17/20 HYDROcodone/APAP 7.5-325MG [[place] 1 tab PO BID PRN 05/06/20 06/17/20 7.5-325] Topiramate [Topamax] 50 mg PO BID 05/06/20 06/17/20 hydrOXYzine pamoate [Vistaril] 25 mg PO BID 05/06/20 06/17/20 tiZANidine [Zanaflex] 4 mg PO BID PRN 05/06/20 06/17/20 Aspirin EC [Ecotrin Low Dose] 81 mg PO DAILY 06/17/20 06/17/20 Calcium Carbonate/Vitamin D3 1 tab PO BID 06/17/20 06/17/20 [Calcium 600-Vit D3 200 Tablet] Cholecalciferol [Vitamin D3 (25 5,000 unit PO DAILY 06/17/20 06/17/20 Mcg = 1000 Iu)] Fluticasone/Salmeterol 1 puff INHALATION RT-BID 06/17/20 06/17/20 [Fluticasone-Salmeterol 232-14] Furosemide [Lasix] 20 mg PO Q48H 06/17/20 06/17/20 Multivitamins, Thera [Multivitamin 1 tab PO DAILY 06/17/20 06/17/20 (formulary)] Previous Rx's Medication Instructions Recorded Docusate [Colace] 100 mg PO BID #30 cap 05/07/20 Allergies Allergy/AdvReac Type Severity Reaction Status Date / Time codeine AdvReac Nausea & Verified 06/17/20 11:17 Vomiting Review of Systems ROS Statement: Those systems with pertinent positive or pertinent negative responses have been documented in the HPI. ROS Other: All systems not noted in ROS Statement are negative. Constitutional: Denies: fever Eyes: Denies: eye pain ENT: Denies: ear pain Respiratory: Reports: as per HPI Cardiovascular: Reports: as per HPI, chest pain, palpitations Endocrine: Reports: as per HPI, fatigue Gastrointestinal: Reports: nausea Genitourinary: Denies: dysuria Musculoskeletal: Denies: back pain Skin: Denies: rash Neurological: Denies: weakness Past Medical History Past Medical History: Coronary Artery Disease (CAD), Cancer, COPD, GERD/Reflux, Hyperlipidemia, Pneumonia, Renal Disease Additional Past Medical History / Comment(s): PT states recently urine is dark and smells fowl, pt states recently L eye vision change-not as focused, COPD stage III, home oxygen at 2L/NC ATC, pneumonia with sepsis, bronchitis, cervical cancer with surgeries, renal cysts, vitamin D deficiency, chronic low back pain, frequent migraines, hyperglycemia with steroid use.. History of Any Multi-Drug Resistant Organisms: None Reported Past Surgical History: Heart Catheterization, Hysterectomy, Orthopedic Surgery Additional Past Surgical History / Comment(s): Cervix cancer pt had frozen then 2 resections of lesion then hysterectomy, biltaral thumbs tendon surgery.. Past Anesthesia/Blood Transfusion Reactions: No Reported Reaction Past Psychological History: Anxiety, Depression, PTSD Smoking Status: Former smoker - Past Family History Mother Family Medical History: Hypertension Additional Family Medical History / Comment(s): Mother is 83 yrs old. Father Family Medical History: Cancer Additional Family Medical History / Comment(s): Father of lung cancer at the age of 83 yrs old Brother(s) Additional Family Medical History / Comment(s): Patient has 4 brothers and 2 brothers were murdered otherwise she does not know medical history. Patient has 11 sisters and does not know medical history. Patient has 4 daughters and 1 son with no major medical problems. General Exam Limitations: no limitations General appearance: alert, in no apparent distress Head exam: Present: normocephalic Eye exam: Present: normal appearance Neck exam: Present: normal inspection Respiratory exam: Present: normal lung sounds bilaterally. Absent: chest wall tenderness Cardiovascular Exam: Present: regular rate, normal rhythm Expanded Peripheral pulses: 2+: Radial (R), Radial (L), Posterior Tibialis (R), Posterior Tibialis (L) GI/Abdominal exam: Present: soft. Absent: tenderness Extremities exam: Present: normal inspection. Absent: pedal edema, calf tenderness Neurological exam: Present: alert Psychiatric exam: Present: normal affect, normal mood Skin exam: Present: normal color Course Vital Signs 06/17/20 06/17/20 06/17/20 09:35 10:42 12:35 Temperature 98.1 F Pulse Rate 85 85 92 Respiratory 18 18 18 Rate Blood Pressure 128/84 104/71 96/75 O2 Sat by Pulse 100 99 100 Oximetry EKG Findings - EKG Comments: EKG Findings:: Normal sinus rhythm 86. VA 180. QRS 70. QT 384. QTC 459. Normal axis. Low QRS voltage. T-wave inversion leads V1 through V4. Reviewed previous EKG dated 07/21/2019. Medical Decision Making - Medical Decision Making Patient reevaluated and resting comfortably in bed, improved. Patient updated on results and plan. Case was discussed in detail with Dr. Barney, [facility] and will admit. - Lab Data Result diagrams: 06/17/20 10:00 06/17/20 10:00 Lab Results 06/17/20 06/17/20 06/17/20 Range/Units 10:00 10:00 10:00 WBC 6.9 (3.8-10.6) k/uL RBC 4.21 (3.80-5.40) m/uL Hgb 13.1 (11.4-16.0) gm/dL Hct 41.9 (34.0-46.0) % MCV 99.5 (80.0-100.0) fL MCH 31.2 (25.0-35.0) pg MCHC 31.4 (31.0-37.0) g/dL RDW 12.7 (11.5-15.5) % Plt Count 301 (150-450) k/uL Neutrophils % 63 % Lymphocytes % 29 % Monocytes % 6 % Eosinophils % 1 % Basophils % 1 % Neutrophils # 4.3 (1.3-7.7) k/uL Lymphocytes # 2.0 (1.0-4.8) k/uL Monocytes # 0.4 (0-1.0) k/uL Eosinophils # 0.1 (0-0.7) k/uL Basophils # 0.1 (0-0.2) k/uL PT 9.5 (9.0-12.0) sec INR 0.9 (<1.2) APTT 21.6 L (22.0-30.0) sec D-Dimer 0.44 (<0.60) mg/L FEU Sodium 137 (137-145) mmol/L Potassium 4.5 (3.5-5.1) mmol/L Chloride 104 (98-107) mmol/L Carbon Dioxide 26 (22-30) mmol/L Anion Gap 7 mmol/L BUN 13 (7-17) mg/dL Creatinine 1.23 H (0.52-1.04) mg/dL Est GFR (CKD-EPI)AfAm 58 (>60 ml/min/1.73 sqM) Est GFR (CKD-EPI)NonAf 50 (>60 ml/min/1.73 sqM) Glucose 91 (74-99) mg/dL Calcium 9.5 (8.4-10.2) mg/dL Magnesium 2.3 (1.6-2.3) mg/dL Total Bilirubin 0.4 (0.2-1.3) mg/dL AST 38 H (14-36) U/L ALT 27 (4-34) U/L Alkaline Phosphatase 163 H (38-126) U/L Troponin I (0.000-0.034) ng/mL Total Protein 7.3 (6.3-8.2) g/dL Albumin 4.1 (3.5-5.0) g/dL 06/17/20 Range/Units 10:00 WBC (3.8-10.6) k/uL RBC (3.80-5.40) m/uL Hgb (11.4-16.0) gm/dL Hct (34.0-46.0) % MCV (80.0-100.0) fL MCH (25.0-35.0) pg MCHC (31.0-37.0) g/dL RDW (11.5-15.5) % Plt Count (150-450) k/uL Neutrophils % % Lymphocytes % % Monocytes % % Eosinophils % % Basophils % % Neutrophils # (1.3-7.7) k/uL Lymphocytes # (1.0-4.8) k/uL Monocytes # (0-1.0) k/uL Eosinophils # (0-0.7) k/uL Basophils # (0-0.2) k/uL PT (9.0-12.0) sec INR (<1.2) APTT (22.0-30.0) sec D-Dimer (<0.60) mg/L FEU Sodium (137-145) mmol/L Potassium (3.5-5.1) mmol/L Chloride (98-107) mmol/L Carbon Dioxide (22-30) mmol/L Anion Gap mmol/L BUN (7-17) mg/dL Creatinine (0.52-1.04) mg/dL Est GFR (CKD-EPI)AfAm (>60 ml/min/1.73 sqM) Est GFR (CKD-EPI)NonAf (>60 ml/min/1.73 sqM) Glucose (74-99) mg/dL Calcium (8.4-10.2) mg/dL Magnesium (1.6-2.3) mg/dL Total Bilirubin (0.2-1.3) mg/dL AST (14-36) U/L ALT (4-34) U/L Alkaline Phosphatase (38-126) U/L Troponin I <0.012 (0.000-0.034) ng/mL Total Protein (6.3-8.2) g/dL Albumin (3.5-5.0) g/dL - Radiology Data Radiology results: image reviewed (Chest x-ray shows no acute process) Disposition Clinical Impression: Chest pain Disposition: ADMITTED IP TO THIS HOSP Is patient prescribed a controlled substance at d/c from ED?: No Referrals: [facility] [Primary Care Provider] - 1-2 days Decision Time: 12:51
[2020-06-17 10:28] LABS: Basophils # (A) 0.1 k/uL (0-0.2); Basophils % (A) 1 %; Eosinophils # (A) 0.1 k/uL (0-0.7); Eosinophils % (A) 1 %; HCT 41.9 % (34.0-46.0); HGB 13.1 gm/dL (11.4-16.0); Lymphocytes % (A) 29 %; MCH 31.2 pg (25.0-35.0); MCHC 31.4 g/dL (31.0-37.0); MCV 99.5 fL (80.0-100.0); Mean Platelet Volume 7.4; Monocytes # (A) 0.4 k/uL (0-1.0); Monocytes % (A) 6 %; Neutrophils # (A) 4.3 k/uL (1.3-7.7); Neutrophils % (A) 63 %; Platelet Count 301 k/uL (150-450); RBC 4.21 m/uL (3.80-5.40); RDW 12.7 % (11.5-15.5); WBC 6.9 k/uL (3.8-10.6)
[2020-06-17 10:43] LABS: Albumin 4.1 g/dL (3.5-5.0); Calcium 9.5 mg/dL (8.4-10.2); Magnesium 2.3 mg/dL (1.6-2.3); Potassium 4.5 mmol/L (3.5-5.1); Total Bilirubin 0.4 mg/dL (0.2-1.3); Total Protein 7.3 g/dL (6.3-8.2)
[2020-06-17 10:59] LABS: D-Dimer 0.44 mg/L FEU (<0.60); INR 0.9 (<1.2); Prothrombin Time 9.5 sec (9.0-12.0)
[2020-06-17 11:04] LABS: Partial Thromboplastin Time 21.6 sec (22.0-30.0)
--- NOTE | 2020-06-17 11:22 | XR ---
EXAMINATION TYPE: XR chest 2V DATE OF EXAM: 06/17/2020 COMPARISON: Prior chest x-ray 07/21/2019 HISTORY: Chest pain TECHNIQUE: Frontal and lateral views of the chest are obtained. FINDINGS: There is no focal air space opacity, pleural effusion, or pneumothorax seen. The cardiac silhouette size is within normal limits. There are overlying artifacts. The osseous structures are i ntact. IMPRESSION: No acute cardiopulmonary process.
[2020-06-17] MEDS ORDERED: NITROGLYCERIN SL TABS 0.4 MG TAB SUBLINGUAL PRN ×2 (12:52→17:10)
[2020-06-17] MEDS ORDERED: ACETAMINOPHEN TAB 325 MG TAB PO PRN (15:41)
[2020-06-17] MEDS ORDERED: BUTALB/APAP/CAFF 50-325-40MG TAB PO PRN (17:10)
[2020-06-17] MEDS ORDERED: ALBUTEROL NEBULIZED 2.5 MG/3 ML INHALATION PRN (17:10)
[2020-06-17] MEDS ORDERED: tiZANidine 4 MG TAB PO PRN (17:10)
[2020-06-17] MEDS ORDERED: HYDROcodone/APAP 7.5-325MG 1 EACH TAB PO PRN (17:10)
[2020-06-17] MEDS ORDERED: NITROGLYCERIN OINT 1 INCH/GM PACKET TOPICAL SCH (18:00)
[2020-06-17] MEDS: CALCIUM CARB-VIT D 500MG-200UN 1 EACH TAB PO SCH (20:19)
[2020-06-17] MEDS: hydrOXYzine pamoate 25 MG CAP PO SCH (20:19)
[2020-06-17] MEDS: DOCUSATE 100 MG CAP PO SCH (20:19)
[2020-06-17] MEDS: TOPIRAMATE 25 MG TAB PO SCH (20:20)
[2020-06-17] MEDS ORDERED: QUEtiapine 100 MG TAB PO SCH (21:00)
[2020-06-17] MEDS ORDERED: MONTELUKAST 10 MG TAB PO SCH (21:00)
[2020-06-17] MEDS: SYMBICORT 160-4.5 MCG INHALER INHALATION SCH (21:12)
--- NOTE | 2020-06-17 21:21 | P.HPIM ---
History of Present Illness H&P Date: 06/17/20 Chief Complaint: Unstable angina, recurrent chest pain, palpitation, change in blood pressur 54-year-old mildly overweight [facility] with past medical history of CAD with mild blockage found on angiogram was done in early 2019, also known to have history of COPD, history of hypertension and hyperlipidemia was hospitalized in [facility] in 1916 2023 acute appendicitis post appendectomy has done well ended up being discharged home after 48 hours successfully with no major problem. Patient presented to the emergency department at [facility] today complaining of recurrent chest pain on and off in the midsternal area radiating toward the left upper side of her chest wall and shoulder area associated with significant shortness of breath mild lightheadedness and dizziness with nausea with no vomiting significant change in blood pressure. Patient apparently was diagnosed with mild coronary artery disease in 2019 the angiogram after positive stress test. Patient was on medical management did not require any angioplasty or stent placement. According to her activity has been significantly decreased lately with worsening symptom with minimum exertion also her blood pressure fluctuated and sometimes quite bit low causing her to be lightheaded and dizzy with exertion along with a chest pain happening same time. Review of Systems CONSTITUTIONAL: Well-developed no acute respiratory distress. EYES: No icterus sclerae, no conjunctivitis. EARS, NOSE, MOUTH, THROAT, and FACE: No sore throat, lymphadenopathy, carotid bruits or deformity. RESPIRATORY: Positive shortness of breath and COPD. CARDIOVASCULAR: Positive CP, Palpitation, PND, and Orthopnea with recurrent angina with significant drop in blood pressure. GASTROINTESTINAL: Positive Abd pain with Nausea without vomiting, no Diarrhea or constipation, No GI Bleed, no distention or masses. GENITOURINARY: Negative for Hematuria or UTI, no kidney stones. INTEGUMENT/BREAST: Generalized fibromyalgia and generalized arthralgias well. HEMATOLOGIC/LYMPHATIC: Negative for bleed or purpura. MUSCULOSKELTAL: Negative for Myalgia or arthralgia. Generalized muscle and joint pain. NEURLOGICAL: No LOC, Sz or syncope, blurred vision dizziness or abnormality.. BEHAVIORAL/PSYCH: Negative. ENDOCRINE: Negative. Social history: Patient smokes doing a pack-a-day for 43 years quit 3 years ago she denies any marijuana use no alcohol abuse patient had nebulizer and O2 at home does not have any CPAP or BiPAP she is currently on disability and lives alone. Family history: Mother is living in her late 80 has hypertension, father from lung considered 83, patient had 4 brothers 2 of them were mother otherwise no major health history with her 2 other brothers, patient had 11 sister does not know much about her medical history. Patient has 4 daughters and one son are all living and well Past Medical History Past Medical History: Coronary Artery Disease (CAD), Cancer, COPD, GERD/Reflux, Hyperlipidemia, Pneumonia, Renal Disease Additional Past Medical History / Comment(s): Pt states lately L eye vision has change-not as focused, COPD, home oxygen at 2L/NC ATC, pneumonia with sepsis, bronchitis, cervical cancer with surgeries, renal cysts, vitamin D deficiency, chronic low back pain, frequent migraines, insomnia, hyperglycemia with steroid use.. History of Any Multi-Drug Resistant Organisms: None Reported Past Surgical History: Appendectomy, Heart Catheterization, Hysterectomy, Orthopedic Surgery Additional Past Surgical History / Comment(s): Cervix cancer pt had frozen then 2 resections of lesion then hysterectomy, biltaral thumbs tendon surgery.. Past Anesthesia/Blood Transfusion Reactions: No Reported Reaction Smoking Status: Former smoker - Past Family History Mother Family Medical History: Hypertension Additional Family Medical History / Comment(s): Mother is 84 yrs old. Father Family Medical History: Cancer Additional Family Medical History / Comment(s): Father of lung cancer at the age of 83 yrs old Brother(s) Additional Family Medical History / Comment(s): Patient has 4 brothers and 2 brothers were murdered otherwise she does not know medical history. Patient has 11 sisters and does not know medical history. Patient has 4 daughters and 1 son with no major medical problems. Medications and Allergies Home Medications Medication Instructions Recorded Confirmed Type Atorvastatin [Lipitor] 10 mg PO DAILY 05/05/19 06/17/20 History Isosorbide Mononitrate ER [Imdur] 30 mg PO DAILY 05/05/19 06/17/20 History Metoprolol Tartrate [Lopressor] 25 mg PO DAILY 05/05/19 06/17/20 History Nitroglycerin Sl Tabs [Nitrostat] 0.4 mg SUBLINGUAL Q5M PRN 05/05/19 06/17/20 History Potassium Chloride ER [K-Dur 10] 10 meq PO Q48H 05/05/19 06/17/20 History QUEtiapine FUMARATE [SEROquel] 300 mg PO HS 05/05/19 06/17/20 History Montelukast Sodium [Singulair] 10 mg PO HS 07/21/19 06/17/20 History Albuterol Inhaler [Ventolin Hfa 2 puff INHALATION RT-Q4H PRN 05/06/20 06/17/20 History Inhaler] Butalb/APAP/Caff 50-325-40Mg 1 tab PO Q8H PRN 05/06/20 06/17/20 History [Fioricet 50-325-40] FLUoxetine HCL [PROzac] 20 mg PO DAILY 05/06/20 06/17/20 History Gabapentin 600 mg PO TID 05/06/20 06/17/20 History HYDROcodone/APAP 7.5-325MG [[place] 1 tab PO BID PRN 05/06/20 06/17/20 History 7.5-325] Topiramate [Topamax] 50 mg PO BID 05/06/20 06/17/20 History hydrOXYzine pamoate [Vistaril] 25 mg PO BID 05/06/20 06/17/20 History tiZANidine [Zanaflex] 4 mg PO BID PRN 05/06/20 06/17/20 History Docusate [Colace] 100 mg PO BID #30 cap 05/07/20 06/17/20 Rx Aspirin EC [Ecotrin Low Dose] 81 mg PO DAILY 06/17/20 06/17/20 History Calcium Carbonate/Vitamin D3 1 tab PO BID 06/17/20 06/17/20 History [Calcium 600-Vit D3 200 Tablet] Cholecalciferol [Vitamin D3 (25 5,000 unit PO DAILY 06/17/20 06/17/20 History Mcg = 1000 Iu)] Fluticasone/Salmeterol 1 puff INHALATION RT-BID 06/17/20 06/17/20 History [Fluticasone-Salmeterol 232-14] Furosemide [Lasix] 20 mg PO Q48H 06/17/20 06/17/20 History Multivitamins, Thera [Multivitamin 1 tab PO DAILY 06/17/20 06/17/20 History (formulary)] Allergies Allergy/AdvReac Type Severity Reaction Status Date / Time codeine AdvReac Nausea & Verified 06/17/20 11:17 Vomiting Physical Exam Vitals: Vital Signs Temp Pulse Pulse Resp BP BP Pulse Ox 06/17/20 15:15 98.0 F 94 18 100/55 100 06/17/20 15:00 94 18 06/17/20 14:50 98.7 F 85 18 104/79 99 06/17/20 12:35 92 18 96/75 100 06/17/20 10:42 85 18 104/71 99 06/17/20 09:35 98.1 F 85 18 128/84 100 Intake and Output 06/17/20 06/17/20 06/17/20 06:59 14:59 22:59 Other: Voiding Method Toilet Weight 105.233 kg General Appearance: Alert, cooperative, no distress, appears stated age. Neck HEENT: Supple, no lymphadenopathy, no thyroid enlargement, no carotid bruits. Lungs: Decreased breaths on bilaterally with fine rhonchi has mild crackles in the bases. Chest Wall: Decrease expansion with deep inspiration no tenderness and no deformity was found on exam, no costochondral pain or discomfort. No sign of chest wall pain or discomfort. Heart: Regular rate and rhythm, S1, S2 normal, no murmur, rub or gallop. Back: Symmetric, no curvature, ROM normal, no CVA tenderness. Abdomen: Soft, non-tender, bowel sounds active all four quadrants, no masses, no organomegaly. Extremities: Extremities normal, atraumatic, no cyanosis or edema. Mild arthralgia in both knees. Pulses: 2+ and symmetric. Skin: Skin color, texture, tugor normal, no rashes or lesions. Neurologic: Alert oriented x3 cranial nerves II through XII intact, no motor deficit, no abnormal balance or gait. Results CBC & Chem 7: 06/17/20 10:00 06/17/20 10:00 Labs: Abnormal Lab Results - Last 24 Hours (Table) 06/17/20 06/17/20 Range/Units 10: 10:00 APTT 21.6 L (22.0-30.0) sec Creatinine 1.23 H (0.52-1.04) mg/dL AST 38 H (14-36) U/L Alkaline Phosphatase 163 H (38-126) U/L Thrombosis Risk Factor Assmnt - DVT/VTE Prophylaxis DVT/VTE Prophylaxis: Pharmacologic Prophylaxis ordered, Mechanical Prophylaxis ordered - Choose All That Apply Any of the Below Risk Factors Present?: Yes Each Factor Represents 1 point: Abnormal pulmonary function (COPD), Age 41-60 years, Obesity (BMI >25), Serious lung disease incl. pneumonia (< 1month) Other Risk Factors: Yes Each Risk Factor Represents 2 Points: Malignancy Other congenital or acquired thrombophilia - If yes, enter type in comment: No Thrombosis Risk Factor Assessment Total Risk Factor Score: 6 Thrombosis Risk Factor Assessment Level: High Risk Assessment and Plan Assessment: 1 unstable angina: With patient's current symptoms patient was hospitalized continue CK with troponin 3 continue secondary prevention with isosorbide, Lipitor, metoprolol along with aspirin. Will do another echocardiogram if any significant abnormality or change patient will require heart cath otherwise his last nuclear stress test in October 2018 was very abnormal patient apparently had positive heart catheter at the time but require any medical management whether patient has more medical blockage or not is to be determined. 2 significant dyspnea and shortness of breath: Continue patient on current medication with multiple a cast Ventolin steroid inhaler along with O2 on chris nue basis if needed will add smaller dose of steroid. 3 COPD with mild exacerbation continue current management. 4 hypertension: Patient remain on metoprolol 25 mg daily. 5 hyperlipidemia: On Lipitor 10 mg a day. 6 mild arrhythmia: Remain on beta tripp with metoprolol 25 mg a day. 7 chronic bipolar disorders: Remain on circumflex well 300 mg daily at bedtime along with Prozac 20 mg daily and Topamax 50 mg twice a day. 8 chronic edema: Remain on furosemide 20 mg every 2 days. 9 chronic headache and recurrent migraine: Remain on Urised along with Topamax hydrocodone and Zanaflex. 10 GI prophylaxis: Patient be on pantoprazole. 11 DVT prophylaxis: Early mobilization and knee-high [place] hose. CODE STATUS: Full code. Admit patient to observation for 1-2 nights stay.
[2020-06-17] MEDS: GABAPENTIN 300 MG CAP PO SCH (21:24)
[2020-06-18 04:38] VITALS: TEMP 97.5
[2020-06-18 07:17] LABS: Cholesterol 292 mg/dL (<200); HDL Cholesterol 58 mg/dL (40-60); LDL Cholesterol,Calculated 206 mg/dL (0-99); Triglycerides 141 mg/dL (<150)
[2020-06-18 07:58] VITALS: BP 110/73; PULSE 79; RESP 18
[2020-06-18] MEDS: SYMBICORT 160-4.5 MCG INHALER INHALATION SCH (08:02)
[2020-06-18] MEDS ORDERED: DOBUTamine DRIP for NUC MED 500 MG in DEXTROSE/WATER 1 250ML.BAG IV ONE (08:30)
[2020-06-18] MEDS ORDERED: METOPROLOL TARTRATE 25 MG TAB PO SCH (09:00)
[2020-06-18] MEDS ORDERED: FLUoxetine HCL 20 MG CAP PO SCH (09:00)
[2020-06-18] MEDS ORDERED: MULTIVITAMINS, THERA 1 EACH TAB PO SCH (09:00)
[2020-06-18] MEDS ORDERED: ASPIRIN 81 MG PO SCH (09:00)
[2020-06-18] MEDS ORDERED: ASPIRIN 325 MG TAB PO SCH (09:00)
[2020-06-18] MEDS ORDERED: ATORVASTATIN 10 MG TAB PO SCH (09:00)
[2020-06-18] MEDS ORDERED: CHOLECALCIFEROL 1,000 UNIT TAB PO SCH (09:00)
[2020-06-18] MEDS ORDERED: POTASSIUM CHLORIDE ER 10 MEQ TAB.ER.PRT PO SCH (09:00)
[2020-06-18] MEDS ORDERED: FUROSEMIDE 20 MG TAB PO SCH (09:00)
[2020-06-18] MEDS ORDERED: ISOSORBIDE MONONITRATE ER 30 MG TAB.ER.24H PO SCH (09:00)
[2020-06-18] MEDS: CALCIUM CARB-VIT D 500MG-200UN 1 EACH TAB PO SCH (09:10)
[2020-06-18] MEDS: hydrOXYzine pamoate 25 MG CAP PO SCH (09:11)
[2020-06-18] MEDS: DOCUSATE 100 MG CAP PO SCH (09:11)
[2020-06-18] MEDS: GABAPENTIN 300 MG CAP PO SCH (09:11)
[2020-06-18] MEDS: TOPIRAMATE 25 MG TAB PO SCH (09:12)
--- NOTE | 2020-06-18 10:01 | P.CRDCN ---
History of Present Illness Consult date: 06/18/20 History of present illness: CHIEF COMPLAINT: Chest pain HISTORY OF PRESENT ILLNESS: This is a 54-year old female with a past medical history significant for in obstructive coronary artery disease, COPD with home O2, hypertension, and hyperlipidemia. Patient follows in the office with Dr. Moreau. We have been asked to see the patient in consultation for chest pain. Patient examined this morning at the bedside. She reports she has been having chest pain intermittently for the past couple days. She states the pain starts in her back and does through to the front of her chest. She also reports some discomfort in her left shoulder and reports her left hand was cramping. She reports taking a sublingual nitroglycerin which did not help. At the time of examination this morning, the patient denies any chest pain or pressure. Patient underwent nuclear stress test in 2019 which was positive for ischemia. She reports having a cardiac catheterization since then with Dr. Costa at [facility]. She states she was found to have any significant blockages and medical management was advised. Troponin negative 3 DIAGNOSTICS: EKG reveals sinus rhythm with T-wave inversions in the precordial leads. Similar to EKG from 2019 Chest xray negative for acute cardiopulmonary process Laboratory data: WBC 6.9. Hemoglobin 13.1. Platelet count 301. D-dimer 0.44. Sodium 137. Potassium 4.5. BUN 13. Creatinine 1.23. Troponin negative 3. LDL 206. Current home cardiac medications include Lasix 20 mg every 48 hours, metoprolol 25 mg daily, Imdur 30 mg daily, Lipitor 10 mg daily, aspirin 81 mg daily REVIEW OF SYSTEMS: At the time of my exam: CONSTITUTIONAL: Denies fever or chills. HEENT: Denies blurred vision, vision changes, or eye pain. Denies hemoptysis CARDIOVASCULAR: Denies chest pain, orthopnea, PND or palpitations RESPIRATORY: No shortness of breath. GASTROINTESTINAL: Denies abdominal pain. Denies nausea or vomiting. HEMATOLOGIC: Denies bleeding disorders. GENITOURINARY: Denies any blood in urine. SKIN: Denies pruitis. Denies rash. PHYSICAL EXAM: VITAL SIGNS: Reviewed. GENERAL: Well-developed in no acute distress. HEENT: Head is normocephalic. Pupils are equal, round. Sclerae anicteric. Mucous membranes of the mouth are moist. Neck supple. No JVD or thyromegaly LUNGS: Respirations even and unlabored. Lungs diminished. HEART: Regular rate and rhythm. S1 and S2 heard. ABDOMEN: Soft. Nondistended. Nontender. EXTREMITIES: Normal range of motion. No clubbing or cyanosis. Peripheral pulses intact. No lower extremity edema NEUROLOGIC: Awake and alert. Oriented x 3. ASSESSMENT: Chest pain, troponins negative 3 Nonobstructive coronary artery disease, patient reports having cath in 2019 Hypertension Hyperlipidemia, LDL 206 COPD with home O2 Acute kidney injury Obesity: BMI 36.3 PLAN: Resume home cardiac medications Increase Lipitor to 40 mg daily Obtain 2-D echo to assess cardiac structure and function Patient to undergo dobutamine stress test today to assess for reversible ischemia Obtain records from [facility] from cardiac catheterization performed in 2019 Nurse practitioner note has been reviewed by physician. Signing provider agrees with the documented findings, assessment, and plan of care. Past Medical History Past Medical History: Coronary Artery Disease (CAD), Cancer, COPD, GERD/Reflux, Hyperlipidemia, Pneumonia, Renal Disease Additional Past Medical History / Comment(s): Pt states lately L eye vision has change-not as focused, COPD, home oxygen at 2L/NC ATC, pneumonia with sepsis, bronchitis, cervical cancer with surgeries, renal cysts, vitamin D deficiency, chronic low back pain, frequent migraines, insomnia, hyperglycemia with steroid use.. History of Any Multi-Drug Resistant Organisms: None Reported Past Surgical History: Appendectomy, Heart Catheterization, Hysterectomy, Orthopedic Surgery Additional Past Surgical History / Comment(s): Cervix cancer pt had frozen then 2 resections of lesion then hysterectomy, biltaral thumbs tendon surgery.. Past Anesthesia/Blood Transfusion Reactions: No Reported Reaction Smoking Status: Former smoker - Past Family History Mother Family Medical History: Hypertension Additional Family Medical History / Comment(s): Mother is 84 yrs old. Father Family Medical History: Cancer Additional Family Medical History / Comment(s): Father of lung cancer at the age of 83 yrs old Brother(s) Additional Family Medical History / Comment(s): Patient has 4 brothers and 2 brothers were murdered otherwise she does not know medical history. Patient has 11 sisters and does not know medical history. Patient has 4 daughters and 1 son with no major medical problems. Medications and Allergies Home Medications Medication Instructions Recorded Confirmed Type Isosorbide Mononitrate ER [Imdur] 30 mg PO DAILY 05/05/19 06/17/20 History Metoprolol Tartrate [Lopressor] 25 mg PO DAILY 05/05/19 06/17/20 History Nitroglycerin Sl Tabs [Nitrostat] 0.4 mg SUBLINGUAL Q5M PRN 05/05/19 06/17/20 History Potassium Chloride ER [K-Dur 10] 10 meq PO Q48H 05/05/19 06/17/20 History QUEtiapine FUMARATE [SEROquel] 300 mg PO HS 05/05/19 06/17/20 History Montelukast Sodium [Singulair] 10 mg PO HS 07/21/19 06/17/20 History Albuterol Inhaler [Ventolin Hfa 2 puff INHALATION RT-Q4H PRN 05/06/20 06/17/20 History Inhaler] Butalb/APAP/Caff 50-325-40Mg 1 tab PO Q8H PRN 05/06/20 06/17/20 History [Fioricet 50-325-40] FLUoxetine HCL [PROzac] 20 mg PO DAILY 05/06/20 06/17/20 History Gabapentin 600 mg PO TID 05/06/20 06/17/20 History HYDROcodone/APAP 7.5-325MG [[place] 1 tab PO BID PRN 05/06/20 06/17/20 History 7.5-325] Topiramate [Topamax] 50 mg PO BID 05/06/20 06/17/20 History hydrOXYzine pamoate [Vistaril] 25 mg PO BID 05/06/20 06/17/20 History tiZANidine [Zanaflex] 4 mg PO BID PRN 05/06/20 06/17/20 History Docusate [Colace] 100 mg PO BID #30 cap 05/07/20 06/17/20 Rx Aspirin EC [Ecotrin Low Dose] 81 mg PO DAILY 06/17/20 06/17/20 History Calcium Carbonate/Vitamin D3 1 tab PO BID 06/17/20 06/17/20 History [Calcium 600-Vit D3 200 Tablet] Cholecalciferol [Vitamin D3 (25 5,000 unit PO DAILY 06/17/20 06/17/20 History Mcg = 1000 Iu)] Fluticasone/Salmeterol 1 puff INHALATION RT-BID 06/17/20 06/17/20 History [Fluticasone-Salmeterol 232-14] Furosemide [Lasix] 20 mg PO Q48H 06/17/20 06/17/20 History Multivitamins, Thera [Multivitamin 1 tab PO DAILY 06/17/20 06/17/20 History (formulary)] Atorvastatin [Lipitor] 40 mg PO DAILY #90 tablet 06/18/20 Rx Allergies Allergy/AdvReac Type Severity Reaction Status Date / Time codeine AdvReac Nausea & Verified 06/17/20 11:17 Vomiting Physical Exam Vitals: Vital Signs Temp Pulse Pulse Resp BP BP Pulse Ox 06/18/20 07:56 97.5 F L 79 18 110/73 100 06/18/20 03:00 97.5 F L 84 16 99/66 99 06/17/20 21:00 97.9 F 78 17 110/74 100 06/17/20 15:15 98.0 F 94 18 100/55 100 06/17/20 15:00 94 18 06/17/20 14:50 98.7 F 85 18 104/79 99 06/17/20 12:35 92 18 96/75 100 06/17/20 10:42 85 18 104/71 99 Intake and Output 06/17/20 06/18/20 06/18/20 22:59 06:59 14:59 Intake Total 702 Balance 702 Intake: Oral 702 Other: Voiding Method Toilet Toilet Toilet # Voids 1 Results 06/17/20 10:00 06/17/20 10:00 Cardiac Enzymes 06/17/20 06/17/20 06/17/20 Range/Units 10:00 10:00 14:50 AST 38 H (14-36) U/L Troponin I <0.012 <0.012 (0.000-0.034) ng/mL 06/17/20 Range/Units 17:27 AST (14-36) U/L Troponin I <0.012 (0.000-0.034) ng/mL Coagulation 06/17/20 Range/Units 10:00 PT 9.5 (9.0-12.0) sec APTT 21.6 L (22.0-30.0) sec Lipids 06/18/20 Range/Units 06:51 Triglycerides 141 (<150) mg/dL Cholesterol 292 H (<200) mg/dL HDL Cholesterol 58 (40-60) mg/dL CBC 06/17/20 Range/Units 10:00 WBC 6.9 (3.8-10.6) k/uL RBC 4.21 (3.80-5.40) m/uL Hgb 13.1 (11.4-16.0) gm/dL Hct 41.9 (34.0-46.0) % Plt Count 301 (150-450) k/uL Comprehensive Metabolic Panel 06/17/20 Range/Units 10:00 Sodium 137 (137-145) mmol/L Potassium 4.5 (3.5-5.1) mmol/L Chloride 104 (98-107) mmol/L Carbon Dioxide 26 (22-30) mmol/L BUN 13 (7-17) mg/dL Creatinine 1.23 H (0.52-1.04) mg/dL Glucose 91 (74-99) mg/dL Calcium 9.5 (8.4-10.2) mg/dL AST 38 H (14-36) U/L ALT 27 (4-34) U/L Alkaline Phosphatase 163 H (38-126) U/L Total Protein 7.3 (6.3-8.2) g/dL Albumin 4.1 (3.5-5.0) g/dL Current Medications Generic Name Dose Route Start Last Admin Trade Name Freq PRN Reason Stop Dose Admin Acetaminophen 650 mg 06/17/20 15:41 06/17/20 15:56 Acetaminophen Tab 325 Mg Tab PO 650 mg Q6HR PRN Administration Fever and/ or Pain Acetaminophen/Butalbital/Caffeine 1 each 06/17/20 17:10 Butalb/Apap/Caff 50-325-40mg Tab PO Q8H PRN Migraine Headache Hydrocodone Bitart/Acetaminophen 1 each 06/17/20 17:10 Hydrocodone/Apap 7.5-325mg 1 Each Tab PO BID PRN Pain Albuterol Sulfate 2.5 mg 06/17/20 17:10 Albuterol Nebulized 2.5 Mg/3 Ml INHALATION RT-Q4H PRN Shortness Of Breath Aspirin 81 mg 06/18/20 09:00 06/18/20 09:10 Aspirin 81 Mg PO 81 mg DAILY HORTENCIA Administration Atorvastatin Calcium 10 mg 06/18/20 09:00 06/18/20 09:10 Atorvastatin 10 Mg Tab PO 10 mg DAILY HORTENCIA Administration Budesonide/Formoterol Fumarate 1 puff 06/17/20 20:00 06/18/20 08:02 Symbicort 160-4.5 Mcg Inhaler INHALATION 1 puff RT-BID HORTENCIA Administration Calcium Carbonate 1 each 06/17/20 21:00 06/18/20 09:10 Calcium Carb-Vit D 500mg-200un 1 Each Tab PO 1 each BID HORTENCIA Administration Cholecalciferol 5,000 unit 06/18/20 09:00 06/18/20 09:10 Cholecalciferol 1,000 Unit Tab PO 5,000 unit DAILY HROTENCIA Administration Docusate Sodium 100 mg 06/17/20 21:00 06/18/20 09:11 Docusate 100 Mg Cap PO 100 mg BID HORTENCIA Administration Fluoxetine HCl 20 mg 06/18/20 09:00 06/18/20 09:11 Fluoxetine Hcl 20 Mg Cap PO 20 mg DAILY HORTENCIA Administration Furosemide 20 mg 06/18/20 09:00 06/18/20 09:11 Furosemide 20 Mg Tab PO 20 mg Q48H HORTENCIA Administration Gabapentin 600 mg 06/17/20 22:00 06/18/20 09:11 Gabapentin 300 Mg Cap PO 600 mg TID HORTENCIA Administration Hydroxyzine Pamoate 25 mg 06/17/20 21:00 06/18/20 09:11 Hydroxyzine Pamoate 25 Mg Cap PO 25 mg BID HORTENCIA Administration Dobutamine HCl/Dextrose 500 mg 250 mls @ 31.57 mls/hr 06/18/20 08:30 / IV Solution IV 06/18/20 16:25 .Q7H56M ONE Protocol 10 MCG/KG/MIN Isosorbide Mononitrate 30 mg 06/18/20 09:00 06/18/20 09:12 Isosorbide Mononitrate Er 30 Mg Tab.Er.24h PO 30 mg DAILY HORTENCIA Administration Metoprolol Tartrate 25 mg 06/18/20 09:00 Metoprolol Tartrate 25 Mg Tab PO DAILY HORTENCIA Montelukast Sodium 10 mg 06/17/20 21:00 06/17/20 20:20 Montelukast 10 Mg Tab PO 10 mg HS HORTENCIA Administration Multivitamins 1 each 06/18/20 09:00 06/18/20 09:12 Multivitamins, Thera 1 Each Tab PO 1 each DAILY HORTENCIA Administration Nitroglycerin 0.4 mg 06/17/20 12:52 Nitroglycerin Sl Tabs 0.4 Mg Tab SUBLINGUAL Q5M PRN Chest Pain Potassium Chloride 10 meq 06/18/20 09:00 06/18/20 09:12 Potassium Chloride Er 10 Meq Tab.Er.Prt PO 10 meq Q48H HORTENCIA Administration Quetiapine Fumarate 300 mg 06/17/20 21:00 06/17/20 20:20 Quetiapine 100 Mg Tab PO 300 mg HS HORTENCIA Administration Sodium Chloride 10 ml 06/17/20 21:00 06/18/20 09:12 Sodium Chloride 0.9% Flush 10 Ml Syringe IV 10 ml BID HORTENCIA Administration Tizanidine HCl 4 mg 06/17/20 17:10 Tizanidine 4 Mg Tab PO BID PRN Muscle Spasm Topiramate 50 mg 06/17/20 21:00 06/18/20 09:12 Topiramate 25 Mg Tab PO 50 mg BID HORTENCIA Administration Intake and Output 06/17/20 06/18/20 06/18/20 22:59 06:59 14:59 Intake Total 702 Balance 702 Intake: Oral 702 Other: Voiding Method Toilet Toilet Toilet # Voids 1 06/17/20 10:00 06/17/20 10:00
--- NOTE | 2020-06-18 10:44 | ECHOF ---
Referral Reason:Chest pain MEASUREMENTS -------- HEIGHT: 170.2 cm WEIGHT: 105.2 kg BP: 96/75 IVSd: 1.2 cm (0.6 - 1.1) LVIDd: 3.2 cm (3.9 - 5.3) LVPWd: 1.3 cm (0.6 - 1.1) IVSs: 1.5 cm LVIDs: 2.5 cm LVPWs: 1.4 cm LAESV Index (A-L): 8.64 ml/m MV E Kumar: 0.72 m/s MV DecT: 141 ms MV A Kumar: 0.79 m/s MV E/A Ratio: 0.92 FINDINGS -------- Sinus rhythm. This was a technically difficult study with suboptimal views. The left ventricular size is normal. There is mild concentric left ventricular hypertrophy. Overa ll left ventricular systolic function is low-normal with, an EF between 50 - 55 %. The RV was not well visualized. The left atrium was not well visualized. The right atrium was not well visualized. xx ml of Lumason was utilized for enhancement of images. Interatrial and interventricular septum intact. The aortic valve was not well visualized. There is no evidence of aortic regurgitation. There is no evidence of aortic stenosis. The mitral valve was not well visualized. No mitral regurgitation. The tricuspid valve was not well visualized. The pulmonic valve was not well visualized. The aortic root size is normal. IVC Not well visulized. There is a trivial pericardial effusion present. CONCLUSIONS -------- 1. The left ventricular size is normal. 2. There is mild concentric left ventricular hypertrophy. 3. Overall left ventricular systolic function is low-normal with, an EF between 50 - 55 %. 4. There is a trivial pericardial effusion present. HOSE SPRAYER: Helen William, [facility]
--- NOTE | 2020-06-18 12:19 | P.STRESS ---
- Stress Test Note Stress Test Results/Findings: Exam Performed: dobutamine stress echo with con Exam Date: 06/18/20 Reason for Exam: CHEST PAIN Height: 5 ft 7 in Weight: 105.23 kg Protocol: DSE Stage: 3 Duration of Exercise: 7:00 Resting Heart Rate: 89 Resting Blood Pressure: 102/65 Maximum Achieved Heart Rate: 154 Maximum Achieved Blood Pressure: 105/53 85% PMHR: 141 100% PMHR: 166 METS: NA Technologist Comment: Stress Test Results/Findings: This [id number] female with history of hypercholesteremia, family history of ischemic heart disease being evaluated for chest pain and shortness of breath. Stress data: Baseline EKG showed sinus rhythm at all. NM interval, QRS duration. Blood pressure at rest is 102/65 with pulse rate of 89. A standard dose of dobutamine was initiated at 10 mics and was titrated to 30 mics achieved a maximum rate of 154 with a blood pressure 102/58. EKG taken during and after the dobutamine infusion did not reveal any change of ischemia Echo data: This is done with contrast. Baseline echo images show normal wall motion and thickening. Images taken at low dose and high dose dobutamine showed augmentation of the wall motion and thickening in all the segments. Final impression: #1. Negative dobutamine stress test #2. Negative dobutamine stress echo.
--- NOTE | 2020-06-18 12:31 | ECHOS ---
Stress Test Results/Findings: Exam Performed: dobutamine stress echo with con Exam Date: 06/18/20 Reason for Exam: CHEST PAIN Height: 5 ft 7 in Weight: 105.23 kg Protocol: DSE Stage: 3 Duration of Exercise: 7:00 Resting Heart Rate: 89 Resting Blood Pressure: 102/65 Maximum Achieved Heart Rate: 154 Maximum Achieved Blood Pressure: 105/53 85% PMHR: 141 100% PMHR: 166 METS: NA Technologist Comment: Stress Test Results/Findings: This [id number] female with history of hypercholesteremia, family history of ischemic heart disease being evaluated for chest pain and shortness of breath. Stress data: Baseline EKG showed sinus rhythm at all. MT interval, QRS duration. Blood pressure at rest is 102/65 with pulse rate of 89. A standard dose of dobutamine was initiated at 10 mics and was titrated to 30 mics achieved a maximum rate of 154 with a blood pressure 102/58. EKG taken during and after the dobutamine infusion did not reveal any change of ischemia Echo data: This is done with contrast. Baseline echo images show normal wall motion and thickening. Images taken at low dose and high dose dobutamine showed augmentation of the wall motion and thickening in all the segments. Final impression: #1. Negative dobutamine stress test #2. Negative dobutamine stress echo. [facility]
--- NOTE | 2020-06-18 12:33 | P.DS ---
Providers Date of admission: 06/17/20 12:52 Expected date of discharge: 06/18/20 Attending physician: Luis Barney Consults: 06/17/20 12:52 Consult Physician Urgent Consulting Provider: Lonnie Oviedo Consult Reason/Comments: cp Do you want consulting provider notified?: Yes Primary care physician: [facility] Course: 54-year-old mildly overweight female one of the [facility] patient with past medical history of CAD with mild blockage found on angiogram was done in early 2018, also known to have history of COPD, history of hypertension and hype rlipidemia was hospitalized in [facility] in 1916 2023 acute appendicitis post appendectomy has done well ended up being discharged home after 48 hours successfully with no major problem. Patient presented to the emergency department at [facility] today complaining of recurrent chest pain on and off in the midsternal area radiating toward the left upper side of her chest wall and shoulder area associated with significant shortness of breath mild lightheadedness and dizziness with nausea with no vomiting significant change in blood pressure. Patient apparently was diagnosed with mild coronary artery disease in 2019 the angiogram after positive stress test. Patient was on medical management did not require any angioplasty or stent placement. According to her activity has been significantly decreased lately with worsening symptom with minimum exertion also her blood pressure fluctuated and sometimes quite bit low causing her to be lightheaded and dizzy with exertion along with a chest pain happening same time. 06/18: Patient was seen by cardiology and dobutamine stress echo was completed, testing was negative and patient was cleared by cardiology for discharge home wi plan for follow-up with Dr. Moreau. Lipitor was increased to 40 mg daily. Echocardiogram reveals EF of 50-55% with mild concentric left ventricular hypertrophy, trivial pericardial effusion. Patient will be discharged home today in stable condition. Discharge diagnoses: 1 chest pain, acute coronary syndrome ruled out. 2 significant dyspnea and shortness of breath 3 COPD with mild exacerbation 4 hypertension 5 hyperlipidemia 6 mild arrhythmia 7 chronic bipolar disorder 8 chronic edema 9 chronic headache and recurrent migraine Discharge plan: Home Impression and plan of care have been directed as dictated by the signing physician. Suni Alicea nurse practitioner acting as scribe for signing physician. Plan - Discharge Summary Discharge Rx Participant: No New Discharge Prescriptions: New Atorvastatin [Lipitor] 40 mg PO DAILY #90 tablet Continue QUEtiapine FUMARATE [SEROquel] 300 mg PO HS Potassium Chloride ER [K-Dur 10] 10 meq PO Q48H Nitroglycerin Sl Tabs [Nitrostat] 0.4 mg SUBLINGUAL Q5M PRN PRN Reason: Chest Pain Metoprolol Tartrate [Lopressor] 25 mg PO DAILY Isosorbide Mononitrate ER [Imdur] 30 mg PO DAILY Montelukast Sodium [Singulair] 10 mg PO HS hydrOXYzine pamoate [Vistaril] 25 mg PO BID Albuterol Inhaler [Ventolin Hfa Inhaler] 2 puff INHALATION RT-Q4H PRN PRN Reason: Shortness Of Breath Topiramate [Topamax] 50 mg PO BID HYDROcodone/APAP 7.5-325MG [[place] 7.5-325] 1 tab PO BID PRN PRN Reason: Pain tiZANidine [Zanaflex] 4 mg PO BID PRN PRN Reason: Muscle Spasm Gabapentin 600 mg PO TID Butalb/APAP/Caff 50-325-40Mg [Fioricet 50-325-40] 1 tab PO Q8H PRN PRN Reason: Migraine Headache FLUoxetine HCL [PROzac] 20 mg PO DAILY Docusate [Colace] 100 mg PO BID #30 cap Aspirin EC [Ecotrin Low Dose] 81 mg PO DAILY Calcium Carbonate/Vitamin D3 [Calcium 600-Vit D3 200 Tablet] 1 tab PO BID Cholecalciferol [Vitamin D3 (25 Mcg = 1000 Iu)] 5,000 unit PO DAILY Fluticasone/Salmeterol [Fluticasone-Salmeterol 232-14] 1 puff INHALATION RT- BID Furosemide [Lasix] 20 mg PO Q48H Multivitamins, Thera [Multivitamin (formulary)] 1 tab PO DAILY Discharge Medication List Isosorbide Mononitrate ER [Imdur] 30 mg PO DAILY 05/05/19 [History] Metoprolol Tartrate [Lopressor] 25 mg PO DAILY 05/05/19 [History] Nitroglycerin Sl Tabs [Nitrostat] 0.4 mg SUBLINGUAL Q5M PRN 05/05/19 [History] Potassium Chloride ER [K-Dur 10] 10 meq PO Q48H 05/05/19 [History] QUEtiapine FUMARATE [SEROquel] 300 mg PO HS 05/05/19 [History] Montelukast Sodium [Singulair] 10 mg PO HS 07/21/19 [History] Albuterol Inhaler [Ventolin Hfa Inhaler] 2 puff INHALATION RT-Q4H PRN 05/06/20 [History] Butalb/APAP/Caff 50-325-40Mg [Fioricet 50-325-40] 1 tab PO Q8H PRN 05/06/20 [History] FLUoxetine HCL [PROzac] 20 mg PO DAILY 05/06/20 [History] Gabapentin 600 mg PO TID 05/06/20 [History] HYDROcodone/APAP 7.5-325MG [[place] 7.5-325] 1 tab PO BID PRN 05/06/20 [History] Topiramate [Topamax] 50 mg PO BID 05/06/20 [History] hydrOXYzine pamoate [Vistaril] 25 mg PO BID 05/06/20 [History] tiZANidine [Zanaflex] 4 mg PO BID PRN 05/06/20 [History] Docusate [Colace] 100 mg PO BID #30 cap 05/07/20 [Rx] Aspirin EC [Ecotrin Low Dose] 81 mg PO DAILY 06/17/20 [History] Calcium Carbonate/Vitamin D3 [Calcium 600-Vit D3 200 Tablet] 1 tab PO BID 06/17/20 [History] Cholecalciferol [Vitamin D3 (25 Mcg = 1000 Iu)] 5,000 unit PO DAILY 06/17/20 [History] Fluticasone/Salmeterol [Fluticasone-Salmeterol 232-14] 1 puff INHALATION RT-BID 06/17/20 [History] Furosemide [Lasix] 20 mg PO Q48H 06/17/20 [History] Multivitamins, Thera [Multivitamin (formulary)] 1 tab PO DAILY 06/17/20 [History] Atorvastatin [Lipitor] 40 mg PO DAILY #90 tablet 06/18/20 [Rx] Follow up Appointment(s)/Referral(s): [facility] RadhaHannibal [Primary Care Provider] - 1 Week Orion Moreau MD [Family Provider] - 1 Week Discharge Disposition: HOME SELF-CARE
[2020-06-19] MEDS ORDERED: ATORVASTATIN 40 MG TAB PO SCH (09:00)
== END 2020-06-18 14:39 | disposition home or self-care (01) ==
LOC: EC 09:33 → 3NCARDOBS 12:52
PROVIDERS: ADMIT Internal Medicine Geriatric Medicine; ATTEND Internal Medicine Geriatric Medicine
DX: R07.9 Chest pain, unspecified (principal); R06.02 Shortness of breath; R42 Dizziness and giddiness; R11.0 Nausea; J44.1 Chronic obstructive pulmonary disease with (acute) exacerbation; E66.9 Obesity, unspecified; E78.5 Hyperlipidemia, unspecified; I25.10 Atherosclerotic heart disease of native coronary artery without angina pectoris; F31.9 Bipolar disorder, unspecified; F43.10 Post-traumatic stress disorder, unspecified; G43.909 Migraine, unspecified, not intractable, without status migrainosus; R60.9 Edema, unspecified; I11.9 Hypertensive heart disease without heart failure; Z68.36 Body mass index [BMI] 36.0-36.9, adult; Z79.82 Long term (current) use of aspirin; Z79.899 Other long term (current) drug therapy; Z85.41 Personal history of malignant neoplasm of cervix uteri; Z87.891 Personal history of nicotine dependence
CPT/HCPCS: 93005 ×2; 99285; 36415; 94640 ×2; 85379; 80061; 80053; 83735; 84484; 85025; 85610; 85730; 71046; G0378 ×2; C8929; C8930; J1250; Q9950 ×2; 93306; 93351

== ENCOUNTER 2020-08-03 14:59 | Emergency (ER) | payer OTHER ==
[2020-08-03] MEDS ORDERED: METOCLOPRAMIDE 5 MG/ML 2 ML VIAL IVP STA (15:21)
[2020-08-03] MEDS ORDERED: SODIUM CHLORIDE 0.9% 1,000 ML IV STA (15:21)
[2020-08-03] MEDS ORDERED: ASPIRIN 81 MG PO STA (15:21)
[2020-08-03] MEDS ORDERED: NITROGLYCERIN OINT 1 INCH/GM PACKET TOPICAL STA (15:21)
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
[2020-08-03 15:48] LABS: Basophils % (A) 1 %; Eosinophils # (A) 0.1 k/uL (0-0.7); Eosinophils % (A) 1 %; HCT 38.2 % (34.0-46.0); HGB 12.7 gm/dL (11.4-16.0); Lymphocytes % (A) 35 %; MCH 32.9 pg (25.0-35.0); MCHC 33.2 g/dL (31.0-37.0); MCV 99.2 fL (80.0-100.0); Mean Platelet Volume 7.9; Monocytes # (A) 0.3 k/uL (0-1.0); Monocytes % (A) 6 %; Neutrophils # (A) 3.2 k/uL (1.3-7.7); Neutrophils % (A) 56 %; Platelet Count 257 k/uL (150-450); RBC 3.86 m/uL (3.80-5.40); RDW 13.2 % (11.5-15.5); WBC 5.7 k/uL (3.8-10.6)
[2020-08-03 16:00] LABS: Albumin 3.9 g/dL (3.5-5.0); Calcium 9.3 mg/dL (8.4-10.2); D-Dimer 0.51 mg/L FEU (<0.60); INR 0.9 (<1.2); Magnesium 2.2 mg/dL (1.6-2.3); Partial Thromboplastin Time 22.4 sec (22.0-30.0); Potassium 4.1 mmol/L (3.5-5.1); Prothrombin Time 9.5 sec (9.0-12.0); Total Bilirubin 0.3 mg/dL (0.2-1.3); Total Protein 6.8 g/dL (6.3-8.2)
--- NOTE | 2020-08-03 16:08 | XR ---
EXAMINATION TYPE: XR chest 2V DATE OF EXAM: 08/03/2020 COMPARISON: Chest x-ray June 17, 2020 HISTORY: Syncope and nausea today. Chest pain. TECHNIQUE: Frontal and lateral views of the chest are obtained. FINDINGS: There is chronic parenchymal changes bilaterally without suspicious focal air space opacity, pleural effusion, or pneumothorax seen. The cardiac silhouette size remains within normal limits. The osseous structures remain demineralized. IMPRESSION: Chronic changes without acute pulmonary process.
[2020-08-03 18:18] VITALS: BP 116/72; PULSE 66; RESP 18; TEMP 98.5
== END 2020-08-03 18:10 | disposition home or self-care (01) ==
LOC: EC 14:59
DX: R42 Dizziness and giddiness (principal); R55 Syncope and collapse; R11.2 Nausea with vomiting, unspecified; R06.02 Shortness of breath; R07.9 Chest pain, unspecified; J44.9 Chronic obstructive pulmonary disease, unspecified; K21.9 Gastro-esophageal reflux disease without esophagitis; E78.5 Hyperlipidemia, unspecified; F41.9 Anxiety disorder, unspecified; F32.9 Major depressive disorder, single episode, unspecified; F43.10 Post-traumatic stress disorder, unspecified; Z79.82 Long term (current) use of aspirin; Z79.899 Other long term (current) drug therapy; Z88.5 Allergy status to narcotic agent; Z99.81 Dependence on supplemental oxygen; Z95.5 Presence of coronary angioplasty implant and graft; Z90.710 Acquired absence of both cervix and uterus; Z87.891 Personal history of nicotine dependence; Z86.69 Personal history of other diseases of the nervous system and sense organs; Z85.41 Personal history of malignant neoplasm of cervix uteri; Z80.1 Family history of malignant neoplasm of trachea, bronchus and lung
CPT/HCPCS: 36415; 93005; 85379; 83880; 80053; 83735; 84484; 85025; 85610; 85730; 71046; 99284; 96374; 96361 ×2; J2765

== ENCOUNTER 2020-12-14 15:45 | Emergency (ER) | payer OTHER ==
[2020-12-14] MEDS ORDERED: HYDROmorphone 1 MG/ML 1 ML SYRINGE IVP STA (17:06)
[2020-12-14] MEDS ORDERED: SODIUM CHLORIDE 0.9% 1,000 ML IV SCH (17:15)
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
[2020-12-14 17:27] LABS: Basophils % (A) 0 %; Eosinophils # (A) 0.1 k/uL (0-0.7); Eosinophils % (A) 2 %; HCT 38.4 % (34.0-46.0); Lymphocytes # (A) 2.4 k/uL (1.0-4.8); Lymphocytes % (A) 31 %; MCH 33.3 pg (25.0-35.0); MCV 98.1 fL (80.0-100.0); Mean Platelet Volume 8.1; Monocytes # (A) 0.4 k/uL (0-1.0); Monocytes % (A) 5 %; Neutrophils # (A) 4.6 k/uL (1.3-7.7); Neutrophils % (A) 60 %; Platelet Count 229 k/uL (150-450); RBC 3.91 m/uL (3.80-5.40); RDW 12.9 % (11.5-15.5); WBC 7.6 k/uL (3.8-10.6)
[2020-12-14 17:44] LABS: Albumin 4.2 g/dL (3.5-5.0); Calcium 9.5 mg/dL (8.4-10.2); Potassium 4.3 mmol/L (3.5-5.1); Total Bilirubin 0.3 mg/dL (0.2-1.3); Total Protein 7.2 g/dL (6.3-8.2)
[2020-12-14 17:49] LABS: INR 0.9 (<1.2); Prothrombin Time 9.6 sec (9.0-12.0)
[2020-12-14 18:23] LABS: Appearance,Urine Cloudy (Clear); Bilirubin,Urine Negative (Negative); Blood,Urine Negative (Negative); Color,Urine Yellow; Glucose,Urine (UA) Negative (Negative); Hyaline Casts,Urine 62 /lpf (0-2); Ketones,Urine Trace (Negative); Leukocyte Esterase,Urine Small (Negative); Mucus,Urine Many /hpf; Nitrite,Urine Negative (Negative); Protein,Urine 1+ (Negative); RBC,Urine 2 /hpf (0-5); Specific Gravity,Urine 1.033 (1.001-1.035); Squamous Epithelial Cell,Urine 12 /hpf (0-4); WBC,Urine 6 /hpf (0-5)
--- NOTE | 2020-12-14 18:46 | CT ---
EXAMINATION TYPE: CT lumbar spine w con DATE OF EXAM: 12/14/2020 COMPARISON: 05/06/2020 HISTORY: Back pain. CT DLP: 1229.6 mGycm Automated exposure control for dose reduction was used. CONTRAST: Performed with IV Contrast, patient injected with 100 mL of Isovue 300. Images obtained from the level of T12-S2 vertebra with IV contrast. Lumbar vertebra have normal spacing and alignment. There is no compression fracture. Facet joints are intact. Abdominal aorta is atheromatous. There is no lumbar paraspinal mass. The posterior elements are intact. Sacroiliac joints are intact. There is hypertrophic facet arthropathy and ligamentum flavum thickening with spinal stenosis at L4-5 . There is mild relative spinal stenosis also at L3-4. I see no focal bone destruction. IMPRESSION: No fracture. No significant disc space narrowing. L4-5 and L3-4 spinal stenosis as above. No significant change compared to old exam.
[2020-12-14 18:50] VITALS: BP 139/97; TEMP 98.5
--- NOTE | 2020-12-14 19:04 | XR ---
EXAMINATION TYPE: XR tibia fibula LT DATE OF EXAM: 12/14/2020 COMPARISON: NONE HISTORY: Leg pain TECHNIQUE: 3 views FINDINGS: The knee joint is intact. Tibia and fibula appear intact. I see no fracture nor dislocation . Ankle mortise appears normal. There is no sign of knee joint effusion. IMPRESSION: Negative left tibia and fibula exam.
--- NOTE | 2020-12-14 19:05 | XR ---
EXAMINATION TYPE: XR chest 2V DATE OF EXAM: 12/14/2020 COMPARISON: 12/03/2019 HISTORY: Fever TECHNIQUE: FINDINGS: Heart and mediastinum are normal. Lungs are clear. Diaphragm is normal. Bony thorax is inta ct. Pulmonary vascularity is normal. IMPRESSION: Normal chest. No change.
[2020-12-14 21:06] VITALS: PULSE 78; RESP 16
--- NOTE | 2020-12-14 21:59 | US ---
EXAMINATION TYPE: US venous doppler duplex LE LT DATE OF EXAM: 12/14/2020 7:34 PM COMPARISON: US CLINICAL HISTORY: pain. Pain x couple months. No hx of DVT. Patient does not take blood thinners. SIDE PERFORMED: Left TECHNIQUE: The lower extremity deep venous system is examined utilizing real time linear array sonog jorge with graded compression, doppler sonography and color-flow sonography. VESSELS IMAGED: Common Femoral Vein Deep Femoral Vein Greater Saphenous Vein * Femoral Vein Popliteal Vein Small Saphenous Vein * Proximal Calf Veins (* superficial vessels) Left Leg: Limited due to edema. No evidence of DVT in veins imaged at this time. IMPRESSION: No evidence of deep vein thrombosis in the left leg.
== END 2020-12-14 21:06 | disposition home or self-care (01) ==
LOC: EC 15:45
DX: M79.605 Pain in left leg (principal); M54.5 Low back pain; R39.15 Urgency of urination; I25.10 Atherosclerotic heart disease of native coronary artery without angina pectoris; J44.9 Chronic obstructive pulmonary disease, unspecified; K21.9 Gastro-esophageal reflux disease without esophagitis; E78.5 Hyperlipidemia, unspecified; F41.9 Anxiety disorder, unspecified; F32.9 Major depressive disorder, single episode, unspecified; Z79.899 Other long term (current) drug therapy; Z79.51 Long term (current) use of inhaled steroids; Z79.82 Long term (current) use of aspirin; Z88.5 Allergy status to narcotic agent; Z87.891 Personal history of nicotine dependence; Z90.710 Acquired absence of both cervix and uterus
CPT/HCPCS: 36415; 80053; 83605; 85025; 85610; 85730; 81001; 87040; 87086; 87636; 73590; 71046; 93971; 72132; 99284; 96374; 96361 ×3; J1170; Q9967